=== PATIENT | female | born 1960 | race Caucasian/White ===

== ENCOUNTER 2023-08-24 18:48 | Emergency (ER) | payer MEDICARE, OTHER, SELFPAY ==
[2023-08-24 18:51] VITALS: BP 139/89; PULSE 74; RESP 18; TEMP 36.2; O2SAT 99
[2023-08-24 23:23] LABS: Basophils Percent Auto 0.5 % (0.2-1.2); Eosinophils Absolute Auto 0.1 K/mm3 (0-0.3); Eosinophils Percent Auto 1.8 % (0-4.4); Hematocrit 34.2 % (37.0-47.0); Hemoglobin 11.3 g/dL (12.0-15.0); Immature Granulocyte Absolute 0.01 K/mm3 (0.00-0.031); Immature Granulocyte Percent A 0.3 % (0-0.5); Lymphocytes Percent Auto 15.2 % (18.3-44.2); Mean Corpuscular Hemoglobin 31.1 pg (26-34); Mean Corpuscular Volume 94.2 fl (80-100); Mean Platelet Volume 10.6 fl (7.4-10.4); Monocytes Absolute Auto 0.3 K/mm3 (0.1-0.6); Monocytes Percent Auto 7.9 % (2.6-8.5); Neutrophils Absolute Auto 2.9 K/mm3 (1.3-6.7); Neutrophils Percent Auto 74.3 % (45.5-73.1); Platelet Count Result 186 k/mm3 (150-375); Red Blood Count 3.63 M/mm3 (4.2-5.4); Red Cell Distribution Width 12.3 % (11.5-14.5); White Blood Count 3.9 K/mm3 (4.5-10.0)
[2023-08-24 23:36] VITALS: BP 124/92; PULSE 69; RESP 15; O2SAT 100
[2023-08-24 23:37] VITALS: O2SAT 100
[2023-08-24 23:38] LABS: Alanine Aminotransferase 13 U/L (6-35); Albumin Level 4.2 g/dL (3.5-5.1); Alkaline Phosphatase 53 U/L (38-126); Anion Gap 8 mmol/L (8-16); Aspartate Amino Transferase 20 U/L (14-36); Bilirubin,Total 0.6 mg/dL (0.2-1.3); Blood Urea Nitrogen 7 mg/dL (7-17); Calcium 9.4 mg/dL (8.4-10.2); Carbon Dioxide 32 mmol/L (22-30); Chloride 90 mmol/L (98-107); Estimated CRCL calculation 83 ml/min; Estimated Glomerular Filt Rate > 60; Glucose 82 mg/dL (65-110); Lipase 37 U/L (23-300); Sodium 130 mmol/L (137-145)
[2023-08-25 00:27] VITALS: BP 124/85; PULSE 64; RESP 16; O2SAT 100
[2023-08-25 00:29] LABS: Bacteria Urine 4+ /hpf; Non Pathogenic Casts 0-2; RBC Urine 0-2 /hpf (0-2); Squamous Epithelial Cell Urine None seen /hpf (Few)
[2023-08-25 00:34] LABS: Add Urine Microscopic? YES; Appearance Urine Cloudy (Clear); Bilirubin Urine Negative (Negative); Blood Urine Trace (Negative); Color Urine Yellow (Yellow); Glucose Urine UA Negative (Negative); Ketones Urine 1+ mg/dL (Negative); Leukocyte Esterase Ur 1+ LEU/UL (Negative); Nitrate Urine Positive (Negative); Protein Urine Negative (Negative); Urobilinogen Urine 0.2 mg/dL (<2.0); pH Urine 6.5 (5.0-9.0)
--- NOTE | 2023-08-25 00:50 | ED.GENADULT ---
HPI - General Adult General Chief complaint: Abdominal Pain Stated complaint: abd pain/sob Time Seen by Provider: 08/25/23 00:07 Source: patient Mode of arrival: ambulatory Limitations: no limitations History of Present Illness HPI narrative: This is a 63-year-old female who presents to the ED with chief complaints of multiple loose stools head reports they are watery in nature or pleural denies a bladder lift his. Denies abdominal pain, nausea or vomiting. Denies any urinary complaints, fevers or chills. No recent illness. Review of Systems Review of Systems: All systems as dictated in HPI Exam Narrative: GENERAL: Well-appearing, well-nourished, and in no acute distress. HEAD: Normocephalic, atraumatic. EYES: PERRLA and EOMI. ENT: Nares clear, no rhinorrhea or epistaxis. Mucous membranes moist. Oropharynx without tonsillar hypertrophy exudate or other lesions. NECK: Supple. No adenopathy or masses. CHEST: No respiratory distress. Clear to auscultation. No wheezes rales or rhonchi. 100% on 3 L, her home baseline HEART: Regular rate and rhythm. No murmur heard. Normal peripheral pulses. ABDOMEN: Soft, nontender, nondistended, normal active bowel sounds. MSK: Normal range of motion. No edema. SKIN: Warm, dry, no rash. NEURO: Alert and oriented x3. No focal deficits. PSYCH: Normal mood and affect. Course Vital Signs Vital signs: Vital Signs Temperature 97.1 F L 08/24/23 18:51 Pulse Rate 74 08/24/23 18:51 Respiratory Rate 18 08/24/23 18:51 Blood Pressure 139/89 08/24/23 18:51 Pulse Oximetry 99 08/24/23 18:51 Oxygen Delivery Nasal Cannula 08/24/23 18:51 Oxygen Flow Rate 2 08/24/23 18:51 Temperature 97.9 F 08/25/23 01:08 Pulse Rate 70 08/25/23 01:08 Respiratory Rate 20 08/25/23 01:08 Blood Pressure 128/65 08/25/23 01:08 Pulse Oximetry 100 08/25/23 01:08 Oxygen Delivery Nasal Cannula 08/24/23 23:37 Oxygen Flow Rate 3 08/24/23 23:37 Medical Decision Making MDM Narrative Medical decision making narrative: This is a 63-year-old female who presents to the ED with chief complaint of a months worth of diarrhea. Vitals at home. Afebrile. Exam was unremarkable. No evidence of acute abdomen. Lab work only remarkable for slight anemia with hemoglobin of 11.3. No leukocytosis. CMP shows slightly low sodium at 12:00 a.m. with urinary. Otherwise CMP is really unremarkable. Lipase normal. Urinalysis is remarkable for a nitrite positive urine with 1+ leuks 11-20 whites, 4+ bacteria. Cultures were sent of the urine. She will be given prescription for Keflex for this. This may be contributing to her systemic symptoms of diarrhea, but this may be another issue. She has no flank pain. She came in on 3 L which is her home oxygen for COPD. She is stable for discharge home. GI referral given. pt will be discharged in stable condition. Return precautions given and supportive measures discussed. Pt is understanding and agreeable with plan for discharge and follow-up with PCP. Vital Signs Vital Signs: Vital Signs Temperature 97.1 F L 08/24/23 18:51 Pulse Rate 74 08/24/23 18:51 Respiratory Rate 18 08/24/23 18:51 Blood Pressure 139/89 08/24/23 18:51 Pulse Oximetry 99 08/24/23 18:51 Oxygen Delivery Nasal Cannula 08/24/23 18:51 Oxygen Flow Rate 2 08/24/23 18:51 Temperature 97.9 F 08/25/23 01:08 Pulse Rate 70 08/25/23 01:08 Respiratory Rate 20 08/25/23 01:08 Blood Pressure 128/65 08/25/23 01:08 Pulse Oximetry 100 08/25/23 01:08 Oxygen Delivery Nasal Cannula 08/24/23 23:37 Oxygen Flow Rate 3 08/24/23 23:37 Lab Data 08/24/23 23:03 08/24/23 23:03 Labs: Lab Results 08/24/23 08/24/23 Range/Units 23:03 23:52 WBC 3.9 L (4.5-10.0) K/mm3 RBC 3.63 L (4.2-5.4) M/mm3 Hgb 11.3 L (12.0-15.0) g/dL Hct 34.2 L (37.0-47.0) % MCV 94.2 (80-100) fl MCH 31.1 (26-34) pg MC
[2023-08-25] MEDS: CEPHALEXIN 500 MG CAPSULE PO (01:03)
[2023-08-25 01:08] VITALS: BP 128/65; PULSE 70; RESP 20; TEMP 36.6; O2SAT 100
== END 2023-08-25 01:09 | disposition home or self-care (01) ==
PROVIDERS: Emergency Medicine; Emergency Provider Physician Assistant; PCP Internal Medicine
DX: N39.0 Urinary tract infection, site not specified (principal)
CPT/HCPCS: 36415; 80053; 81001; 83690; 85025; 87077; 87086; 87186; 99283; A9270

== ENCOUNTER 2023-09-11 13:32 | Outpatient (CLI) | payer MEDICARE, OTHER, SELFPAY ==
[2023-09-11 16:03] LABS: CRP < 0.5 mg/dL (<1.0)
[2023-09-11 16:06] LABS: Erythrocyte Sedimentation Rate 23 mm/hr (0-20)
[2023-09-17 00:58] LABS: Tissue Transglutaminase IgG Ab <1.0 U/mL (<15.0)
[2023-09-17 11:49] LABS: Tissue Transglutaminase IgA Ab <1.0 U/mL (<15.0)
== END 2023-09-11 13:33 | disposition home or self-care (01) ==
PROVIDERS: PCP Internal Medicine; Visit Provider Internal Medicine Gastroenterology
DX: R19.7 Diarrhea, unspecified (principal)
CPT/HCPCS: 36415; 85652; 86140; 86364; 87177; 87209

== ENCOUNTER 2023-10-08 00:33 | Day surgery (SDC) | payer MEDICARE, OTHER, SELFPAY ==
[2023-09-12 13:48] VITALS: BMI 17.5
--- NOTE | 2023-10-06 09:51 | SUR.PREOP ---
Patient called regarding upcoming procedure. Reviewed preop instructions, appointment times, and procedure prep. Pt stated she could not find Magnesium Citrate and had been to several different store. Instructed pt to omit it for the prep. Stressed the importance of taking all of the Mirlax solution. Patient voiced understanding.
[2023-10-08 11:52] VITALS: BP 106/79; PULSE 92; RESP 18; TEMP 36.2; O2SAT 95
[2023-10-08] MEDS: LACTATED RINGERS 1,000 ML 150 ML IV CONT (11:59)
--- NOTE | 2023-10-08 12:01 | P.PNAN_ITS ---
Anes - Initial Pre Proc Eval Procedure: Operation Date: 10/08/23 12:30 Proposed Procedures p Colonoscopy - Jack Boswell MD Date/Time: 10/08/23 12:01 Surgeon: Jack Boswell MD Pre Op Diagnosis: diarrhea Patient Data Age: 63 Gender: F Height: 1.6 m Weight: 43.8 kg Last Vital Signs Temp 97.2 F L 10/08/23 11:52 Pulse 92 10/08/23 11:52 Resp 18 10/08/23 11:52 BP 106/79 10/08/23 11:52 Pulse Ox 95 10/08/23 11:52 O2 Del Method Nasal Cannula 10/08/23 11:52 O2 Flow Rate 3 10/08/23 11:52 Allergies Allergy/AdvReac Type Severity Reaction Status Date / Time No Known Allergies Allergy Verified 10/08/23 11:51 Home Medications Medication Instructions Recorded Confirmed Type albuterol sulfate 90 mcg/actuation 1 inh inhalation Q4H 09/11/23 10/08/23 History aerosol inhaler budesonide-formoterol HFA 160 2 puff inhalation Q12H 09/11/23 10/08/23 History mcg-4.5 mcg/actuation aerosol inhaler (Symbicort) sertraline 50 mg tablet 50 mg PO DAILY 09/11/23 10/08/23 History tiotropium bromide 18 mcg capsule 1 cap inhalation DAILY 09/11/23 10/08/23 History with inhalation device (Spiriva with HandiHaler) Patient hx anesthesia problems: none Family hx anesthesia problems: none Results Review: All pre-operative results and documents have been reviewed as part of the pre- operative evaluation. [facility] Past Medical History Medical History (Updated 09/11/23 @ 13:29 by Jack Boswell MD) Allergies Anxiety COPD (chronic obstructive pulmonary disease) Diarrhea Lower abdominal pain Mucus in stool Family History Family History Father Diabetes mellitus Esophageal cancer Heart disease Hypertension Mother COPD (chronic obstructive pulmonary disease) Social History Social History Smoking packs per day: 1 Smoking cigarettes per day: 20.0 Years smoked: 25 Smoking pack-years: 25.00 Smoking status: Former smoker Tobacco type: cigarettes Alcohol intake: never Substance use: never Substance use type: does not use Living arrangements: with family Spiritual care concerns: No Anes - Eval Final PreProcedure Day of Procedure 10/08/23 12:01 Patient weight: normal Heart: regular rate and rhythm Lungs: clear to auscultation Neurological: alert and oriented Last oral intake: >/= 8 hours Emergent: no Anesthetic plan: proceed Results Review: All pre-operative results and documents have been reviewed as part of the pre- operative evaluation. Informed Consent: The patient's anesthetic plan and its attendant risks and benefits were discussed with the patient/family/POA. Questions were solicited and answers provided to the satisfaction of the patient/family/POA.
--- NOTE | 2023-10-08 12:07 | WPDHPUPDATE1 ---
History and Physical Update Update Date/Time: 10/08/23 12:07 History and Physical has been reviewed, including an updated exam of the patient. There are NO changes in the patient's condition. Risks, benefits, and alternatives have been discussed and questions answered. Patient agrees to proceed with procedure.
[2023-10-08 12:44] VITALS: BP 109/78; PULSE 86; RESP 16; O2SAT 96
[2023-10-08 12:54] VITALS: BP 115/80; PULSE 83; RESP 20; O2SAT 97
[2023-10-08 13:04] VITALS: BP 123/82; PULSE 76; RESP 19; O2SAT 100
--- NOTE | 2023-10-08 14:24 | SUR.PHASEII ---
1305 Removed EKG electrode from left arm causing a skin tear. Skin tear dressed in Mepilex.
== END 2023-10-08 13:16 | disposition home or self-care (01) ==
PROVIDERS: PCP Internal Medicine; Visit Provider Internal Medicine Gastroenterology
PROC: 0DJD8ZZ Inspection of Lower Intestinal Tract, Via Natural or Artificial Opening Endoscopic (ICD-10-PCS; CPT 45378; principal; 2023-10-08 12:30)
DX: C19 Malignant neoplasm of rectosigmoid junction (principal); J44.9 Chronic obstructive pulmonary disease, unspecified; F41.9 Anxiety disorder, unspecified; Z87.891 Personal history of nicotine dependence; Z99.81 Dependence on supplemental oxygen
CPT/HCPCS: 45380; 45381; 88305; 88342; J2704; J7120

== ENCOUNTER 2023-10-15 11:30 | Outpatient (CLI) | payer MEDICARE, OTHER, SELFPAY ==
[2023-10-15 11:54] LABS: Hematocrit 35.4 % (37.0-47.0); Hemoglobin 11.2 g/dL (12.0-15.0); Mean Corpuscular HGB Conc 31.6 g/dl (32-36); Mean Corpuscular Volume 94.9 fl (80-100); Mean Platelet Volume 9.7 fl (7.4-10.4); Platelet Count Result 214 k/mm3 (150-375); Red Blood Count 3.73 M/mm3 (4.2-5.4); Red Cell Distribution Width 12.4 % (11.5-14.5); White Blood Count 4.5 K/mm3 (4.5-10.0)
[2023-10-15 12:08] LABS: Alanine Aminotransferase 12 U/L (6-35); Albumin Level 4.1 g/dL (3.5-5.1); Alkaline Phosphatase 53 U/L (38-126); Anion Gap 5 mmol/L (8-16); Aspartate Amino Transferase 20 U/L (14-36); Bilirubin,Total 0.5 mg/dL (0.2-1.3); Blood Urea Nitrogen 9 mg/dL (7-17); Carbon Dioxide 36 mmol/L (22-30); Chloride 89 mmol/L (98-107); Estimated Glomerular Filt Rate > 60; Glucose 89 mg/dL (65-110); Potassium 4.1 mmol/L (3.4-5.0); Sodium 130 mmol/L (137-145)
[2023-10-15 12:40] LABS: Carcinoembryonic Antigen 4.1 ng/mL (0.0-3.0)
== END 2023-10-15 11:31 | disposition home or self-care (01) ==
LOC: ANHLAB 11:35
PROVIDERS: PCP Internal Medicine; Visit Provider Internal Medicine Gastroenterology
DX: C18.9 Malignant neoplasm of colon, unspecified (principal); R10.30 Lower abdominal pain, unspecified; C19 Malignant neoplasm of rectosigmoid junction
CPT/HCPCS: 36415; 80053; 82378; 85027

== ENCOUNTER 2023-10-22 09:27 | Outpatient (CLI) | payer MEDICARE, OTHER, SELFPAY ==
--- NOTE | ~2023-10-22 | CT_ITS ---
CT of the Abdomen and Pelvis: Indication: Colon cancer Technique: 2.5 mm axial scans were obtained through the abdomen and pelvis following intravenous adm inistration of 100 cc of Omnipaque 350. Dose reduction technique was used on this scan by utilizing a utomated exposure control and iterative reconstruction technique. The dose-length product (DLP) was 1 63.01 mGy-cm. Findings: Scans through the lung bases are unremarkable. The liver, spleen, pancreas, gallbladder, adrenals and kidneys are within normal limits. There are a therosclerotic calcifications of the aorta. No lymphadenopathy. There is masslike wall thickening of the distal rectum, consistent with colonic neoplasm, with mass m easuring approximately 5.8 cm in maximum diameter (coronal image 80, axial images 108-131). Prominent stool narrowing of the large bowel could reflect constipation. Images through the pelvis were performed. Urinary bladder unremarkable. No pelvic mass seen. No ascit es. Impression: Findings compatible with distal rectal adenocarcinoma, measuring approximately 5. Centimeters in maxi mum diameter, as detailed above. No evidence for distant metastatic disease identified. Reviewed, dictated and finalized at location M. ERCIAL COLLECTIONS SPECIALIST Impression: Findings compatible with distal rectal adenocarcinoma, measuring approximately 5. Centimeters in maximum diameter, as detailed above. No evidence for distant metastatic disease identified.
== END 2023-10-22 09:28 | disposition home or self-care (01) ==
LOC: ANHIMG 09:28
PROVIDERS: PCP Internal Medicine; Visit Provider Internal Medicine Gastroenterology
DX: C19 Malignant neoplasm of rectosigmoid junction (principal)
CPT/HCPCS: 74177; Q9967

== ENCOUNTER 2023-10-23 14:32 | Outpatient (CLI) | payer MEDICARE, OTHER, SELFPAY ==
[2023-10-26 06:00] LABS: CA 15-3 26 U/mL (<32)
== END 2023-10-23 14:33 | disposition home or self-care (01) ==
LOC: ANHLAB 14:34
PROVIDERS: PCP Internal Medicine; Visit Provider Internal Medicine Hematology & Oncology
DX: C20 Malignant neoplasm of rectum (principal); C50.919 Malignant neoplasm of unspecified site of unspecified female breast; C79.9 Secondary malignant neoplasm of unspecified site
CPT/HCPCS: 36415; 86300

== ENCOUNTER 2023-10-30 07:24 | Outpatient (CLI) | payer MEDICARE, OTHER, SELFPAY ==
--- NOTE | ~2023-10-30 | PE_ITS ---
EXAMINATION: PET skull to mid thigh DATE: 10/30/2023 09:46 INDICATION: Metastasis from breast cancer. TECHNIQUE: Blood glucose level was 68 mg/dL. 10.708 mCi of 18-fluorodeoxyglucose (18-FDG) was adminis tered i.v. Low dose computed tomography (CT) images were acquired from the base of the brain to the p roximal thighs for attenuation correction and anatomic localization. Automated exposure control was e mployed. Dose-length product (DLP) was 485 mGy-cm. Positron emission tomography (PET) images were acq uired in the same distribution. COMPARISON: CT abdomen and pelvis 10/22/2023 FINDINGS: Head/neck: There are no pathologically enlarged lymph nodes. Chest: There is severe emphysema. Calcified right lung nodules and calcified right hilar lymph nodes are consistent with old granulomatous disease. There are a few nodules in left lower lobe without inc reased activity measuring up to 5 mm, likely benign. No pleural effusion. Abdomen/pelvis/proximal thighs: There is a 10 mm mass in left hepatic lobe with maximum SUV of 4.1. T he gallbladder, pancreas, and adrenal glands are normal. Calcifications in the spleen are consistent with old granulomatous disease. The kidneys are normal. There is a 6.7 cm mass in the rectum with max imum SUV of 22.1. There is diverticulosis of the colon without evidence of diverticulitis. There are no dilated loops of bowel. There are no pathologically enlarged lymph nodes. There is no ascites. The re is no osseous malignancy. IMPRESSION: 1. Rectal mass and liver mass with increased activity, consistent with metastatic disease. Reviewed, dictated and finalized at location E. MACHINE OPERATOR IMPRESSION: 1. Rectal mass and liver mass with increased activity, consistent with metastat ic disease.
[2023-10-30 08:04] LABS: Glucose Point of Care 68 mg/dl (65-105)
== END 2023-10-30 07:25 | disposition home or self-care (01) ==
PROVIDERS: PCP Internal Medicine; Visit Provider Internal Medicine Hematology & Oncology
DX: C20 Malignant neoplasm of rectum (principal)
CPT/HCPCS: 78815; A9552

== ENCOUNTER 2023-11-07 11:57 | Outpatient (CLI) | payer MEDICARE, OTHER, SELFPAY ==
--- NOTE | ~2023-11-07 | MMUS_ITS ---
EXAMINATION: MM diagnostic janet BI w abida, US breast LT limited HISTORY: Sigmoid colon malignancy and liver mass of possible breast origin TECHNIQUE: Craniocaudal, mediolateral, and mediolateral oblique 3-D tomosynthesis images of the breas ts were performed and synthetic 2-D images were generated. CAD analysis was submitted and interpreted . High resolution limited left breast ultrasound was performed. COMPARISON: No prior mammogram is currently available for comparison at this institution. BREAST PARENCHYMAL COMPOSITION: The breasts are extremely dense, which lowers the sensitivity of mamm ography. FINDINGS: MAMMOGRAPHIC FINDINGS: No suspicious mass, calcification, or architectural distortion are identified in either breast to sug gest malignancy. Asymmetry is present in the upper outer quadrant of the left breast without other as sociated suspicious features ULTRASOUND: There is no evidence of focal abnormal solid or cystic mass in the vicinity of the left breast asymme try IMPRESSION: 1. No mammographic or sonographic evidence of malignancy. 2. Recommend routine screening mammography in one year. BI-RADS Category 2: Benign finding(s). Reviewed, dictated and finalized at location A. BING MACHINE OPERATOR IMPRESSION: 1. No mammographic or sonographic evidence of malignancy. 2. Recommend routine screening mammography in one year. BI-RADS Category 2: Benign finding(s).
== END 2023-11-07 11:58 | disposition home or self-care (01) ==
PROVIDERS: PCP Internal Medicine; Visit Provider Internal Medicine Hematology & Oncology
DX: N63.21 Unspecified lump in the left breast, upper outer quadrant (principal); C50.919 Malignant neoplasm of unspecified site of unspecified female breast; C79.9 Secondary malignant neoplasm of unspecified site
CPT/HCPCS: 76642; 77062; 77066; G0279

== ENCOUNTER 2023-11-21 08:30 | Outpatient (CLI) | payer MEDICARE, OTHER, SELFPAY ==
[2023-11-14 14:14] VITALS: BMI 17.7
--- NOTE | 2023-11-14 14:15 | PC.NURSE ---
Pre Radiology instructions Report to the outpatient [facility] on date 11/21/23 at time 0830 for procedure Time: 1030. YOU MAY BE MONITORED AT HOSPITAL FOR UP TO 4 HOURS AFTER YOUR PROCEDURE. A visitor will be allowed to accompany the patient into the hospital. You and your visitor will be asked to self-screen and do not enter if you have any COVID symptoms. A mask is OPTIONAL within the hospital. Patients are to have no food or drink 6 hours prior to procedure time Driving will be restricted after the procedure, you must have a person to drive you home. Labs will be drawn in preop area and once reviewed, you will be taken to radiology area for procedure. When the procedure is completed, you will be taken to outpatient where you will be monitored for several hours. You may have one visitor in this area. Other than holding anti-coagulants, patient may take other medication(s) as scheduled. Prior to your appointment date patients are instructed to hold anti-coagulants after discussing with ordering provider to stop. If unable to discontinue anti-coagulants please notify radiologist. ? No aspirin or warfarin (Coumadin) for 7 days prior to the procedure. ? No clopidogrel (Plavix), ticagrelor (Brilinta), prasugrel (Effient) or dabigatran (Pradaxa) for 5 days prior to the procedure. ? No rivaroxaban (Xarelto), apixaban (Eliquis), dipyridamole (Aggrenox or Persantine) or cilostazol (Pletal) for 2 days prior to the procedure. Medications to discontinue per physician: N/A Date to take last dose: N/A Please leave all valuables, including medications, at home the day of procedure. The hospital will not accept responsibility for valuables. Wear comfortable, loose fitting clothing.? Follow any additional instructions given to you from ordering provider. Telephone instructions given to BEVERLY GARCIA and asked if any additional questions and then verbalized understanding. Patient advised to call scheduling provider office or registration scheduling [phone] if any additional questions.
[2023-11-21] VITALS (12 sets, daily range): BP systolic 108–121; BP diastolic 68–78; PULSE 63–86; RESP 16–20; TEMP 36.5; O2SAT 93–100; BMI 17.4
--- NOTE | ~2023-11-21 | US_ITS ---
EXAMINATION: US biopsy liver DATE: 11/21/2023 11:27 INDICATION: Liver mass. Rectal cancer. TECHNIQUE: The procedure including the risks, benefits, and alternatives was discussed with the patie nt. Risks discussed included bleeding and infection. The patient understood the risks and agreed to p roceed. The skin overlying the left hepatic lobe was prepped and draped in usual sterile fashion. An esthetic was administered with 1% lidocaine subcutaneously. An 18 gauge core biopsy needle was then used to obtain 3 core biopsy specimens under continuous sonographic guidance. The entry site was traci kelley and dressed. There were no immediate complications. FINDINGS: Ultrasound images demonstrate the needle in a 1.6 cm mass in left hepatic lobe. IMPRESSION: 1. Ultrasound-guided core needle biopsy of a liver mass. Reviewed, dictated and finalized at location A. RTED BLOCK OPERATOR
[2023-11-21 09:17] LABS: Platelet Count Result 184 k/mm3 (150-375)
[2023-11-21 09:47] LABS: INR 0.9; Prothrombin Time 12.2 Seconds (11.1-14.7)
[2023-11-21] MEDS: SODIUM CHLORIDE 0.9% IV 1,000 ML 30 ML IV CONT (11:13)
== END 2023-11-21 15:25 | disposition home or self-care (01) ==
PROVIDERS: PCP Internal Medicine; Referring Provider Internal Medicine Hematology & Oncology; Visit Provider Radiology Diagnostic Radiology
PROC: BF45ZZZ Ultrasonography of Liver (ICD-10-PCS; CPT 47000; principal; 2023-11-21 10:30)
DX: C20 Malignant neoplasm of rectum (principal); C78.7 Secondary malignant neoplasm of liver and intrahepatic bile duct
CPT/HCPCS: 36415; 47000; 76942; 85049; 85610; 88307; 88342; J7030

== ENCOUNTER 2023-12-05 11:13 | Outpatient (CLI) | payer MEDICARE, OTHER, SELFPAY ==
[2023-12-05 11:33] LABS: Basophils Percent Auto 0.7 % (0.2-1.2); Eosinophils Absolute Auto 0.1 K/mm3 (0-0.3); Eosinophils Percent Auto 1.6 % (0-4.4); Hematocrit 36.9 % (37.0-47.0); Hemoglobin 11.6 g/dL (12.0-15.0); Immature Granulocyte Absolute 0.01 K/mm3 (0.00-0.031); Immature Granulocyte Percent A 0.2 % (0-0.5); Lymphocytes Absolute Auto 0.56 K/mm3 (0.9-3.2); Lymphocytes Percent Auto 12.5 % (18.3-44.2); Mean Corpuscular HGB Conc 31.4 g/dl (32-36); Mean Corpuscular Hemoglobin 30.1 pg (26-34); Mean Corpuscular Volume 95.8 fl (80-100); Monocytes Absolute Auto 0.4 K/mm3 (0.1-0.6); Monocytes Percent Auto 7.8 % (2.6-8.5); Neutrophils Absolute Auto 3.5 K/mm3 (1.3-6.7); Neutrophils Percent Auto 77.2 % (45.5-73.1); Platelet Count Result 184 k/mm3 (150-375); Red Blood Count 3.85 M/mm3 (4.2-5.4); Red Cell Distribution Width 12.9 % (11.5-14.5); White Blood Count 4.5 K/mm3 (4.5-10.0)
[2023-12-05 13:40] LABS: Iron 54 ug/dL (37-170)
[2023-12-05 13:48] LABS: Alanine Aminotransferase 15 U/L (6-35); Albumin Level 4.4 g/dL (3.5-5.1); Alkaline Phosphatase 52 U/L (38-126); Anion Gap 5 mmol/L (8-16); Aspartate Amino Transferase 24 U/L (14-36); Bilirubin,Total 0.4 mg/dL (0.2-1.3); Blood Urea Nitrogen 8 mg/dL (7-17); Calcium 9.8 mg/dL (8.4-10.2); Carbon Dioxide 37 mmol/L (22-30); Chloride 94 mmol/L (98-107); Estimated Glomerular Filt Rate > 60; Glucose 86 mg/dL (65-110); Potassium 4.2 mmol/L (3.4-5.0); Sodium 136 mmol/L (137-145)
[2023-12-05 14:15] LABS: Carcinoembryonic Antigen 4.3 ng/mL (0.0-3.0)
[2023-12-05 14:30] LABS: Percent Iron Saturation 19 % (20-50)
== END 2023-12-05 11:14 | disposition home or self-care (01) ==
LOC: ANHLAB 11:15
PROVIDERS: PCP Internal Medicine; Visit Provider Internal Medicine Hematology & Oncology
DX: C20 Malignant neoplasm of rectum (principal); D64.9 Anemia, unspecified
CPT/HCPCS: 36415; 80053; 82378; 82728; 83540; 83550; 85025

== ENCOUNTER 2024-10-21 10:59 | Outpatient (CLI) | payer MEDICARE, SELFPAY ==
[2024-10-21 11:24] LABS: Basophils Absolute Auto 0.1 K/mm3 (0.0-0.1); Basophils Percent Auto 0.8 % (0.2-1.2); Eosinophils Absolute Auto 0.1 K/mm3 (0-0.3); Eosinophils Percent Auto 0.8 % (0-4.4); Hematocrit 38.2 % (37.0-47.0); Hemoglobin 11.3 g/dL (12.0-15.0); Immature Granulocyte Absolute 0.02 K/mm3 (0.00-0.031); Immature Granulocyte Percent A 0.3 % (0-0.5); Lymphocytes Absolute Auto 0.65 K/mm3 (0.9-3.2); Lymphocytes Percent Auto 10.9 % (18.3-44.2); Mean Corpuscular HGB Conc 29.6 g/dl (32-36); Mean Corpuscular Hemoglobin 29.2 pg (26-34); Mean Corpuscular Volume 98.7 fl (80-100); Mean Platelet Volume 9.9 fl (7.4-10.4); Monocytes Absolute Auto 0.7 K/mm3 (0.1-0.6); Monocytes Percent Auto 11.1 % (2.6-8.5); Neutrophils Absolute Auto 4.5 K/mm3 (1.3-6.7); Neutrophils Percent Auto 76.1 % (45.5-73.1); Platelet Count Result 285 k/mm3 (150-375); Red Blood Count 3.87 M/mm3 (4.2-5.4); Red Cell Distribution Width 13.5 % (11.5-14.5)
[2024-10-21 11:45] LABS: Alanine Aminotransferase 32 U/L (6-35); Albumin Level 3.5 g/dL (3.5-5.1); Alkaline Phosphatase 88 U/L (38-126); Aspartate Amino Transferase 44 U/L (14-36); Bilirubin,Total 0.4 mg/dL (0.2-1.3); Blood Urea Nitrogen 16 mg/dL (7-17); Carbon Dioxide > 40 mmol/L (22-30); Chloride 93 mmol/L (98-107); Estimated Glomerular Filt Rate > 60; Glucose 77 mg/dL (65-110); Potassium 4.5 mmol/L (3.4-5.0); Sodium 138 mmol/L (137-145)
[2024-10-21 11:54] LABS: Ovalocytes 2+; Platelet Estimate Adequate (Adequate); Schistocytes None Seen
--- OUTSIDE RECORDS SUMMARY | 2024-10-21 12:05 | XMS_ITS | Clinical Summary ---
Author Organization [facility] [address] [place] [address] Care Team Providers Care Medical Detail Representative Name Role Phone Bryant Balderas MD Primary Care Provider [phone] Allergies No known active allergies Medications albuterol sulfate HFA 90 mcg/actuation aerosol inhaler Take 2 Puffs by inhalation every 6 hours as needed for Shortness of Breath. Active tiotropium (SPIRIVA) 18 mcg capsule Take 18 mcg by inhalation daily. Active budesonide-form oteroL (SYMBICORT) 80-4.5 mcg/actuation HFA Aerosol Inhaler Take 2 Puffs by inhalation 2 times daily. Active sertraline (ZOLOFT) 50 mg tablet Take 50 mg by mouth daily. Active Active Problems No known active problems Encounters Date Type Department Care Team Description 10/13/2024 External Device Data [facility] ABSTRACTION Provider, Abstract 10/13/2024 External Device Data [facility] ABSTRACTION Provider, Abstract 10/05/2024 External Device Data [facility] ABSTRACTION Provider, Abstract 07/21/2024 External Device Data [facility] ABSTRACTION Provider, Abstract from Last 3 Months Family History Medical History Relation Name Comments Diabetes Father Esophageal Cancer Father Heart Disease Father Relation Name Status Comments Brother Alive Daughter 1 Alive Daughter 2 Alive Father Mother Alive Sister Alive Social History Tobacco Use Types Packs/Day Years Used Date Smoking Tobacco: Former Cigarettes Smokeless Tobacco: Never Tobacco Cessation:Counseling Given: Not Answered Alcohol Use Standard Drinks/Week Comments Yes 0 (1 standard drink = 0.6 oz pur e alcohol) Comments Unknown Sex and Gender Information Value Date Recorded Sex Assigned at Not on file Legal Sex Female 3:04 PM FOUNDATION RELATIONS MANAGER Gender Identity Not on file Sexual Orientation Not on file Last Filed Vital Signs Vital Sign Reading Time Taken Comments Blood Pressure 126/81 12/05/2023 10:44 AM CDT Pulse 69 12/05/2023 10:44 AM CDT Temperature 36.2 ??C (97.1 ??F) 12/05/2023 10:44 AM C DT Respiratory Rate 12 12/05/2023 10:44 AM CDT Oxygen Saturation 90% 12/05/2023 10:44 AM CDT Inhaled Oxygen Concentration - - Weight 44 kg (97 lb) 10/23/2023 1:36 PM FOUNDATION RELATIONS MANAGER Height - - Body Mass Index - - Plan of Treatment Health Maintenance Due Date Last Done Comments RSV VACCINE (60+ or ) (1 - Risk 60-74 years 1-dose series) 2019 COVID-19 Vaccine (4 - 2023-2 5 season) 2024 08/31/2021, 12/16/2020, 11/18/2020 OSTEOPOROSIS SCREENING 2024 DTAP/TDAP/TD VACCINES (2 - T d or Tdap) 10/12/2024 10/12/2014 BREAST CANCER SCREENING 11/07/2024 11/07/2023 PNEUMOCOCCAL VACCINE 65+ YEA RS (3 of 3 - PCV20 or PCV21) 02/01/2027 02/01/2022, 05/18/2015, 09/22/2010 ZOSTER VACCINE Completed 09/09/2019, 07/10/2019 COLORECTAL SCREENING Discontinued 10/08/2023, 10/08/19 24 Colorectal Cancer Screening Discontinued INFLUENZA VACCINE Completed 06/08/2024, , 07/19/2022, Additional history exists FIT-DNA Q 3 years Discontinued FIT/FOBT Q 1 year Discontinued Flex Sig/CT Colonography Q 5 years Discontinued Procedures Procedure Name Priority Date/Time Associated Diagnosis Comments MAMMO BILAT DIAGNOSTIC Routine 11/07/2023 12:36 PM FOUNDATION RELATIONS MANAGER from Last 3 Months or Most Recently Relevant to Health Maintenance Results * MAMMO BILAT DIAGNOSTIC (11/07/2023 12:36 PM FOUNDATION RELATIONS MANAGER) Anatomical Region Laterality Modality Breast Bilateral Other Atif Brown MD MAMMO ORDERABLES Final Result from Last 3 Months or Most Recently Relevant to Health Maintenance Insurance MEDICARE PART A AND B [facility] Care Teams Medical Detail Representative Relationship Specialty Start Date End Date Bryant Balderas MD [address] [place] [address] PCP - General Internal Medicine 10/23/23
--- OUTSIDE RECORDS SUMMARY | 2024-10-21 12:05 | XMS_ITS | Data Portability ---
Author Organization JIGNESH PACODolores Aburto Address [address] [facility] / [place] [address] Care Team Providers Care Coke Inspector Name Role Phone RUSLAN OBRIEN Medical Oncologist KENNETH BARRY Pain Management ASHLEY BALDERAS Primary Care Provider Assessment Encounter Date Assessment Date Assessment LastModified by Organization Details LastModified Time 03/15/2024 03/15/2024 we will continue current therapy she has chosen not to see oncologist breast tree has been prescribed I will see her back in about 3 months COPD oxygen metastatic colon cancer discussed at length as well as her anxiety Not available 03/20/2024 14:01:53 06/08/2024 06/08/2024 CBC CMP LIPID PREALBUMIN level ensure or boost daily flu shot. Recommend she get COVID vaccine and RSV as well I would like to see her back in a couple of months she is still contemplating what she is going to do if anything for treatment . Not available 06/08/2024 21:34:37 09/01/2024 09/01/2024 stage IV adenocarcinoma of the colon blood work has been ordered I have told her to get with Oncology to see if there is anything they can do to help with her weight I have told her to drink some boost. We will try to keep her up-to-date on all respiratory immunizations that she will let me give her. Her chronic hypoxic respiratory failure is limiting her daily activity see me in 3 months [email or web address] Not available 09/04/2024 20:17:20 Plan of Treatment Reminders Order Date Submit Date Provider Last Modified By Organization Details Last Modified Time Details Appointments ANY 15 2024 09:30A Tamia Balderas MD Not available Not available Not available ANY 15 2024 10:15A Tamia Balderas MD Not available Not available Not available Lab lipid panel, serum 2015 016 [facility], [address], [address], [place], [address], 07/23/2016 07:14:20 urinalysi s, complete 2015 016 [facility], [address], [address], [place], [address], 07/23/2016 07:14:21 CBC 2015 016 [facility], [address], [address], [place], [address], 07/23/2016 07:14:20 CMP, serum or plasma 2015 016 [facility], [address], [address], [place], [address], 07/23/2016 07:14:21 lipid panel, serum 2023 024 [facility], [address], [place], [address], 06/09/2024 15:12:06 CBC 2023 024 [facility], [address], [place], [address], 06/09/2024 15:12:08 CMP, serum or plasma 2023 024 [facility], [address], [place], [address], 06/09/2024 15:12:06 prealbumi n, serum 2023 024 [facility], [facility], [facility] [address], [place], [address], 06/09/2024 15:12:07 vitamin D, 25-hydrox y, total, serum 2023 024 [facility], [facility], [facility] [address], [place], [address], 09/02/2024 08:29:00 lipid panel, serum 2023 024 [facility], [facility], [facility] [address], [place], [address], 09/02/2024 08:28:51 T3, free, serum or plasma 2023 024 [facility], [facility], [facility] [address], [place], [address], 09/02/2024 08:28:57 T4, free, serum 2023 024 [facility], [address] [place] [address], [facility] [address], [place], [address], 09/02/2024 08:28:59 CBC w/ auto diff 2023 024 [facility], [address] [place] [address], [facility] [address], [place], [address], 09/02/2024 08:28:56 CMP, serum or plasma 2023 024 [facility], [address] [place] [address], [facility] [address], [place], [address], 09/02/2024 08:28:52 TSH, ultra-sen sitive, serum 2023 024 [facility], [facility], [facility] [address], [place], [address], 09/02/2024 08:28:55 cobalamin and folate panel, serum 2023 024 [facility], [facility] [address], [address], 09/02/2024 08:28:53 Referral pulmonary disease specialis t referral - COPD on oxygen/ Please call patient to schedule 2015 016 [email or web address] 8 Elda Barcenas MD, [address] [place], [address], 09/04/2016 10:21:20 Procedures None recorded. Surgeries None recorded. Imaging XR, chest, 2 view 2015 016 [facility] ([facility]), [address] [place], [address], 05/22/2016 02:26:02 Medication Orders pravastat in [address] [facility], [address] [place] [address], [address], 01/19/2024 10:55:38 Zithromax Z-Marco A 250 [address] [facility], [address] [place] [address], [address], 01/19/2024 10:52:31 Breztri Aerospher e 160 mcg-9mcg- 4.8mcg/ac tuation HFA aerosol inhaler 2023 024 [email or web address], [address] [place] [address], [address], 03/15/2024 13:56:37 Patient TargetsNo targets recorded. Patient Instructions Encounter Date Encounter Id Patient Instructions Last Modified By Organization Details Last Modified Time 05/21/2016 [id number] Flu vaccine when available, no appointment necessary [email or web address] Not available 05/21/2016 12:39:03 03/15/2024 [id number] eating healthy foods: care instructions [email or web address] Not available 03/15/2024 13:56:37 06/08/2024 [id number] eating healthy foods: care instructions [email or web address] Not available 06/08/2024 15:22:54 09/01/2024 [id number] eating healthy foods: care instructions [email or web address] Not available 09/01/2024 12:44:39 Reason for Referral Presser Automatic Referral for Chronic obstructive pulmonary disease COPD on oxygen/ Please call patient to schedule Referring Physician: Soham Daly, Internal Medicine, Encounter Date: 05/21/2016 Results Created Date Observation Date Name Description Value Unit Range Abnormal Flag Note LastModifiedBy Organization Detail LastModifiedTime 07/22/20 16 07/23/2016 lipid panel , serum cholesterol, total 158 mg/dL 100-19 9 Not Available [facility] ([facility]) [address] [place], [address], 07/23/2016 07:14:20 07/22/20 16 07/23/2016 lipid panel , serum triglyceride s 55 mg/dL 0-149 Not Available [facility] ([facility]) [address] [place], [address], 07/23/2016 07:14:20 07/22/20 16 07/23/2016 lipid panel , serum HDL cholesterol 84 mg/dL >39 ACCOR DING TO ATP-I II GUIDE LINES , HDL-C >59 MG/DL IS CONSI DERED A NEGAT MARGIE RISK FACTO R FOR CHD. Not Available [facility] ([facility]) [address] [place], [address], 07/23/2016 07:14:20 07/22/20 16 07/23/2016 lipid panel , serum VLDL cholesterol amilcar 11 mg/dL 5-40 Not Available [facility] ([facility]) [address] [place], [address], 07/23/2016 07:14:20 07/22/20 16 07/23/2016 lipid panel , serum LDL cholesterol calc 63 mg/dL 0-99 Not Available [facility] ([facility]) [address] [place], [address], 07/23/2016 07:14:20 07/22/20 16 07/23/2016 lipid panel , serum comment: PHYSICIAN ANESTHESIOLOGIST Not Available [facility] ([facility]) [address] [place], [address], 07/23/2016 07:14:20 07/22/20 16 07/23/2016 lipid panel , serum LDL/HDL ratio 0.8 ratio _unit s 0.0-3. 2 LDL/H DL RATIO MEN WOMEN 1/2 AVG.R ISK 1.0 1.5 AVG.R ISK 3.6 3.2 2X AVG.R ISK 6.2 5.0 3X AVG.R ISK 8.0 6.1 Not Available [facility] ([facility]) [address] [facility], [place], [address], 07/23/2016 07:14:20 07/22/20 16 07/23/2016 CBC WBC 6.5 x10e3 /uL 3.4-10 .8 Not Available [facility] ([facility]) [address] [facility] [place], [address], 07/23/2016 07:14:20 07/22/20 16 07/23/2016 CBC RBC 3.88 x10e6 /uL 3.77-5 .28 Not Available [facility] ([facility]) [address] [facility] [place], [address], 07/23/2016 07:14:20 07/22/20 16 07/23/2016 CBC hemoglobin 12.0 g/dL 11.1-1 5.9 Not Available [facility] ([facility]) [address] [facility] [place], [address], 07/23/2016 07:14:20 07/22/20 16 07/23/2016 CBC hematocrit 36.7 % 34.0-4 6.6 Not Available [facility] ([facility]) [address] [facility] [place], [address], 07/23/2016 07:14:20 07/22/20 16 07/23/2016 CBC MCV 95 fL 79-97 Not Available [facility] ([facility]) [address] [facility], [place], [address], 07/23/2016 07:14:20 07/22/20 16 07/23/2016 CBC MCH 30.9 pg 26.6-3 3.0 Not Available [facility] ([facility]) [address] [facility], [place], [address], 07/23/2016 07:14:20 07/22/20 16 07/23/2016 CBC MCHC 32.7 g/dL 31.5-3 5.7 Not Available [facility] ([facility]) [address] [facility], [place], [address], 07/23/2016 07:14:20 07/22/20 16 07/23/2016 CBC RDW 13.6 % 12.3-1 5.4 Not Available [facility] ([facility]) [address] [facility], [place], [address], 07/23/2016 07:14:20 07/22/20 16 07/23/2016 CBC platelets 225 x10e3 /uL 150-37 9 Not Available [facility] ([facility]) [address] [facility], [place], [address], 07/23/2016 07:14:20 07/22/20 16 07/23/2016 CBC neutrophils 76 % Not Avai lable [facility] ([facility]) [address] [facility], [place], [address], 07/23/2016 07:14:20 07/22/20 16 07/23/2016 CBC lymphs 14 % Not Available [facility] ([facility]) [address] [facility], [place], [address], 07/23/2016 07:14:20 07/22/20 16 07/23/2016 CBC monocytes 7 % Not Availa ble [facility] ([facility]) [address] [facility], [place], [address], 07/23/2016 07:14:20 07/22/20 16 07/23/2016 CBC eos 2 % Not Available [facility] ([facility]) [address] [facility] [place], [address], 07/23/2016 07:14:20 07/22/20 16 07/23/2016 CBC basos 1 % Not Available [facility] ([facility]) [address] [place], [address], 07/23/2016 07:14:20 07/22/20 16 07/23/2016 CBC immature cells PHYSICIAN ANESTHESIOLOGIST Not Available [facility] ([facility]) [address] [place], [address], 07/23/2016 07:14:20 07/22/20 16 07/23/2016 CBC neutrophils (absolute) 5.0 x10e3 /uL 1.4-7. 0 Not Available [facility] ([facility]) [address] [place], [address], 07/23/2016 07:14:20 07/22/20 16 07/23/2016 CBC lymphs (absolute) 0.9 x10e3 /uL 0.7-3. 1 Not Available [facility] ([facility]) [address] [place], [address], 07/23/2016 07:14:20 07/22/20 16 07/23/2016 CBC monocytes(ab solute) 0.4 x10e3 /uL 0.1-0. 9 Not Available [facility] ([facility]) [address] [place], [address], 07/23/2016 07:14:20 07/22/20 16 07/23/2016 CBC eos (absolute) 0.1 x10e3 /uL 0.0-0. 4 Not Available [facility] ([facility]) [address] [facility], [address], 07/23/2016 07:14:20 07/22/20 16 07/23/2016 CBC baso (absolute) 0.1 x10e3 /uL 0.0-0. 2 Not Available [facility] ([facility]) [address], [place], [address], 07/23/2016 07:14:20 07/22/20 16 07/23/2016 CBC immature granulocytes 0 % Not Available [facility] ([facility]) [address] [place], [address], 07/23/2016 07:14:20 07/22/20 16 07/23/2016 CBC immature grans (abs) 0.0 x10e3 /uL 0.0-0. 1 Not Available [facility] ([facility]) [address] [facility], [place], [address], 07/23/2016 07:14:20 07/22/20 16 07/23/2016 CBC NRBC PHYSICIAN ANESTHESIOLOGIST Not Available [facility] ([facility]) [address] [facility] [place], [address], 07/23/2016 07:14:20 07/22/20 16 07/23/2016 CBC hematology comments: PHYSICIAN ANESTHESIOLOGIST Not Available [facility] ([facility]) [address] [facility], [place], [address], 07/23/2016 07:14:20 07/22/20 16 07/23/2016 CMP, serum or plasm a glucose, serum 75 mg/dL 65-99 Not Available [facility] ([facility]) [address] [facility] [place], [address], 07/23/2016 07:14:21 07/22/20 16 07/23/2016 CMP, serum or plasm a BUN 7 mg/dL 6-24 Not Available [facility] ([facility]) [address] [facility] [place], [address], 07/23/2016 07:14:21 07/22/20 16 07/23/2016 CMP, serum or plasm a creatinine, serum 0.58 mg/dL 0.57-1 .00 Not Available [facility] ([facility]) [address] [place], [address], 07/23/2016 07:14:21 07/22/20 16 07/23/2016 CMP, serum or plasm a eGFR if nonafricn AM 103 mL/mi n/1.7 3 >59 Not Available [facility] ([facility]) [address] [place], [address], 07/23/2016 07:14:21 07/22/20 16 07/23/2016 CMP, serum or plasm a eGFR if africn AM 118 mL/mi n/1.7 3 >59 Not Available [facility] ([facility]) [address] [place], [address], 07/23/2016 07:14:21 07/22/20 16 07/23/2016 CMP, serum or plasm a BUN/creatini ne ratio 12 9-23 Not Available [facility] ([facility]) [address] [place], [address], 07/23/2016 07:14:21 07/22/20 16 07/23/2016 CMP, serum or plasm a sodium, serum 140 mmol/ L 136-14 4 Not Available [facility] ([facility]) [address] [place], [address], 07/23/2016 07:14:21 07/22/20 16 07/23/2016 CMP, serum or plasm a potassium, serum 4.5 mmol/ L 3.5-5. 2 Not Available [facility] ([facility]) [address] [place], [address], 07/23/2016 07:14:21 07/22/20 16 07/23/2016 CMP, serum or plasm a chloride, serum 94 mmol/ L 97-106 below low normal Not Available [facility] ([facility]) [address] [facility] [place], [address], 07/23/2016 07:14:21 07/22/20 16 07/23/2016 CMP, serum or plasm a carbon dioxide, total 30 mmol/ L 18-29 above high normal Not Available [facility] ([facility]) [address] [facility] [place], [address], 07/23/2016 07:14:21 07/22/20 16 07/23/2016 CMP, serum or plasm a calcium, serum 9.5 mg/dL 8.7-10 .2 Not Available [facility] ([facility]) [address] [facility] [place], [address], 07/23/2016 07:14:21 07/22/20 16 07/23/2016 CMP, serum or plasm a protein, total, serum 6.8 g/dL 6.0-8. 5 Not Available [facility] ([facility]) [address] [facility] [place], [address], 07/23/2016 07:14:21 07/22/20 16 07/23/2016 CMP, serum or plasm a albumin, serum 4.5 g/dL 3.5-5. 5 Not Available [facility] ([facility]) [address] [facility] [place], [address], 07/23/2016 07:14:21 07/22/20 16 07/23/2016 CMP, serum or plasm a globulin, total 2.3 g/dL 1.5-4. 5 Not Available [facility] ([facility]) [address] [facility] [place], [address], 07/23/2016 07:14:21 07/22/20 16 07/23/2016 CMP, serum or plasm a A/G ratio 2.0 1.1-2. 5 Not Available [facility] ([place] [facility]) [address] [facility] [place], [address], 07/23/2016 07:14:21 07/22/20 16 07/23/2016 CMP, serum or plasm a bilirubin, total 0.3 mg/dL 0.0-1. 2 Not Available [facility] ([facility]) [address] [facility] [place], [address], 07/23/2016 07:14:21 07/22/20 16 07/23/2016 CMP, serum or plasm a alkaline phosphatase, S 35 IU/L 39-117 below low normal Not Available [facility] ([facility]) [address] [place], [address], 07/23/2016 07:14:21 07/22/20 16 07/23/2016 CMP, serum or plasm a AST (SGOT) 17 IU/L 0-40 Not Available [facility] ([facility]) [address] [facility] [place], [address], 07/23/2016 07:14:21 07/22/20 16 07/23/2016 CMP, serum or plasm a ALT (SGPT) 14 IU/L 0-32 Not Available [facility] ([facility]) [address] [facility] [place], [address], 07/23/2016 07:14:21 07/22/20 16 07/23/2016 urina lysis , compl ete specific gravity 1.007 1.005- 1.030 Not Available [facility] ([facility]) [address] [facility] [place], [address], 07/23/2016 07:14:21 07/22/20 16 07/23/2016 urina lysis , compl ete pH 7.5 5.0-7. 5 Not Available [facility] ([facility]) [address] [facility] [place], [address], 07/23/2016 07:14:21 07/22/20 16 07/23/2016 urina lysis , compl ete urine-color YELLOW yellow Not Available [facility] ([facility]) [address] [facility], [place], [address], 07/23/2016 07:14:21 07/22/20 16 07/23/2016 urina lysis , compl ete appearance CLEAR clear Not Available [facility] ([facility]) [address] [facility], [place], [address], 07/23/2016 07:14:21 07/22/20 16 07/23/2016 urina lysis , compl ete WBC esterase NEGATI VE negati ve Not Available [facility] ([facility]) [address] [facility], [place], [address], 07/23/2016 07:14:21 07/22/20 16 07/23/2016 urina lysis , compl ete protein NEGATI VE negati ve/tra ce Not Available [facility] ([facility]) [address] [facility], [place], [address], 07/23/2016 07:14:21 07/22/20 16 07/23/2016 urina lysis , compl ete glucose NEGATI VE negati ve Not Available [facility] ([facility]) [address] [facility], [place], [address], 07/23/2016 07:14:21 07/22/20 16 07/23/2016 urina lysis , compl ete ketones NEGATI VE negati ve Not Available [facility] ([facility]) [address] [facility], [place], [address], 07/23/2016 07:14:21 07/22/20 16 07/23/2016 urina lysis , compl ete occult blood NEGATI VE negati ve Not Available [facility] ([facility]) [address] [facility], [place], [address], 07/23/2016 07:14:21 07/22/20 16 07/23/2016 urina lysis , compl ete bilirubin NEGATI VE negati ve Not Available [facility] ([facility]) [address] [place], [address], 07/23/2016 07:14:21 07/22/20 16 07/23/2016 urina lysis , compl ete urobilinogen ,semi-qn 0.2 mg/dL 0.2-1. 0 Not Available [facility] ([facility]) [address] [place], [address], 07/23/2016 07:14:21 07/22/20 16 07/23/2016 urina lysis , compl ete nitrite, urine NEGATI VE negati ve Not Available [facility] ([facility]) [address] [place], [address], 07/23/2016 07:14:21 07/22/20 16 07/23/2016 urina lysis , compl ete microscopic examination COMMEN T MICRO SCOPI C NOT INDIC ATED AND NOT PERFO RMED. Not Available [facility] ([facility]) [address] [place], [address], 07/23/2016 07:14:21 07/14/20 20 07/15/2020 HbA1c (hemo globi n A1c), blood hemoglobin A1C 6.9 % 4.8-5. 6 above high normal Predi abete s: 5.7 - 6.4 Diabe betito: >6.4 Glyce dhiraj contr ol for adult s with diabe betito: <7.0 Not Available [facility] ([facility]) [address] [place], [address], 07/15/2020 07:37:11 06/08/20 24 06/09/2024 LIPID PANEL cholesterol, total 217 mg/dL 100-19 9 above high normal Not Available [facility] ([facility]) [address] [place], [address], 06/09/2024 15:12:06 06/08/20 24 06/09/2024 LIPID PANEL triglyceride s 65 mg/dL 0-149 Not Available [facility] ([facility]) [address] [place], [address], 06/09/2024 15:12:06 06/08/20 24 06/09/2024 LIPID PANEL HDL cholesterol 71 mg/dL >39 Not Available [facility]) [address] [facility], [place], [address], 06/09/2024 15:12:06 06/08/20 24 06/09/2024 LIPID PANEL VLDL cholesterol amilcar 11 mg/dL 5-40 Not Available [facility] ([facility]) [address] [facility], [place], [address], 06/09/2024 15:12:06 06/08/20 24 06/09/2024 LIPID PANEL LDL chol calc ([facility]) 135 mg/dL 0-99 above high normal Not Available [facility] ([facility]) [address] [facility], [place], [address], 06/09/2024 15:12:06 06/08/20 24 06/09/2024 COMP. METAB OLIC PANEL (14) glucose - mg/dL Test not perfo rmed. Serum was in conta ct with cells when recei desean which will make the resul t inacc urate . Not Available [facility] ([facility]) [address] [facility], [place], [address], 06/09/2024 15:12:06 06/08/20 24 06/09/2024 COMP. METAB OLIC PANEL (14) BUN 13 mg/dL 8-27 Not Available [facility] ([facility]) [address] [facility] [place], [address], 06/09/2024 15:12:06 06/08/20 24 06/09/2024 COMP. METAB OLIC PANEL (14) creatinine 0.57 mg/dL 0.57-1 .00 Not Available [facility] ([facility]) [address] [place], [address], 06/09/2024 15:12:06 06/08/20 24 06/09/2024 COMP. METAB OLIC PANEL (14) eGFR 101 mL/mi n/1.7 3 >59 Not Available [facility] ([facility]) [address] [facility], [place], [address], 06/09/2024 15:12:06 06/08/20 24 06/09/2024 COMP. METAB OLIC PANEL (14) BUN/creatini ne ratio 23 12-28 Not Available [facility] ([facility]) [address] [facility], [place], [address], 06/09/2024 15:12:06 06/08/20 24 06/09/2024 COMP. METAB OLIC PANEL (14) sodium 137 mmol/ L 134-14 4 Not Available [facility] ([facility]) [address] [facility], [place], [address], 06/09/2024 15:12:06 06/08/20 24 06/09/2024 COMP. METAB OLIC PANEL (14) potassium - mmol/ L Test not perfo rmed. Serum was in conta ct with cells when recei desean which will make the resul t inacc urate . Not Available [facility] ([facility]) [address] [facility], [place], [address], 06/09/2024 15:12:06 06/08/20 24 06/09/2024 COMP. METAB OLIC PANEL (14) chloride 92 mmol/ L 96-106 below low normal Not Available [facility] ([facility]) [address] [facility] [place], [address], 06/09/2024 15:12:06 06/08/20 24 06/09/2024 COMP. METAB OLIC PANEL (14) carbon dioxide, total 26 mmol/ L 20-29 Not Available [facility] ([facility]) [address] [place], [address], 06/09/2024 15:12:06 06/08/20 24 06/09/2024 COMP. METAB OLIC PANEL (14) calcium 9.4 mg/dL 8.7-10 .3 Not Available [facility] ([facility]) [address] [facility] [place], [address], 06/09/2024 15:12:06 06/08/20 24 06/09/2024 COMP. METAB OLIC PANEL (14) protein, total 7.0 g/dL 6.0-8. 5 Not Available [facility] ([facility]) [address] [facility], [place], [address], 06/09/2024 15:12:06 06/08/20 24 06/09/2024 COMP. METAB OLIC PANEL (14) albumin 4.3 g/dL 3.9-4. 9 Not Available [facility] ([facility]) [address] [facility] [place], [address], 06/09/2024 15:12:06 06/08/20 24 06/09/2024 COMP. METAB OLIC PANEL (14) globulin, total 2.7 g/dL 1.5-4. 5 Not Available [facility] ([facility]) [address] [facility] [place], [address], 06/09/2024 15:12:06 06/08/20 24 06/09/2024 COMP. METAB OLIC PANEL (14) bilirubin, total 0.2 mg/dL 0.0-1. 2 Not Available [facility] ([facility]) [address] [facility], [place], [address], 06/09/2024 15:12:06 06/08/20 24 06/09/2024 COMP. METAB OLIC PANEL (14) alkaline phosphatase 61 IU/L 44-121 Not Available [facility] ([facility]) [address] [facility], [place], [address], 06/09/2024 15:12:06 06/08/20 24 06/09/2024 COMP. METAB OLIC PANEL (14) AST (SGOT) 24 IU/L 0-40 Not Available [facility] ([facility]) [address] [facility], [place], [address], 06/09/2024 15:12:06 06/08/20 24 06/09/2024 COMP. METAB OLIC PANEL (14) ALT (SGPT) 14 IU/L 0-32 Not Available [facility] ([facility]) [address] [facility], [place], [address], 06/09/2024 15:12:06 06/08/20 24 06/09/2024 PREAL BUMIN prealbumin 11 mg/dL 10-36 Not Available [facility] ([facility]) [address] [facility], [place], [address], 06/09/2024 15:12:07 06/08/20 24 06/09/2024 CBC, PLATE LET, NO DIFFE RENTI AL WBC 4.9 x10e3 /uL 3.4-10 .8 Not Available [facility] ([facility]) [address] [facility], [place], [address], 06/09/2024 15:12:08 06/08/20 24 06/09/2024 CBC, PLATE LET, NO DIFFE RENTI AL RBC 4.20 x10e6 /uL 3.77-5 .28 Not Available [facility] ([facility]) [address] [facility], [place], [address], 06/09/2024 15:12:08 06/08/20 24 06/09/2024 CBC, PLATE LET, NO DIFFE RENTI AL hemoglobin 12.3 g/dL 11.1-1 5.9 Not Available [facility] ([facility]) [address] [facility], [place], [address], 06/09/2024 15:12:08 06/08/20 24 06/09/2024 CBC, PLATE LET, NO DIFFE RENTI AL hematocrit 39.9 % 34.0-4 6.6 Not Available [facility] ([facility]) [address] [facility], [place], [address], 06/09/2024 15:12:08 06/08/20 24 06/09/2024 CBC, PLATE LET, NO DIFFE RENTI AL MCV 95 fL 79-97 Not Available [facility] ([facility]) [address] [facility], [place], [address], 06/09/2024 15:12:08 06/08/20 24 06/09/2024 CBC, PLATE LET, NO DIFFE RENTI AL MCH 29.3 pg 26.6-3 3.0 Not Available [facility] ([facility]) [address] [facility], [place], [address], 06/09/2024 15:12:08 06/08/20 24 06/09/2024 CBC, PLATE LET, NO DIFFE RENTI AL MCHC 30.8 g/dL 31.5-3 5.7 below low normal Not Available [facility] ([facility]) [address] [facility], [place], [address], 06/09/2024 15:12:08 06/08/20 24 06/09/2024 CBC, PLATE LET, NO DIFFE RENTI AL RDW 12.4 % 11.7-1 5.4 Not Available [facility] ([facility]) [address] [facility], [place], [address], 06/09/2024 15:12:08 06/08/20 24 06/09/2024 CBC, PLATE LET, NO DIFFE RENTI AL platelets 230 x10e3 /uL 150-45 0 Not Available [facility] ([facility]) [address] [facility], [place], [address], 06/09/2024 15:12:08 08/15/20 24 08/15/2024 COLOG UARD cologuard result reportable POSITI VE negati ve abnormal POSIT MARGIE TEST RESUL T. A posit margie Colog uard resul t shoul d be follo wed with a colon oscop y or visua l exami natio n of the colon . The chema l value (refe rence range ) for this assay is negat margie. TEST DESCR IPTIO N: [place] site algor ithmi c joseph sis of stool DNA-b iodarshan crocker with hemog lobin immun oassa y. Quant itati ve value s of indiv idual bioma rkers are not repor table and are not assoc iated with indiv idual bioma rker resul t refer ence range s. Colog uard is inten ded for color ectal cance r scree khoi of adult s of eithe r sex, 45 years or older , who are at [facility] for color ectal cance r (CRC) . Colog uard has been appro desean for use by the [place]. FDA. The perfo rmanc e of Colog uard was estab lishe d in a cross secti onal study of [facility] adult s aged 50-84 . Colog uard perfo rmanc e in patie nts ages 45 to 49 years was estim ated by sub-g roup joseph sis of near- age group s. Colon oscop ies perfo rmed for a posit margie resul t may find as the most clini ashlyn signi fican t lesio n: color ectal cance r [4.0% ], advan rut adeno ma (incl uding sessi le mary lina polyp s great er than or equal to 1cm diame ter) [20%] or non- advan rut adeno ma [31%] ; or no color ectal neopl tyrell [45%] . These estim ates are deriv ed from a prosp ectiv e cross -sect ional scree khoi study of 10,00 0 indiv idual s at [facility] risk for color ectal cance r who were scree kelley with both Colog uard and colon oscop y. (Arnie Arce al, N Engl J Med 2014; 370(1 4):12 86-12 97.) Colog uard may produ ce a false negat margie or false posit margie resul t (no color ectal cance r or preca ncero us polyp prese nt at colon oscop y follo w up). A negat margie Colog uard test resul t does not guara ntee the absen ce of CRC or advan rut adeno ma (pre- cance r). The curre nt Colog uard scree khoi inter juan [place] is every 3 years . (Amer ican Cance r Socie ty and U.S. Multi -Soci ety Task Force ). Colog uard perfo rmanc e data in a 10,00 0 patie nt pivot al study using colon oscop y as the refer ence metho d can be acces sed at the follo wing locat ion: www.e xactl abs.c om/re see . Addit ional descr iptio n of the Colog uard test proce ss, warni ngs and preca ution s can be found at www.c ologu elisa.c om. Not Available [facility] (Cologuard Orders Only) [address], [place], [address], 08/22/2024 17:30:49 09/01/20 24 09/02/2024 LIPID PANEL cholesterol, total 189 mg/dL 100-19 9 Not Available [facility] ([facility]) [address] [place], [address], 09/02/2024 08:28:50 09/01/20 24 09/02/2024 LIPID PANEL triglyceride s 71 mg/dL 0-149 Not Available [facility] ([facility]) [address] [facility], [place], [address], 09/02/2024 08:28:50 09/01/20 24 09/02/2024 LIPID PANEL HDL cholesterol 71 mg/dL >39 Not Available [facility] ([facility]) [address] [facility], [place], [address], 09/02/2024 08:28:50 09/01/20 24 09/02/2024 LIPID PANEL VLDL cholesterol amilcar 13 mg/dL 5-40 Not Available [facility] ([facility]) [address] [facility], [place], [address], 09/02/2024 08:28:50 09/01/20 24 09/02/2024 LIPID PANEL LDL chol calc ([facility]) 105 mg/dL 0-99 above high normal Not Available [facility] ([facility]) [address] [facility] [place], [address], 09/02/2024 08:28:50 09/01/20 24 09/02/2024 COMP. METAB OLIC PANEL (14) glucose 73 mg/dL 70-99 Not Available [facility] ([facility]) [address] [facility] [place], [address], 09/02/2024 08:28:52 09/01/20 24 09/02/2024 COMP. METAB OLIC PANEL (14) BUN 14 mg/dL 8-27 Not Available [facility] ([facility]) [address] [facility] [place], [address], 09/02/2024 08:28:52 09/01/20 24 09/02/2024 COMP. METAB OLIC PANEL (14) creatinine 0.46 mg/dL 0.57-1 .00 below low normal Not Available [facility] ([facility]) [address] [facility] [place], [address], 09/02/2024 08:28:52 09/01/20 24 09/02/2024 COMP. METAB OLIC PANEL (14) eGFR 106 mL/mi n/1.7 3 >59 Not Available [facility] ([facility]) [address] [facility] [place], [address], 09/02/2024 08:28:52 09/01/20 24 09/02/2024 COMP. METAB OLIC PANEL (14) BUN/creatini ne ratio 30 12-28 above high normal Not Available [facility] ([facility]) [address] [facility] [place], [address], 09/02/2024 08:28:52 09/01/20 24 09/02/2024 COMP. METAB OLIC PANEL (14) sodium 138 mmol/ L 134-14 4 Not Available [facility] ([facility]) [address] [facility] [place], [address], 09/02/2024 08:28:52 09/01/20 24 09/02/2024 COMP. METAB OLIC PANEL (14) potassium 4.0 mmol/ L 3.5-5. 2 Not Available [facility] ([facility]) [address] [facility], [place], [address], 09/02/2024 08:28:52 09/01/20 24 09/02/2024 COMP. METAB OLIC PANEL (14) chloride 94 mmol/ L 96-106 below low normal Not Available [facility] ([facility]) [address] [facility], [place], [address], 09/02/2024 08:28:52 09/01/20 24 09/02/2024 COMP. METAB OLIC PANEL (14) carbon dioxide, total 28 mmol/ L 20-29 Not Available [facility] ([facility]) [address] [facility] [place], [address], 09/02/2024 08:28:52 09/01/20 24 09/02/2024 COMP. METAB OLIC PANEL (14) calcium 9.2 mg/dL 8.7-10 .3 Not Available [facility] ([facility]) [address] [facility] [place], [address], 09/02/2024 08:28:52 09/01/20 24 09/02/2024 COMP. METAB OLIC PANEL (14) protein, total 6.3 g/dL 6.0-8. 5 Not Available [facility] ([facility]) [address] [facility] [place], [address], 09/02/2024 08:28:52 09/01/20 24 09/02/2024 COMP. METAB OLIC PANEL (14) albumin 3.8 g/dL 3.9-4. 9 below low normal Not Available [facility] ([facility]) [address] [facility] [place], [address], 09/02/2024 08:28:52 09/01/20 24 09/02/2024 COMP. METAB OLIC PANEL (14) globulin, total 2.5 g/dL 1.5-4. 5 Not Available [facility] ([facility]) [address] [facility] [place], [address], 09/02/2024 08:28:52 09/01/20 24 09/02/2024 COMP. METAB OLIC PANEL (14) bilirubin, total 0.2 mg/dL 0.0-1. 2 Not Available [facility] ([facility]) [address] [facility] [place], [address], 09/02/2024 08:28:52 09/01/20 24 09/02/2024 COMP. METAB OLIC PANEL (14) alkaline phosphatase 72 IU/L 44-121 Not Available [facility] ([facility]) [address] [facility] [place], [address], 09/02/2024 08:28:52 09/01/20 24 09/02/2024 COMP. METAB OLIC PANEL (14) AST (SGOT) 25 IU/L 0-40 Not Available [facility] ([facility]) [address] [facility] [place], [address], 09/02/2024 08:28:52 09/01/20 24 09/02/2024 COMP. METAB OLIC PANEL (14) ALT (SGPT) 16 IU/L 0-32 Not Available [facility] ([facility]) [address] [facility] [place], [address], 09/02/2024 08:28:52 09/01/20 24 09/02/2024 VITAM IN B12 AND FOLAT E vitamin B12 335 pg/mL 232-12 45 Not Available [facility] ([facility]) [address] [facility] [place], [address], 09/02/2024 08:28:53 09/01/20 24 09/02/2024 VITAM IN B12 AND FOLAT E folate (folic acid), serum 12.1 NG/mL >3.0 A serum folat e krystian ntrat ion of less than 3.1 ng/mL is consi dered to repre sent clini amilcar defic iency . Not Available [facility] ([facility]) [address] [facility] [place], [address], 09/02/2024 08:28:53 09/01/20 24 09/02/2024 TSH TSH 4.810 uIU/m L 0.450- 4.500 above high normal Not Available [facility] ([facility]) [address] [place], [address], 09/02/2024 08:28:55 09/01/20 24 09/01/2024 CBC WITH DIFFE RENTI AL/PL ATELE T WBC 5.9 x10e3 /uL 3.4-10 .8 Not Available [facility] ([facility]) [address] [place], [address], 09/02/2024 08:28:56 09/01/20 24 09/01/2024 CBC WITH DIFFE RENTI AL/PL ATELE T RBC 3.70 x10e6 /uL 3.77-5 .28 below low normal Not Available [facility] ([facility]) [address] [place], [address], 09/02/2024 08:28:56 09/01/20 24 09/01/2024 CBC WITH DIFFE RENTI AL/PL ATELE T hemoglobin 10.7 g/dL 11.1-1 5.9 below low normal Not Available [facility] ([facility]) [address] [place], [address], 09/02/2024 08:28:56 09/01/20 24 09/01/2024 CBC WITH DIFFE RENTI AL/PL ATELE T hematocrit 34.9 % 34.0-4 6.6 Not Available [facility] ([facility]) [address] [facility], [place], [address], 09/02/2024 08:28:56 09/01/20 24 09/01/2024 CBC WITH DIFFE RENTI AL/PL ATELE T MCV 94 fL 79-97 Not Available [facility] ([facility]) [address] [facility], [place], [address], 09/02/2024 08:28:56 09/01/20 24 09/01/2024 CBC WITH DIFFE RENTI AL/PL ATELE T MCH 28.9 pg 26.6-3 3.0 Not Available [facility] ([facility]) [address] [facility], [place], [address], 09/02/2024 08:28:56 09/01/20 24 09/01/2024 CBC WITH DIFFE RENTI AL/PL ATELE T MCHC 30.7 g/dL 31.5-3 5.7 below low normal Not Available [facility] ([facility]) [address] [facility], [place], [address], 09/02/2024 08:28:56 09/01/20 24 09/01/2024 CBC WITH DIFFE RENTI AL/PL ATELE T RDW 12.0 % 11.7-1 5.4 Not Available [facility] ([facility]) [address] [place], [address], 09/02/2024 08:28:56 09/01/20 24 09/01/2024 CBC WITH DIFFE RENTI AL/PL ATELE T platelets 214 x10e3 /uL 150-45 0 Not Available [facility] ([facility]) [address] [place], [address], 09/02/2024 08:28:56 09/01/20 24 09/01/2024 CBC WITH DIFFE RENTI AL/PL ATELE T neutrophils 82 % notest ab. Not Available [facility] ([facility]) [address] [facility], [place], [address], 09/02/2024 08:28:56 09/01/20 24 09/01/2024 CBC WITH DIFFE RENTI AL/PL ATELE T lymphs 8 % notest ab. Not Available [facility] ([facility]) [address] [facility], [place], [address], 09/02/2024 08:28:56 09/01/20 24 09/01/2024 CBC WITH DIFFE RENTI AL/PL ATELE T monocytes 8 % notest ab. Not Available [facility] ([facility]) [address] [facility], [place], [address], 09/02/2024 08:28:56 09/01/20 24 09/01/2024 CBC WITH DIFFE RENTI AL/PL ATELE T eos 1 % notest ab. Not Available [facility] ([facility]) [address] [facility], [place], [address], 09/02/2024 08:28:56 09/01/20 24 09/01/2024 CBC WITH DIFFE RENTI AL/PL ATELE T basos 1 % notest ab. Not Available [facility] ([facility]) [address] [facility], [place], [address], 09/02/2024 08:28:56 09/01/20 24 09/01/2024 CBC WITH DIFFE RENTI AL/PL ATELE T neutrophils (absolute) 4.9 x10e3 /uL 1.4-7. 0 Not Available [facility] ([facility]) [address] [facility], [place], [address], 09/02/2024 08:28:56 09/01/20 24 09/01/2024 CBC WITH DIFFE RENTI AL/PL ATELE T lymphs (absolute) 0.5 x10e3 /uL 0.7-3. 1 below low normal Not Available [facility] ([facility]) [address] [facility], [place], [address], 09/02/2024 08:28:56 09/01/20 24 09/01/2024 CBC WITH DIFFE RENTI AL/PL ATELE T monocytes(ab solute) 0.5 x10e3 /uL 0.1-0. 9 Not Available [facility] ([facility]) [address] [facility], [place], [address], 09/02/2024 08:28:56 09/01/20 24 09/01/2024 CBC WITH DIFFE RENTI AL/PL ATELE T eos (absolute) 0.1 x10e3 /uL 0.0-0. 4 Not Available [facility] ([facility]) [address] [place], [address], 09/02/2024 08:28:56 09/01/20 24 09/01/2024 CBC WITH DIFFE RENTI AL/PL ATELE T baso (absolute) 0.1 x10e3 /uL 0.0-0. 2 Not Available [facility] ([facility]) [address] [place], [address], 09/02/2024 08:28:56 09/01/20 24 09/01/2024 CBC WITH DIFFE RENTI AL/PL ATELE T immature granulocytes 0 % notest ab. Not Available [facility] ([facility]) [address] [place], [address], 09/02/2024 08:28:56 09/01/20 24 09/01/2024 CBC WITH DIFFE RENTI AL/PL ATELE T immature grans (abs) 0.0 x10e3 /uL 0.0-0. 1 Not Available [facility] ([facility]) [address] [place], [address], 09/02/2024 08:28:56 09/01/20 24 09/02/2024 TRIIO DOTHY MONO E (T3), FREE triiodothyro nine (T3), free 2.0 pg/mL 2.0-4. 4 Not Available [facility] ([facility]) [address] [place], [address], 09/02/2024 08:28:57 09/01/20 24 09/02/2024 T4,FR EE(DI RECT) T4,free(dire ct) 1.07 NG/dL 0.82-1 .77 Not Available [facility] ([facility]) [address] [facility], [place], [address], 09/02/2024 08:28:59 09/01/20 24 09/02/2024 VITAM IN D, 25-HY DROXY vitamin D, 25-hydroxy 33.9 NG/mL 30.0-1 00.0 Vitam in D defic iency has been defin ed by the Insti tute of Medic ine and an Endoc rine Socie ty pract ice guide line as a level of serum 25-OH vitam in D less than 20 ng/mL (1,2) . The Endoc rine Socie ty went on to furth er defin e vitam in D insuf ficie ncy as a level betwe en 21 and 29 ng/mL (2). 1. IOM (Inst itute of Medic ine). 2010. Dieta ry refer ence intradhames es for calci um and D. Alex cabrera [place]: The Natio nal [employer] de[employer] . 2. Maikol schmitz MF, [place], Dilma off-F errar i GILLETTE, et al. Evalu ation , treat ment, and preve ntion of vitam in D defic iency : an Endoc rine Socie ty clini amilcar pract ice guide line. JCEM. 2010; 96(7) :1911 -30. Not Available [facility] ([facility]) [address] [place], [address], 09/02/2024 08:29:00 05/21/20 16 05/21/2016 XR, chest , 2 view No observ ation record ed. mringor [facility] (Imaging) [address] [place], [address], 05/22/2016 11:15:48 09/03/20 16 pulmo nary disea se speci alist refer ral No observ ation record ed. [email or web address] [facility] Add On Lab Orders [address] [place], [address], 09/04/2016 10:21:09 Result Notes None recorded. 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 Soham Daly MD Attn: Esvin varghese,[address] [facility], [place], [address], [place] - [facility] 6 14:21:43 Trying to give up smoking 763640919 Active Soham Daly MD Attn: Esvin varghese,[address] [facility], [place], [address], [place] [facility] 6 13:28:00 Acute bronchitis 48423380 Active Soham Daly MD Attn: Esvin varghese,[address] [facility], [place], [address], [place] - [facility] 6 14:21:43 Chronic obstructive pulmonary disease 23955973 Active Soham Daly MD Attn: Esvin varghese,[address], [place], [address], [place] - [facility] 6 14:21:43 Problem Notes None recorded. 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 Medical Equipment None Reported. Allergies No known drug allergies Medications Name Sig Start Date Stop Date Status Note LastModified by Organization Details LastModified Time Prescript ion - New 01/18 completed Not Available Not Available Not Available amoxicill in 500 mg capsule 01/18 completed Not Available Not Available Not Available Qvar 80 mcg/actua tion Metered Aerosol oral inhaler 01/18 completed Not Available Not Available Not Available prednison e 10 mg tablet Take 1 tablet every day by oral route for 30 days. active Not Available Not Available No t Available atorvasta tin 10 mg tablet Take 1 tablet every day by oral route. 06/08 completed Pt states she is NOT taking this Not Available Not Available Not Available azithromy amna 250 mg tablet TAKE 2 TABLETS (500 MG) BY ORAL ROUTE ONCE DAILY FOR 1 DAY THEN 1 TABLET (250 MG) BY ORAL ROUTE ONCE DAILY FOR 4 DAYS 01/18 completed Not Available Not Available Not Available pravastat in 40 mg tablet Take 1 tablet every day by oral route for 90 days. 01/18 completed pt is on Atorvast atin now Not Available Not Available Not Available cephalexi n 500 mg capsule TAKE 1 CAPSULE BY MOUTH EVERY 8 HOURS FOR 7 DAYS 03/15 completed not taking per pt report Not Available Not Available Not Available monteluka st 10 mg tablet TAKE 1 TABLET BY MOUTH ONCE DAILY 01/18 completed Not Available Not Available Not Available Vitamin D2 1,250 mcg (50,000 unit) capsule Take by oral route. active pt states she is NOT taking this. Not Available Not Available Not Available sertralin e 50 mg tablet TAKE 1 TABLET BY MOUTH ONCE DAILY 10/21 completed Not Available Not Available Not Available Ventolin HFA 90 mcg/actua tion aerosol inhaler INHALE 2 PUFFS BY MOUTH EVERY 4 TO 6 HOURS NEEDED FOR 30 DAYS 01/18 completed Not Available Not Available Not Available Spiriva with HandiHale r 18 mcg and inhalatio n capsules Inhale 1 capsule every day by inhalati on route for 30 days. 10/21 completed Not Available Not Available Not Available Atrovent HFA 17 mcg/actua tion aerosol inhaler 01/18 completed Not Available Not Available Not Available Spiriva with HandiHale r 01/18 completed Not Available Not Available Not Available Symbicort 160 mcg-4.5 mcg/actua tion HFA aerosol inhaler INHALE 2 PUFFS BY MOUTH TWICE DAILY 10/21 completed Not Available Not Available Not Available Prevnar 13 (PF) 0.5 mL intramusc ular syringe 01/18 completed Not Available Not Available Not Available Shingrix (PF) 50 mcg/0.5 mL intramusc ular suspensio n, kit PHARMACI ST ADMINIST ERED IMMUNIZA TION ADMINIST ERED AT TIME OF DISPENSI NG 01/18 completed Not Available Not Available Not Available Flublok Quad (PF) 180 mcg (45 mcg x 4)/0.5 mL IM syringe PHARMACI ST ADMINIST ERED IMMUNIZA TION ADMINIST ERED AT TIME OF DISPENSI NG 01/18 completed Not Available Not Available Not Available Breztri Aerospher e 160 mcg-9mcg- 4.8mcg/ac tuation HFA aerosol inhaler Inhale 2 puffs twice a day by inhalati on route. 2023 active Not Available Not Available Not Avai lable albuterol 90 mcg-budes onide 80 mcg/actua tion HFA aerosol inhaler Inhale by inhalati on route. active Not Available Not Available No t Available Vitals Date Recorded Body height Provider Name an d Address Organization Details Last Updated DateTime 03/15/2024 157.48 cm Maddison Narayanan on, [facility] 03/15/2024 11:22:04 Date Recorded Body mass index (BMI) Body weight Provider Name and Address Organization Details Last Updated DateTime 03/15/2024 17.4 kg/m2 41493.42 g Maddison Payton [facility] 03/15/2024 11:22:12 Date Recorded Heart rate Provider Name an d Address Organization Details Last Updated DateTime 03/15/2024 70 /min Maddison Narayanan on, [facility] 03/15/2024 11:29:50 Date Recorded Oxygen saturation Oxygen saturation in Arterial blood by Pulse oximetry Inhaled oxygen flow rate Provider Name and Address Organization Details Last Updated DateTime 03/15/2024 95 % 95 % 2 L/min Maddisonchaya Payton [facility] 03/15/2024 11:29:55 Date Recorded Pain severity - 0-10 verbal numeric rating [Score] - Reported Provider Name and Address Organization Details Last Updated DateTime 03/15/2024 0 Maddison Payton [facility] 03/15/2024 11:30:01 Date Recorded Body height Provider Name an d Address Organization Details Last Updated DateTime 06/08/2024 157.48 cm Selam Perez MA [facility] 06/08/2024 11:07:58 Date Recorded Body mass index (BMI) Body weight Provider Name and Address Organization Details Last Updated DateTime 06/08/2024 16.1 kg/m2 71546.85 g Selam Perez [facility] 11:08:07 Date Recorded Heart rate Provider Name an d Address Organization Details Last Updated DateTime 06/08/2024 87 /min Selam Perez [facility] 06/08/2024 11:10:20 Date Recorded Oxygen saturation Oxygen saturation in Arterial blood by Pulse oximetry Inhaled oxygen flow rate Provider Name and Address Organization Details Last Updated DateTime 06/08/2024 98 % 98 % 3 L/min Selam Peerz [facility] 06/08/2024 11:10:38 Date Recorded Body height Provider Name an d Address Organization Details Last Updated DateTime 09/01/2024 157.48 cm Selam Perez [facility] 09/01/2024 10:05:25 Date Recorded Body mass index (BMI) Provider Name and Address Organization Details Last Updated DateTime 09/01/2024 15.9 kg/m2 Selam Perez [facility] 09/01/2024 10:05:39 Date Recorded Body weight Provider Name an d Address Organization Details Last Updated DateTime 09/01/2024 73501.9 g Selam Perez [facility] 09/01/2024 10:05:40 Date Recorded Oxygen saturation Oxygen saturation in Arterial blood by Pulse oximetry Inhaled oxygen flow rate Provider Name and Address Organization Details Last Updated DateTime 09/01/2024 90 % 90 % 3 L/min Selam Perez [facility] 09/01/2024 10:09:10 Date Recorded Heart rate Provider Name an d Address Organization Details Last Updated DateTime 09/01/2024 92 /min Selam Perez [facility] 09/01/2024 10:09:19 Date Recorded Body height Provider Name an d Address Organization Details Last Updated DateTime 10/21/2024 157.48 cm Selam Perez [facility] 10/21/2024 10:33:24 Date Recorded Body mass index (BMI) Body weight Provider Name and Address Organization Details Last Updated DateTime 10/21/2024 15.8 kg/m2 50505.66 g Selam Perez [facility] 10:35:19 Date Recorded Heart rate Provider Name an d Address Organization Details Last Updated DateTime 10/21/2024 76 /min Selam Perez [facility] 10/21/2024 10:37:16 Date Recorded Oxygen saturation Oxygen saturation in Arterial blood by Pulse oximetry Inhaled oxygen flow rate Provider Name and Address Organization Details Last Updated DateTime 10/21/2024 93 % 93 % 3 L/min Selam Perez [facility] 10/21/2024 10:37:29 Date Recorded Body temperature Body mass index (BMI) Body height Oxygen saturation Oxygen saturation in Arterial blood by Pulse oximetry Body weight Heart rate Systolic blood pressure Diastolic blood pressure Provider Name and Address Organization Details Last Updated DateTime 6 97.2 [degF] 16.8 kg/m2 162.56 cm 95 % 95 % 20590.0 5226 g 62 /min 98 mm[Hg] 60 mm[Hg] Priscilla Olson [facility] 6 12:11:19 Date Recorded Systolic blood pressure Diastolic blood pressure Provider Name and Address Organization Details Last Updated DateTime 03/15/2024 104 mm[Hg] 68 mm[Hg] Maddison Payton Storm [facility] 03/15/2024 11:29:48 Date Recorded Systolic blood pressure Diastolic blood pressure Provider Name and Address Organization Details Last Updated DateTime 06/08/2024 100 mm[Hg] 72 mm[Hg] Selam Perez [facility] 05/23 11:10:13 Date Recorded Systolic blood pressure Diastolic blood pressure Provider Name and Address Organization Details Last Updated DateTime 09/01/2024 110 mm[Hg] 82 mm[Hg] Selam Perez [facility] 08/22 10:07:44 Date Recorded Systolic blood pressure Diastolic blood pressure Provider Name and Address Organization Details Last Updated DateTime 10/21/2024 98 mm[Hg] 64 mm[Hg] Selam Perez [facility] 10/21 10:37:12 Social History Question Answer Notes LastModified by Organizat ion Details LastModified Time Tobacco Smoking Status [facility] 11:26:12 Do You Have An Advance Directive? Yes Information not available 10/12/2014 What Is Your Level Of Alcohol Consumption? Occasional Information not available 10/12/2014 Are You Blind Or Do You Have Difficulty Seeing? No Information not available 06/08/2024 What Is Your Level Of Caffeine Consumption? Heavy Information not available 10/12/2014 How Much Tobacco Do You Chew? None Information not available 10/12/2014 In The 14 Days Before Symptom Onset, Have You Had Close Contact With A Laboratory-confir med COVID-19 While That Case Was Ill? No Information not available 06/08/2024 In The 14 Days Before Symptom Onset, Have You Had Close Contact With A Person Who Is Under Investigation For COVID-19 While That Person Was Ill? No Information not available 06/08/2024 Have You Been To An Area Known To Be High Risk For COVID-19? No Information not available 06/08/2024 Are You Currently Employed? No Information not available 10/12/2014 Are You Deaf Or Do You Have Serious Difficulty Hearing? No Information not available 06/08/2024 What Type Of Diet Are You Following? REGULAR Information not available 06/08/2024 Which Illicit Or Recreational Drugs Have You Used? None Information not available 10/12/2014 Education 12 Information no t available 10/12/2014 Are There Any Guns Present In Your Home? No Information not available 10/12/2014 Hard Of Hearing Or Deaf In One Or Both Ears? No Information not available 10/12/2014 Legally Blind In One Or Both Eyes? No Information no t available 10/12/2014 Live Alone Or With Others? With Others Information not available 10/12/2014 What Was The Date Of Your Most Recent Tobacco Screening? 10/21/2024 Information not available 10/21/2024 How Many Children Do You Have? 2 Information not available 10/12/2014 Performs Monthly Self-breast Exam? No Information no t available 10/12/2014 Do You Use Your Seat Belt Or Car Seat Routinely? Yes Information not available 06/08/2024 Seat Belts Used Routinely Yes Information not available 10/12/2014 Are You Sexually Active? No Information not available 10/12/2014 Smoke Alarm In Home Yes Information not available 10/12/2014 Do You Have Smoke And Carbon Monoxide Detectors In Your Home? Yes Information not available 06/08/2024 Are You Passively Exposed To Smoke? Yes Information no t available 10/12/2014 How Much Tobacco Do You Smoke? 1 PPD Information not available 10/12/2014 General Stress Level Medium Information not available 10/12/2014 Do You Use Any Illicit Or Recreational Drugs? No Information not available 06/08/2024 Do You Use Sunscreen Routinely? No Information not available 10/12/2014 Has Tobacco Cessation Counseling Been Provided? Yes Information not available 06/08/2024 On What Date Was Tobacco Cessation Counseling Provided? 10/21/2024 Information not available 10/21/2024 How Many Years Have You Smoked Tobacco? 25 Information not available 10/12/2014 Sex: Female Functional Status Question Answer Note LastModified by Organization D etails LastModified Time Are you able to care for yourself? Yes Information n ot available 10/12/2014 What is your exercise level? None Information not available 10/12/2014 Mental Status None recorded. Family History Relationship Description Onset Age of this Age Resolved Age Notes LastModified by Organization Details LastModified Time Father Chronic obstructive pulmonary disease [email or web address] Not available 02/21 11:35:55 Father Alcohol abuse oajao Not available 2014 11:38:31 Father Heart disease oajao Not available 2014 11:38:31 Father Myocardial infarction [email or web address] Not available 11:35:29 Father Diabetes mellitus [email or web address] Not available 02/21 11:35:41 Mother Malignant neoplasm of urinary bladder [email or web address] Not available 02/21 11:36:11 Medical History Condition Response COPD Y Cancer Y Asthma Y High Cholesterol Y Gynecological HistoryNo gynecological history recorded. Obstetrics History GPAL:G 0 P 0 0 0 0 Immunizations Vaccine Type Date Status Note Provider Nam e and Address Organization Details Recorded Time Tdap 5 completed Not Available [facility] 10/09/2019 02:40:25 Influenza, split virus, quadrivalent, preservative 7 completed CORY Garcia null, [place] - [facility] 03/15/2024 11:24:06 Influenza, recombinant, quadrivalent, PF 0 completed Maddison Payton, R[place] [facility] 03/15/2024 11:24:07 Influenza, recombinant, quadrivalent, PF 9 completed Maddison Payton, [place] [facility] 03/15/2024 11:24:07 zoster recombinant 9 completed Maddison Payton [place] [facility] 03/15/2024 11:24:07 zoster recombinant 9 completed Maddison Payton, [place] [facility] 03/15/2024 11:24:07 COVID-19, mRNA, LNP-S, PF, 100 mcg/0.5mL dose or 50 mcg/0.25mL dose 1 completed Maddison Payton [place] [facility] 03/15/2024 11:24:07 COVID-19, mRNA, LNP-S, PF, 100 mcg/0.5mL dose or 50 mcg/0.25mL dose 1 completed Maddison Payton R[place] [facility] 03/15/2024 11:24:07 COVID-19, mRNA, LNP-S, PF, 100 mcg/0.5mL dose or 50 mcg/0.25mL dose 1 completed Maddison Payton [place] [facility] 03/15/2024 11:24:07 pneumococcal polysaccharide PPV23 2 completed Maddison Payton [place] [facility] 03/15/2024 11:24:07 Influenza, split virus, quadrivalent, PF 3 completed Maddison Payton [place] [facility] 03/15/2024 11:24:07 Influenza, split virus, quadrivalent, PF 1 completed Maddison Payton [place] [facility] 03/15/2024 11:24:07 Influenza, split virus, quadrivalent, PF 2 completed Maddison Payton [place] [facility] 03/15/2024 11:24:07 Influenza, split virus, quadrivalent, PF 8 completed CORY Garcia null, [place] - [facility] 03/15/2024 11:24:07 pneumococcal polysaccharide PPV23 1 completed Soham Daly MD Attn: [address] [place], [address], [facility] 04/19/2015 11:56:55 Influenza, high-dose, trivalent, PF 4 completed Soham Daly MD Attn: Account[address] [place], [address], [facility] 04/19/2015 11:57:26 Pneumococcal conjugate PCV 13 5 completed Soham Daly MD Attn: Accounting[address] [place], [place], [address] [place] [address], [facility] 11/20/2015 12:51:26 Influenza, split virus, quadrivalent, preservative 5 completed Not Available [facility] 10/09/2019 02:49:11 Influenza, split virus, trivalent, preservative 4 completed Ashley Balderas MD Attn: Accounting[address] [place], [address], [facility] 06/08/2024 21:31:31 Past Encounters Encounter ID Performer Location Encounter Start Date Encounter Closed Date Diagnosis/Indication Diagnosis SNOMED-CT Code Diagnosis ICD10 Code Diagnosis Note [id number] December [facility] Rojas (Adult Med) [address] [place] [address] 10/12/2014 10:55:06 10/12/2014 12:10:05 Chronic obstructive pulmonary disease 59866078 Follows up with Dr. Cannon she is not sure if she needs a referral. Flu vaccine is current and Pneumovax was administer ed in ? She will need Prevnar 13 from her local pharmacist and a handwritte n script was given to the patient. General ex amination of patient [id number] Colonoscop y and WASTE SPECIALIST exam needed. Labs have been ordered and she would benefit from Prevnar 13. Last CXR was ?, she stopped in 2012. Her records from Dr. Balderas will also be useful. [id number] David (Adult Med) [address] [place] [phone] 01/18/2015 12:05:05 01/18/2015 13:36:40 Chronic obstructive pulmonary disease [id number] Pneumovax was administer ed in ? She really needs Prevnar 13 from her local pharmacist and a handwritte n script was again given to the patient. CXR findings were discussed, there are issues with her new insurance and her out of pocket expenses, I have reassured her that we will see her regardless of her insurance status. Disorder o f lipid metabolism 905856981 Low CHO, low fat diet and then repeat labs in 6 weeks. Screening for cancer 89656521 MMG as scheduled, she will reconsider the colonoscop y as previously ordered. [id number] OPAL Torres (Adult Med) [address] [place] [phone] 04/19/2015 11:37:03 04/19/2015 12:12:47 Chronic obstructive pulmonary disease 80204138 Prevnar 13 from her local pharmacist . Labs as previously ordered Tobacco use was discontinu ed in 2012, she however still smokes e-cigarett es, I have discourage d this as well [id number] OPAL Torres (Adult Med) [address] [place] [phone] 06/28/2015 10:57:15 06/28/2015 13:56:31 Influenza vaccine needed 9018485947 106 Z28.3 Disorder o f lipid metabolism 091957902 E78.9 Continue low CHO, low fat diet and start Pravastati n 40mg po daily. Side effects were discussed Repeat labs in 6 weeks Chronic ob structive pulmonary disease 98823693 J44.9 Tobacco use was discontinu ed in 2012, she however still smokes e-cigarett es, I have discourage d this as well [id number] MD David Richard (Adult Med) [address] [place] [id number] 11/20/2015 11:52:48 11/20/2015 13:25:09 Screening for cancer 69326755 Z12.9 MMG to be scheduled, she will reconsider the colonoscop y, Telephone Interviewer for Pap. Screening for malignant neoplasm of colon 050606282 Z12.11 Screening for malignant neoplasm of breast 681717257 Z12.39 Trying to give up smoking 828427549 Z72.0 She was advised to discontinu e the e-cigarett e Disorder o f lipid metabolism 404601251 E78.9 Ms. Wilson returns, she is not really sure why she is here today, the plan was start Pravastati n, obtain labs in 6 weeks and then follow up. She shoud restart her Pravastati n 40mg po daily. Labs in 6 weeks Chronic ob structive pulmonary disease 04470450 J44.9 Tobacco use was discontinu ed in 2012, she however still smokes e-cigarett es, I have discourage d this as well [id number] Soham Daly MD [facility] (Adult Med) [address] [place] [phone] 05/21/2016 11:50:22 05/21/2016 12:51:36 Disorder of lipid metabolism 724157432 E78.9 She shoud remain on the Pravastati n 40mg po daily, I have once again explained this to her as the issue appears to have been her detuctible and the cost of the medication . Chronic ob structive pulmonary disease 42811402 J44.9 Tobacco use was discontinu ed in 2012, she however still smokes e-cigarett es, I have discourage d this once again. Her pulmonolog ist, Dr. Cannon is moving to [place]. Adult [facility] th examination 236378990 Z00.00 Acute bronchitis 5527784 2 J20.9 She reports an illness 3 weeks ago, she is better somewhat. Screening for malignant neoplasm of colon 299619377 Z12.11 Refused You can't talk me into it yet [id number] Ashley Balderas MD [facility] [address] [place] [address] 03/15/2024 11:00:42 03/15/2024 12:15:12 Underweight 754694423 R63.6 Chronic ob structive pulmonary disease 42458137 J44.9 Chronic hy poxemic respiratory failure 260308510 J96.11 Anxiety 80027822 F41.9 Metastatic malignant neoplasm to colorectum 6956546233 C80.1 [id number] [facility] [address] [place] [phone] 06/08/2024 10:55:42 06/08/2024 11:57:08 Underweight 487601322 R63.6 Administra tion of influenza vaccine 71411048 Z23 Screening for cardiovascular system disease 353785357 Z13.6 Hyperlipidemia 41031989 E78.5 Chronic hy poxemic respiratory failure 736968212 J96.11 Chronic ob structive pulmonary disease 40291992 J44.9 Moderate protein-calorie malnutrition (weight for age 60-74 percent of standard) 014113185 E44.0 [id number] MD [facility] [address] [place] [phone] 09/01/2024 09:47:46 09/01/2024 10:32:43 Underweight 729603499 R63.6 Malignant tumor of colon 509355794 C18.9 Fatigue 43745975 R53.83 Chronic ob structive pulmonary disease 94128736 J44.9 Screening for cardiovascular system disease 255705860 Z13.6 Vitamin D deficiency 347 88230 E55.9 Carcinoma of colon, stage IV 423599527 C18.9 [id number] Nathan Ruffin MA [facility] [address] [place] [address] 10/21/2024 10:23:42 10/21/2024 11:29:41 Underweight 005436154 R63.6 Abdominal pain 88690083 R10.9 Health Concerns Section Related Observation LastModified by Organization Detai ls LastModified Time None Recorded Concern Status LastModified by Organization Details LastModified Time None Recorded Advance Directives Directive Y: Payers Encounter Date Sequence Insurance Name Policy Number Policy San Covered Member ID San Member ID Guarantor Name 05/21/2016 1 [place] Manfred Wilson [id number] Manfred Wilson 05/21/2016 2 [employer] Manfred Wilson [id number] Manfred Wilson 03/15/2024 2 [employer] Manfred Wilson [id number] Manfred Wilson 03/15/2024 1 [place] Manfred R Wilson [id number] Manfred Wilson 06/08/2024 2 [employer] Rothmann Wilson [id number] Manfred Wilson 06/08/2024 [place] - FQHC Manfred Wilson [id number] Manfred Wilson 09/01/2024 1 [place] Manfred R Wilson [id number] Manfred Wilson 09/01/2024 2 [employer] (MEDICARE SUPPLEMENT) Manfred R Wilson [id number] Manfred Wilson Notes Date Note Type Note Provider Name and Address Organization Details Recorded Time 03/15/2024 text/html 63-year-old metastatic colon cancer chronic hypoxic respiratory failure on 2 L oxygen anxiety dyslipidemia but she is not taking her statin overall seems to be doing fine she has been seeing a pain management doctor and getting some medical marijuana Ashley Balderas MD Attn: [address] [place], [address] 03/20/2024 14:02:34 06/08/2024 text/html 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 Breathing okay. Does have some fatigue Ashley Balderas MD Attn: Accounting, [address] [facility], [place], [address], [facility] 09/04/2024 20:18:48 OBGyn Episode No OBEpisode recorded.
--- OUTSIDE RECORDS SUMMARY | 2024-10-21 12:05 | XMS_ITS | Clinical Summary ---
Author Organization [facility] Address [facility] [place] [address] Care Team Providers Care Block Breaker Operator Name Role Phone Jack Arechiga MD Unavailable + Bryant Balderas DO Primary Care Provider [phone] Mahesh Frances MD Unavailable [phone] Gerda Correa MD Unavailable [phone] Allergies No known active allergies Medications albuterol HFA (PROVENTIL HFA,VENTOLIN HFA,PROAIR HFA) 90 mcg/actuation inhaler Inhale 2 puffs every 6 (six) hours as needed Active budesonide-form oteroL (SYMBICORT) 80-4.5 mcg/actuation inhaler Inhale 2 puffs 2 (two) times a day Active sertraline (ZOLOFT) 50 mg tablet Take 1 tablet (50 mg total) by mouth daily Active tiotropium (SPIRIVA) 18 mcg per inhalation capsule Place 1 puff (18 mcg total) into inhaler and inhale daily Active Active Problems No known active problems Social History Tobacco Use Types Packs/Day Years Used Date Smoking Tobacco: Former Cigarettes Q uit: 2013 AUDIT-C Answer Date Recorded Q1: How often do you have a drink containing alc ohol? Monthly or less 10/29/2023 Q2: How many drinks containi ng alcohol do you have on a typical day when you are drinking? 1 or 2 10/29/2023 Q3: How often do you have si x or more drinks on one occasion? Never 10/29/2023 Personal Safety Answer Date Recorded Getting School Help Needed Not on file 10/22 Comments Unknown Sex and Gender Information Value Date Recorded Sex Assigned at Not on file Legal Sex Female 4:04 PM TRAM OPERATOR Gender Identity Not on file Sexual Orientation Not on file Obstetrics History Last Filed Vital Signs Vital Sign Reading Time Taken Comments Blood Pressure 125/82 10/29/2023 9:14 AM TRAM OPERATOR Pulse 65 10/29/2023 9:14 AM TRAM OPERATOR Temperature 36.4 ??C (97.6 ??F) 10/29/2023 9:14 AM CS T Respiratory Rate - - Oxygen Saturation 91% 10/29/2023 9:14 AM TRAM OPERATOR Inhaled Oxygen Concentration - - Weight 44 kg (97 lb) 10/29/2023 9:14 AM TRAM OPERATOR Height 160 cm (5' 3 ) 10/29/2023 9:14 AM TRAM OPERATOR Body Mass Index 17.18 10/29/2023 9:14 AM TRAM OPERATOR Plan of Treatment Health Maintenance Due Date Last Done Comments Breast Cancer Screening-Mammogram 1959 Cervical Cancer Screening 1959 Colon Cancer Screening-Colonoscopy 1959 Depression Screening 1959 Fall Risk Assessment 1959 Hepatitis C Screening 1959 Osteoporosis Screening-Bone Density Scan 1959 Hepatitis B Screening 1977 Covid-19 Vaccine (4 - 2023-2 5 season) 2024 08/31/2021, 12/16/2020, 11/18/2020 Influenza Vaccine (#1) 2024 , 07/19/2022, 07/09/2021, Additional history exists Well Visit 65+ 2024 DTaP/Tdap/Td Vaccine (2 - Td or Tdap) 10/12/2024 10/12/2014 Pneumococcal vaccine 65+ (4 of 4 - PPSV23 or PCV20) 02/01/2027 02/01/2022, 05/18/2015, 09/22/2010 Zoster Vaccine Completed 09/09/2019, 07/10/2019 Insurance MEDICARE [facility] Care Teams Block Breaker Operator Relationship Specialty Start Date End Date Bryant Balderas DO [address] [place] [address] PCP - General Family Medicine 10/29/23 Jack Arechiga MD [address] [place] [address] Referring Physician Gastroenterology 10/22/23 Mahesh Frances MD [phone] [place] [address] Surgeon Colon and Rectal Surgery 10/29/23 Gerda Correa MD [address] [place] [address] Consulting Physician Surgery 02/10/24
--- OUTSIDE RECORDS SUMMARY | 2024-10-21 12:06 | XMS_ITS | Referral Summary ---
Author Organization [facility] Address [facility] [place] [address] Care Team Providers Care Polymerization Oven Operator Name Role Phone Jack Arechiga MD Unavailable + Bryant Balderas DO Primary Care Provider [phone] Mahesh Frances MD Unavailable [phone] Gerda Correa MD Unavailable [phone] Allergies No known active allergies Medications [...] on file Legal Sex Female 4:04 PM COLD ROLLING SUPERVISOR Gender Identity Not on file Sexual Orientation Not on file Last Filed Vital Signs Vital Sign Reading Time Taken Comments Blood Pressure 125/82 10/29/2023 9:14 AM COLD ROLLING SUPERVISOR Pulse 65 10/29/2023 9:14 AM COLD ROLLING SUPERVISOR Temperature 36.4 ??C (97.6 ??F) 10/29/2023 9:14 AM CS T Respiratory Rate - - Oxygen Saturation 91% 10/29/2023 9:14 AM COLD ROLLING SUPERVISOR Inhaled Oxygen Concentration - - Weight 44 kg (97 lb) 10/29/2023 9:14 AM COLD ROLLING SUPERVISOR Height 160 cm (5' 3 ) 10/29/2023 9:14 AM COLD ROLLING SUPERVISOR Body Mass Index 17.18 10/29/2023 9:14 AM COLD ROLLING SUPERVISOR Plan of Treatment Not on file Insurance * Guarantor: Manfred Wilson Account Type Relation to Patient Date of Phone Billing Address Personal/Family Self [address] [place] [phone] MEDICARE [facility] Care Teams Polymerization Oven Operator Relationship Specialty Start Date End Date Bryant Balderas DO [address] [place] [address] PCP - General Family Medicine 10/29/23 Jack Arechiga MD [address] [place] [address] Referring Physician Gastroenterology 10/22/23 Mahesh Frances MD [phone] [place] [address] Surgeon Colon and Rectal Surgery 10/29/23 Gerda Correa MD [address] [place] [address] Consulting Physician Surgery 02/10/24
--- OUTSIDE RECORDS SUMMARY | 2024-10-21 12:06 | XMS_ITS | CONTINUITY OF CARE DOCUMENT ---
Author Name [email or web address] Address Unknown Organization [facility] Address [address] [place] [address] [address] [place] [address] Phone [phone] Care Team Providers Care Digital Campaign Specialist Name Role Phone Venu Dallas MD Unavailable JOANIE MCGARRY, JUANA Hull Unavailable LANE RODRIGUEZ MD Unavailable INSURANCE PROVIDERS Payer name Policy type / Coverage type [place] red libertarian ID [employer] [id number] [place] Medicare [id number]
== END 2024-10-21 11:00 | disposition home or self-care (01) ==
PROVIDERS: PCP Nurse Practitioner Family; Visit Provider Internal Medicine
DX: R10.9 Unspecified abdominal pain (principal)
CPT/HCPCS: 36415; 80053; 85025

== ENCOUNTER 2024-10-29 10:01 | Outpatient (CLI) | payer MEDICARE, SELFPAY ==
--- NOTE | ~2024-10-29 | CT_ITS ---
EXAMINATION: CT chest abdomen pelvis w con DATE: 10/29/2024 10:24 INDICATION: Abdominal pain. TECHNIQUE: Computed tomography (CT) of the chest, abdomen, and pelvis was performed with 100 mL Omnip aque 350 intravenous contrast. Automated exposure control and iterative reconstruction technique were employed. The dose-length product was 224.20 mGy-cm. COMPARISON: CT abdomen and pelvis 10/22/2023, PET/CT 10/30/23 FINDINGS: CHEST CT: There is severe emphysema. Calcified right lung nodules and calcified right hilar lymph nodes are con sistent with old granulomatous disease. There is mild atelectasis bilaterally. There are few chronic lung nodules measuring up to 5 mm. There is a 9 mm left lower lobe nodule, new from 10/30/2023. No pleu ral effusion. The heart size is normal. There is a trace pericardial effusion. There is mild chronic anterior wedging of multiple thoracic vertebral bodies. There is mild thoracic spondylosis. ABDOMEN/PELVIS CT: There are at least 8 masses in the liver measuring up to 8.0 cm. The gallbladder is normal. Calcifica tions in the spleen are consistent with old granulomatous disease. The pancreas, adrenal glands, and right kidney are normal. There are cysts in left kidney measuring up to 4 mm. There is a 9.0 x 7.5 cm mass of the rectum. There is bilateral common iliac, external iliac, and internal iliac lymphadenopa thy. There is no free intraperitoneal fluid. There is mild lumbar spondylosis. IMPRESSION: 1. Worsened rectal mass, consistent with primary malignancy. 2. Worsened pelvic lymphadenopathy and liver masses, consistent with metastatic disease. 3. New lung nodule suspicious for metastatic disease. 4. Severe emphysema. Reviewed, dictated and finalized at location A. 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
--- OUTSIDE RECORDS SUMMARY | 2024-10-29 10:49 | XMS_ITS | Clinical Summary ---
Author Organization [facility] Address [address] [place] [address] Care Team Providers Care Streetcar Motorman Name Role Phone Bryant Balderas MD Primary Care Provider [phone] Allergies No known active allergies Medications albuterol [...] on file Legal Sex Female 3:04 PM ARTIFICIAL LIMB FITTER Gender Identity Not on file Sexual Orientation Not on file Last Filed Vital Signs Vital Sign Reading Time Taken Comments Blood Pressure 126/81 12/05/2023 10:44 AM CDT Pulse 69 12/05/2023 10:44 AM CDT Temperature 36.2 C (97.1 F) 12/05/2023 10:44 AM CDT Respiratory Rate 12 12/05/2023 10:44 AM CDT Oxygen Saturation 90% 12/05/2023 10:44 AM CDT Inhaled Oxygen Concentration - - Weight 44 kg (97 lb) 10/23/2023 1:36 PM ARTIFICIAL LIMB FITTER Height - - Body Mass Index - - Plan of Treatment Health Maintenance Due Date Last Done Comments RSV VACCINE (60+ or ) (1 - Risk 60-74 years 1-dose series) 2019 COVID-19 Vaccine ( - 2023-2 5 season) 2024 08/31/2021, 12/16/2020, [...] MAMMO BILAT DIAGNOSTIC Routine 11/07/2023 12:36 PM ARTIFICIAL LIMB FITTER from Last 3 Months or Most Recently Relevant to Health Maintenance Results * MAMMO BILAT DIAGNOSTIC (11/07/2023 12:36 PM ARTIFICIAL LIMB FITTER) Anatomical Region Laterality Modality Breast Bilateral Other Atif Brown MD MAMMO ORDERABLES Final Result from Last 3 Months or Most Recently Relevant to Health Maintenance Insurance MEDICARE PART A AND B [facility] Care Teams Streetcar Motorman Relationship Specialty Start Date End Date Bryant Baldears MD [address] [place] [address] PCP - General Internal Medicine 10/23/23
--- OUTSIDE RECORDS SUMMARY | 2024-10-29 10:49 | XMS_ITS | Clinical Summary ---
Author Organization [facility] Address [facility] [place] [address] Care Team Providers Care Photographic Intelligence Officer Name Role Phone Jack Arechiga MD Unavailable + Bryant Balderas DO Primary Care Provider [phone] Mahesh Frances MD Unavailable [phone] Gerda Correa MD Unavailable [phone] Allergies No known active allergies Medications [...] on file Legal Sex Female 4:04 PM REEXAMINER Gender Identity Not on file Sexual Orientation Not on file Obstetrics History Last Filed Vital Signs Vital Sign Reading Time Taken Comments Blood Pressure 125/82 10/29/2023 9:14 AM REEXAMINER Pulse 65 10/29/2023 9:14 AM REEXAMINER Temperature 36.4 C (97.6 F) 10/29/2023 9:14 AM REEXAMINER Respiratory Rate - - Oxygen Saturation 91% 10/29/2023 9:14 AM REEXAMINER Inhaled Oxygen Concentration - - Weight 44 kg (97 lb) 10/29/2023 9:14 AM REEXAMINER Height 160 cm (5' 3 ) 10/29/2023 9:14 AM REEXAMINER Body Mass Index 17.18 10/29/2023 9:14 AM REEXAMINER Plan of Treatment Health Maintenance Due Date [...] Zoster Vaccine Completed 09/09/2019, 07/10/2019 [place] [address] [facility] Care Teams Photographic Intelligence Officer Relationship Specialty Start Date End Date Bryant Balderas DO [address] [place] [address] PCP - General Family Medicine 10/29/23 Jack Arechiga MD [address] [place] [address] Referring Physician Gastroenterology 10/22/23 Mahesh Frances MD [id number] [place] [address] Surgeon Colon and Rectal Surgery 10/29/23 Gerda Correa MD [address] [place] [address] Consulting Physician Surgery 02/10/24
--- OUTSIDE RECORDS SUMMARY | 2024-10-29 10:50 | XMS_ITS | CONTINUITY OF CARE DOCUMENT ---
Author Name [email or web address] Address Unknown Organization [facility] Address [address] [place] [address] [address] [place] [address] Phone [phone] Care Team Providers Care Armature Winder Name Role Phone Venu Dallas MD Unavailable JOANIE MCGARRY, JUANA Hull Unavailable [phone] RODRIGUEZ MD Unavailable INSURANCE PROVIDERS Payer name Policy type / Coverage type [place] [id number] [place] [employer] Medicare [id number]
--- OUTSIDE RECORDS SUMMARY | 2024-10-29 10:50 | XMS_ITS | Referral Summary ---
Author Organization [facility] Address [facility] [place] [address] Care Team Providers Care Owner Name Role Phone Jack Arechiga MD Unavailable + Bryant Balderas DO Primary Care Provider [phone] Mahesh Frances MD Unavailable [phone] Gerda Correa MD Unavailable [phone] Allergies No known active allergies Medications [...] on file Legal Sex Female 4:04 PM NEONATAL PEDIATRIC NURSE Gender Identity Not on file Sexual Orientation Not on file Last Filed Vital Signs Vital Sign Reading Time Taken Comments Blood Pressure 125/82 10/29/2023 9:14 AM NEONATAL PEDIATRIC NURSE Pulse 65 10/29/2023 9:14 AM NEONATAL PEDIATRIC NURSE Temperature 36.4 C (97.6 F) 10/29/2023 9:14 AM NEONATAL PEDIATRIC NURSE Respiratory Rate - - Oxygen Saturation 91% 10/29/2023 9:14 AM NEONATAL PEDIATRIC NURSE Inhaled Oxygen Concentration - - Weight 44 kg (97 lb) 10/29/2023 9:14 AM NEONATAL PEDIATRIC NURSE Height 160 cm (5' 3 ) 10/29/2023 9:14 AM NEONATAL PEDIATRIC NURSE Body Mass Index 17.18 10/29/2023 9:14 AM NEONATAL PEDIATRIC NURSE Plan of Treatment Not on file Insurance MEDICARE [facility] Care Teams Owner Relationship Specialty Start Date End Date Bryant Balderas DO [facility] [place] [address] PCP - General Family Medicine 10/29/23 Jack Arechiga MD [address] [place] [address] Referring Physician Gastroenterology 10/22/23 Mahesh Farnces MD [phone] [place] [address] Surgeon Colon and Rectal Surgery 10/29/23 Gerda Correa MD [address] [place] [address] Consulting Physician Surgery 02/10/24
--- OUTSIDE RECORDS SUMMARY | 2024-10-29 10:50 | XMS_ITS | Data Portability ---
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 Name Role Phone RUSLAN OBRIEN Medical Oncologist [phone] KENNETH BARRY Pain Management BRYANT BALDERAS Primary Care Provider Assessment Encounter Date Assessment Date Assessment LastModified by Organization Details LastModified Time 03/15/2024 03/15/2024 we will continue current therapy she has chosen not to see oncologist breast tree has been prescribed I will see her back in about 3 months COPD oxygen metastatic colon cancer discussed at length as well as her anxiety [email or web address] Not available 03/20/2024 14:01:53 06/08/2024 06/08/2024 CBC CMP LIPID PREALBUMIN level ensure or boost daily flu shot. Recommend she get COVID vaccine and RSV as well I would like to see her back in a couple of months she is still contemplating what she is going to do if anything for treatment . [email or web address] Not available 06/08/2024 21:34:37 09/01/2024 09/01/2024 stage [...] daily activity see me in 3 months Not available 09/04/2024 20:17:20 10/21/2024 10/21/2024 abdominal pain I am concerned as she just has progression of her cancer we will obtain CT chest abdomen and pelvis blood work further recommendations accordingly COPD with chronic hypoxic respiratory failure continue current therapy follow up will be scheduled depending upon results of testing but she does have a regular appointment in a couple of months. She may need to go back and see the oncologist she has not seen him for almost a year. Not available 10/23/2024 20:07:11 Plan of Treatment Reminders Order Date Submit Date Provider Last Modified By Organization Details Last Modified Time Details Appointments ANY 15 2024 10:15A Tamia Balderas MD Not available Not available Not available Lab lipid panel, serum 2015 016 [facility], [address] [place] [address], [address], [place], [address], 07/23/2016 07:14:20 urinalysi s, complete 2015 016 [facility], [address] [place] [address], [facility] [address], [place], [address], 07/23/2016 07:14:21 CBC 2015 016 [facility], [address] [place] [address], [facility] [address], [place], [address], 07/23/2016 07:14:20 CMP, serum or plasma 2015 016 [facility], [address] [place] [address], [facility] [address], [place], [address], 07/23/2016 07:14:21 lipid panel, serum 2023 024 [facility], [address], [place], [address], 06/09/2024 15:12:06 CBC 2023 024 [facility], [address], [place], [address], 06/09/2024 15:12:08 CMP, serum or plasma 2023 024 [facility], [address], [address], [place], [address], 06/09/2024 15:12:06 prealbumi n, serum 2023 024 [facility], [facility], [facility] [address], [place], [address], 06/09/2024 15:12:07 vitamin D, 25-hydrox y, total, serum 2023 024 [facility], [address], [address], [place], [address], 09/02/2024 08:29:00 lipid panel, serum 2023 024 [facility], [facility], [facility] [address], [place], [address], 09/02/2024 08:28:51 T3, free, serum or plasma 2023 024 [facility], [address] [facility], [facility] [address], [place], [address], 09/02/2024 08:28:57 T4, free, serum 2023 024 [facility], [facility], [facility] [address], [place], [address], 09/02/2024 08:28:59 CBC w/ auto diff 2023 024 [facility], [address], [address], [place], [address], 09/02/2024 08:28:56 CMP, serum or plasma 2023 024 [facility], [address], [address], [place], [address], 09/02/2024 08:28:52 TSH, ultra-sen sitive, serum 2023 024 [facility], [address] [facility], [facility] [address], [place], [address], 09/02/2024 08:28:55 cobalamin and folate panel, serum 2023 024 [facility], [address] [facility], [facility] [address], [place], [address], 09/02/2024 08:28:53 CMP, serum or plasma 2024 025 [facility], [address] [facility], [facility] [address], [place], [address], 10/22/2024 14:05:23 CBC w/ auto diff 2024 025 [facility], [address] [facility], [facility] [address], [place], [address], 10/22/2024 14:05:23 Referral pulmonary disease specialis t referral - COPD on oxygen/ Please call patient to schedule 2015 016 leslee 8 Elda Barcenas MD, [address] [place], [address], 09/04/2016 10:21:20 Procedures None recorded. Surgeries None recorded. Imaging XR, chest, 2 view 2015 016 [facility] ([facility]), [address] [place], [address], 05/22/2016 02:26:02 CT, chest + abdomen + pelvis, w/ contrast [address] (Imaging), [address] [place] [address], [address], 10/21/2024 13:03:11 Medication Orders pravastat in 40 mg tablet 2015 016 [facility], [address] [place], [address], 01/19/2024 10:55:38 Zithromax Z-Marco A 250 mg tablet 2015 016 maida [facility], [address] [place], [address], 01/19/2024 10:52:31 Breztri Aerospher e 160 mcg-9mcg- 4.8mcg/ac tuation HFA aerosol inhaler 2023 024 [email or web address] [facility], [address] [place] [address], [address], 03/15/2024 13:56:37 Patient TargetsNo targets recorded. Patient Instructions Encounter Date Encounter Id Patient Instructions Last Modified By Organization Details Last Modified Time 05/21/2016 [id number] Flu vaccine when available, no appointment necessary shanti Not available 05/21/2016 12:39:03 03/15/2024 [id number] eating healthy foods: care instructions Not available 03/15/2024 13:56:37 06/08/2024 [id number] eating healthy foods: care instructions [email or web address] Not available 06/08/2024 15:22:54 09/01/2024 [id number] eating healthy foods: care instructions [email or web address] Not available 09/01/2024 12:44:39 10/21/2024 [id number] eating healthy foods: care instructions Not available 10/21/2024 13:03:11 Reason for Referral [facility] Referral for Chronic obstructive pulmonary disease COPD on oxygen/ Please call patient to schedule Referring Physician: Soham Daly, Internal Medicine, Encounter Date: 05/21/2016 Results Created Date Observation Date Name Description Value Unit Range Abnormal Flag Note LastModifiedBy Organization Detail LastModifiedTime 07/22/20 16 07/23/2016 lipid panel , serum cholesterol, total 158 mg/dL 100-19 9 Not Available [facility] ([facility]) [address] [facility], [place], [address], 07/23/2016 07:14:20 07/22/20 16 07/23/2016 lipid panel , serum triglyceride s 55 mg/dL 0-149 Not Available [facility] ([facility]) [address] [facility], [place], [address], 07/23/2016 07:14:20 07/22/20 16 07/23/2016 lipid panel , serum HDL cholesterol 84 mg/dL >39 ACCOR DING TO ATP-I II GUIDE LINES , HDL-C >59 MG/DL IS CONSI DERED A NEGAT MARGIE RISK FACTO R FOR CHD. Not Available [facility] ([facility]) [address] [facility], [place], [address], 07/23/2016 07:14:20 07/22/20 16 07/23/2016 lipid panel , serum VLDL cholesterol amilcar 11 mg/dL 5-40 Not Available [facility] ([facility]) [address] [facility], [place], [address], 07/23/2016 07:14:20 07/22/20 16 07/23/2016 lipid panel , serum LDL cholesterol calc 63 mg/dL 0-99 Not Available [facility] ([facility]) [address] [facility], [place], [address], 07/23/2016 07:14:20 07/22/20 16 07/23/2016 lipid panel , serum comment: [employer] Not Available [facility] ([facility]) [address] [facility], [place], [address], 07/23/2016 07:14:20 07/22/20 16 07/23/2016 lipid panel , serum LDL/HDL ratio 0.8 ratio _unit s 0.0-3. 2 LDL/H DL RATIO MEN WOMEN 1/2 AVG.R ISK 1.0 1.5 AVG.R ISK 3.6 3.2 2X AVG.R ISK 6.2 5.0 3X AVG.R ISK 8.0 6.1 Not Available [facility] ([facility]) [address] [place], [address], 07/23/2016 07:14:20 07/22/20 16 07/23/2016 CBC WBC 6.5 x10e3 /uL 3.4-10 .8 Not Available [facility] ([place] [facility]) [address], [place], [address], 07/23/2016 07:14:20 07/22/20 16 07/23/2016 CBC RBC 3.88 x10e6 /uL 3.77-5 .28 Not Available [facility] ([place] [facility]) [address] [facility] [place], [address], 07/23/2016 07:14:20 07/22/20 16 07/23/2016 CBC hemoglobin 12.0 g/dL 11.1-1 5.9 Not Available [facility] ([facility]) [address] [facility] [place], [address], 07/23/2016 07:14:20 07/22/20 16 07/23/2016 CBC hematocrit 36.7 % 34.0-4 6.6 Not Available [facility] ([facility]) [address] [facility] [place], [address], 07/23/2016 07:14:20 07/22/20 16 07/23/2016 CBC MCV 95 fL 79-97 Not Available [facility] ([facility]) [address] [facility] [place], [address], 07/23/2016 07:14:20 07/22/20 16 07/23/2016 CBC MCH 30.9 pg 26.6-3 3.0 Not Available [facility] ([place] [facility]) [address] [facility] [place], [address], 07/23/2016 07:14:20 07/22/20 16 07/23/2016 CBC MCHC 32.7 g/dL 31.5-3 5.7 Not Available [facility] ([facility]) [address] [facility], [place], [address], 07/23/2016 07:14:20 07/22/20 16 07/23/2016 CBC RDW 13.6 % 12.3-1 5.4 Not Available [facility] ([facility]) [address] [facility], [place], [address], 07/23/2016 07:14:20 07/22/20 16 07/23/2016 CBC platelets 225 x10e3 /uL 150-37 9 Not Available [facility] ([facility]) [address] [facility], [place], [address], 07/23/2016 07:14:20 07/22/20 16 07/23/2016 CBC neutrophils 76 % Not Avai lable [facility] ([facility]) [address] [place], [address], 07/23/2016 07:14:20 07/22/20 16 07/23/2016 CBC lymphs 14 % Not Available [facility] ([facility]) [address] [facility], [place], [address], 07/23/2016 07:14:20 07/22/20 16 07/23/2016 CBC monocytes 7 % Not Availa ble [facility] ([facility]) [address] [facility], [place], [address], 07/23/2016 07:14:20 07/22/20 16 07/23/2016 CBC eos 2 % Not Available [facility] ([facility]) [address] [facility], [place], [address], 07/23/2016 07:14:20 07/22/20 16 07/23/2016 CBC basos 1 % Not Available [facility] ([facility]) [address] [place], [address], 07/23/2016 07:14:20 07/22/20 16 07/23/2016 CBC immature cells [employer] Not Available [facility] ([facility]) [address] [facility], [place], [address], 07/23/2016 07:14:20 07/22/20 16 07/23/2016 CBC neutrophils (absolute) 5.0 x10e3 /uL 1.4-7. 0 Not Available [facility] ([facility]) [address] [facility], [place], [address], 07/23/2016 07:14:20 07/22/20 16 07/23/2016 CBC lymphs (absolute) 0.9 x10e3 /uL 0.7-3. 1 Not Available [facility] ([facility]) [address] [facility], [place], [address], 07/23/2016 07:14:20 07/22/20 16 07/23/2016 CBC monocytes(ab solute) 0.4 x10e3 /uL 0.1-0. 9 Not Available [facility] ([facility]) [address] [facility], [place], [address], 07/23/2016 07:14:20 07/22/20 16 07/23/2016 CBC eos (absolute) 0.1 x10e3 /uL 0.0-0. 4 Not Available [facility] ([facility]) [address] [facility], [place], [address], 07/23/2016 07:14:20 07/22/20 16 07/23/2016 CBC baso (absolute) 0.1 x10e3 /uL 0.0-0. 2 Not Available [facility] ([facility]) [address] [facility], [place], [address], 07/23/2016 07:14:20 07/22/20 16 07/23/2016 CBC immature granulocytes 0 % Not Available [facility]) [address] [facility], [place], [address], 07/23/2016 07:14:20 07/22/20 16 07/23/2016 CBC immature grans (abs) 0.0 x10e3 /uL 0.0-0. 1 Not Available [facility] ([facility]) [address] [place], [address], 07/23/2016 07:14:20 07/22/20 16 07/23/2016 CBC NRBC [employer] Not Available [facility] ([facility]) [address] [place], [address], 07/23/2016 07:14:20 07/22/20 16 07/23/2016 CBC hematology comments: [employer] Not Available [facility] ([facility]) [address] [place], [address], 07/23/2016 07:14:20 07/22/20 16 07/23/2016 CMP, serum or plasm a glucose, serum 75 mg/dL 65-99 Not Available [facility] ([facility]) [address] [place], [address], 07/23/2016 07:14:21 07/22/20 16 07/23/2016 CMP, serum or plasm a BUN 7 mg/dL 6-24 Not Available [facility] ([facility]) [address] [place], [address], 07/23/2016 07:14:21 07/22/20 16 07/23/2016 CMP, serum or plasm a creatinine, serum 0.58 mg/dL 0.57-1 .00 Not Available [facility] ([facility]) [address] [place], [address], 07/23/2016 07:14:21 07/22/20 16 07/23/2016 CMP, serum or plasm a eGFR if nonafricn AM 103 mL/mi n/1.7 3 >59 Not Available [facility] ([facility]) [address] [place], [address], 07/23/2016 07:14:21 07/22/20 16 07/23/2016 CMP, serum or plasm a eGFR if africn AM 118 mL/mi n/1.7 3 >59 Not Available [facility] ([facility]) [address] [facility] [place], [address], 07/23/2016 07:14:21 07/22/20 16 07/23/2016 CMP, serum or plasm a BUN/creatini ne ratio 12 9-23 Not Available [facility] ([facility]) [address] [facility] [place], [address], 07/23/2016 07:14:21 07/22/20 16 07/23/2016 CMP, serum or plasm a sodium, serum 140 mmol/ L 136-14 4 Not Available [facility] ([facility]) [address] [facility] [place], [address], 07/23/2016 07:14:21 07/22/20 16 07/23/2016 CMP, serum or plasm a potassium, serum 4.5 mmol/ L 3.5-5. 2 Not Available [facility] ([place] [facility]) [address] [facility] [place], [address], 07/23/2016 07:14:21 07/22/20 16 07/23/2016 CMP, serum or plasm a chloride, serum 94 mmol/ L 97-106 below low normal Not Available [facility] ([place] [facility]) [address] [facility] [place], [address], 07/23/2016 07:14:21 07/22/20 16 07/23/2016 CMP, serum or plasm a carbon dioxide, total 30 mmol/ L 18-29 above high normal Not Available [facility] ([place] [facility]) [address] [facility] [place], [address], 07/23/2016 07:14:21 07/22/20 16 07/23/2016 CMP, serum or plasm a calcium, serum 9.5 mg/dL 8.7-10 .2 Not Available [facility] ([facility] [facility]) [address] [facility] [place], [address], 07/23/2016 07:14:21 07/22/20 16 07/23/2016 CMP, serum or plasm a protein, total, serum 6.8 g/dL 6.0-8. 5 Not Available [facility] ([facility]) [address] [facility] [place], [address], 07/23/2016 07:14:21 07/22/20 16 07/23/2016 CMP, serum or plasm a albumin, serum 4.5 g/dL 3.5-5. 5 Not Available [facility] ([facility]) [address] [facility] [place], [address], 07/23/2016 07:14:21 07/22/20 16 07/23/2016 CMP, serum or plasm a globulin, total 2.3 g/dL 1.5-4. 5 Not Available [facility] ([facility]) [address] [facility] [place], [address], 07/23/2016 07:14:21 07/22/20 16 07/23/2016 CMP, serum or plasm a A/G ratio 2.0 1.1-2. 5 Not Available [facility] ([facility]) [address] [facility] [place], [address], 07/23/2016 07:14:21 07/22/20 16 07/23/2016 CMP, serum or plasm a bilirubin, total 0.3 mg/dL 0.0-1. 2 Not Available [facility] ([facility]) [address] [facility] [place], [address], 07/23/2016 07:14:21 07/22/20 16 07/23/2016 CMP, serum or plasm a alkaline phosphatase, S 35 IU/L 39-117 below low normal Not Available [facility] ([facility]) [address] [facility] [place], [address], 07/23/2016 07:14:21 07/22/20 16 07/23/2016 CMP, serum or plasm a AST (SGOT) 17 IU/L 0-40 Not Available [facility] ([facility]) [address] [facility], [place], [address], 07/23/2016 07:14:21 07/22/20 16 07/23/2016 CMP, serum or plasm a ALT (SGPT) 14 IU/L 0-32 Not Available [facility] ([facility]) [address] [facility], [place], [address], 07/23/2016 07:14:21 07/22/20 16 07/23/2016 urina lysis , compl ete specific gravity 1.007 1.005- 1.030 Not Available [facility] ([facility]) [address] [facility], [place], [address], 07/23/2016 07:14:21 07/22/20 16 07/23/2016 urina lysis , compl ete pH 7.5 5.0-7. 5 Not Available [facility] ([facility]) [address] [facility], [place], [address], 07/23/2016 07:14:21 07/22/20 16 07/23/2016 urina lysis , compl ete urine-color YELLOW yellow Not Available [facility] ([facility]) [address] [facility], [place], [address], 07/23/2016 07:14:21 07/22/20 16 07/23/2016 urina lysis , compl ete appearance CLEAR clear Not Available [facility] ([facility]) [address] [facility], [place], [address], 07/23/2016 07:14:21 07/22/20 16 07/23/2016 urina lysis , compl ete WBC esterase NEGATI VE negati ve Not Available [facility] ([facility]) [address] [facility], [place], [address], 07/23/2016 07:14:21 07/22/20 16 07/23/2016 urina lysis , compl ete protein NEGATI VE negati ve/tra ce Not Available [facility] ([facility]) [address] [facility], [place], [address], 07/23/2016 07:14:21 07/22/20 16 07/23/2016 urina lysis , compl ete glucose NEGATI VE negati ve Not Available [facility] ([facility]) [address] [place], [address], 07/23/2016 07:14:21 07/22/20 16 07/23/2016 urina lysis , compl ete ketones NEGATI VE negati ve Not Available [facility] ([facility]) [address] [place], [address], 07/23/2016 07:14:21 07/22/20 16 07/23/2016 urina lysis , compl ete occult blood NEGATI VE negati ve Not Available [facility] ([facility]) [address] [place], [address], 07/23/2016 07:14:21 07/22/20 16 07/23/2016 urina lysis , compl ete bilirubin NEGATI VE negati ve Not Available [facility] ([facility]) [address] [place], [address], 07/23/2016 07:14:21 07/22/20 16 07/23/2016 urina lysis , compl ete urobilinogen ,semi-qn 0.2 mg/dL 0.2-1. 0 Not Available [facility] ([facility]) [address] [place], [address], 07/23/2016 07:14:21 07/22/20 16 07/23/2016 urina lysis , compl ete nitrite, urine NEGATI VE negati ve Not Available [facility] ([facility]) [address] [place], [address], 07/23/2016 07:14:21 07/22/20 16 07/23/2016 urina lysis , compl ete microscopic examination COMMEN T MICRO SCOPI C NOT INDIC ATED AND NOT PERFO RMED. Not Available [facility] ([facility]) [address] [place], [address], 07/23/2016 07:14:21 07/14/20 20 07/15/2020 HbA1c (hemo globi n A1c), blood hemoglobin A1C 6.9 % 4.8-5. 6 above high normal Predi abete s: 5.7 - 6.4 Diabe betito: >6.4 Glyce dhiraj contr ol for adult s with diabe betito: <7.0 Not Available [facility] ([facility]) [address] [place], [address], 07/15/2020 07:37:11 06/08/20 24 06/09/2024 LIPID PANEL cholesterol, total 217 mg/dL 100-19 9 above high normal Not Available [facility] ([facility]) [address] [place], [address], 06/09/2024 15:12:06 06/08/20 24 06/09/2024 LIPID PANEL triglyceride s 65 mg/dL 0-149 Not Available [facility] ([facility]) [address] [place], [address], 06/09/2024 15:12:06 06/08/20 24 06/09/2024 LIPID PANEL HDL cholesterol 71 mg/dL >39 Not Available [facility]) [address] [place], [address], 06/09/2024 15:12:06 06/08/20 24 06/09/2024 LIPID PANEL VLDL cholesterol amilcar 11 mg/dL 5-40 Not Available [facility] ([facility]) [address] [place], [address], 06/09/2024 15:12:06 06/08/20 24 06/09/2024 LIPID PANEL LDL chol calc (nih) 135 mg/dL 0-99 above high normal Not Available [facility] ([facility]) [address] [place], [address], 06/09/2024 15:12:06 06/08/20 24 06/09/2024 COMP. METAB OLIC PANEL (14) glucose - mg/dL Test not perfo rmed. Serum was in conta ct with cells when recei desean which will make the resul t inacc urate . Not Available [facility] ([facility]) [address] [facility], [place], [address], 06/09/2024 15:12:06 06/08/20 24 06/09/2024 COMP. METAB OLIC PANEL (14) BUN 13 mg/dL 8-27 Not Available [facility] ([facility]) [address] [place], [address], 06/09/2024 15:12:06 06/08/20 24 06/09/2024 COMP. METAB OLIC PANEL (14) creatinine 0.57 mg/dL 0.57-1 .00 Not Available [facility] ([facility]) [address] [place], [address], 06/09/2024 15:12:06 06/08/20 24 06/09/2024 COMP. METAB OLIC PANEL (14) eGFR 101 mL/mi n/1.7 3 >59 Not Available [facility] ([facility]) [address] [place], [address], 06/09/2024 15:12:06 06/08/20 24 06/09/2024 COMP. METAB OLIC PANEL (14) BUN/creatini ne ratio 23 12-28 Not Available [facility] ([facility]) [address] [place], [address], 06/09/2024 15:12:06 06/08/20 24 06/09/2024 COMP. METAB OLIC PANEL (14) sodium 137 mmol/ L 134-14 4 Not Available [facility] ([facility]) [address] [facility] [place], [address], 06/09/2024 15:12:06 06/08/20 24 06/09/2024 COMP. METAB OLIC PANEL (14) potassium - mmol/ L Test not perfo rmed. Serum was in conta ct with cells when recei desean which will make the resul t inacc urate . Not Available [facility] ([facility]) [address] [facility] [place], [address], 06/09/2024 15:12:06 06/08/20 24 06/09/2024 COMP. METAB OLIC PANEL (14) chloride 92 mmol/ L 96-106 below low normal Not Available [facility] ([facility]) [address] [facility] [place], [address], 06/09/2024 15:12:06 06/08/20 24 06/09/2024 COMP. METAB OLIC PANEL (14) carbon dioxide, total 26 mmol/ L 20-29 Not Available [facility] ([facility]) [address] [facility] [place], [address], 06/09/2024 15:12:06 06/08/20 24 06/09/2024 COMP. METAB OLIC PANEL (14) calcium 9.4 mg/dL 8.7-10 .3 Not Available [facility] ([facility]) [address] [facility] [place], [address], 06/09/2024 15:12:06 06/08/20 24 06/09/2024 COMP. METAB OLIC PANEL (14) protein, total 7.0 g/dL 6.0-8. 5 Not Available [facility] ([facility]) [address] [facility] [place], [address], 06/09/2024 15:12:06 06/08/20 24 06/09/2024 COMP. METAB OLIC PANEL (14) albumin 4.3 g/dL 3.9-4. 9 Not Available [facility] ([facility] [address] [facility] [place], [address], 06/09/2024 15:12:06 06/08/20 24 06/09/2024 COMP. METAB OLIC PANEL (14) globulin, total 2.7 g/dL 1.5-4. 5 Not Available [facility] ([facility] [address] [facility] [place], [address], 06/09/2024 15:12:06 06/08/20 24 06/09/2024 COMP. METAB OLIC PANEL (14) bilirubin, total 0.2 mg/dL 0.0-1. 2 Not Available [facility] ([facility] [address] [facility] [place], [address], 06/09/2024 15:12:06 06/08/20 24 06/09/2024 COMP. METAB OLIC PANEL (14) alkaline phosphatase 61 IU/L 44-121 Not Available [facility] [address] [facility] [place], [address], 06/09/2024 15:12:06 06/08/20 24 06/09/2024 COMP. METAB OLIC PANEL (14) AST (SGOT) 24 IU/L 0-40 Not Available [facility] ([facility]) [address] [facility] [place], [address], 06/09/2024 15:12:06 06/08/20 24 06/09/2024 COMP. METAB OLIC PANEL (14) ALT (SGPT) 14 IU/L 0-32 Not Available [facility] ([facility]) [address] [facility] [place], [address], 06/09/2024 15:12:06 06/08/20 24 06/09/2024 PREAL BUMIN prealbumin 11 mg/dL 10-36 Not Available [facility] ([facility]) [address] [facility] [place], [address], 06/09/2024 15:12:07 06/08/20 24 06/09/2024 CBC, PLATE LET, NO DIFFE RENTI AL WBC 4.9 x10e3 /uL 3.4-10 .8 Not Available [facility] ([facility]) [address] [facility], [place], [address], 06/09/2024 15:12:08 06/08/20 24 06/09/2024 CBC, PLATE LET, NO DIFFE RENTI AL RBC 4.20 x10e6 /uL 3.77-5 .28 Not Available [facility] ([facility]) [address] [place], [address], 06/09/2024 15:12:08 06/08/20 24 06/09/2024 CBC, PLATE LET, NO DIFFE RENTI AL hemoglobin 12.3 g/dL 11.1-1 5.9 Not Available [facility] ([facility]) [address] [facility], [place], [address], 06/09/2024 15:12:08 06/08/2006/09/2024 CBC, PLATE LET, NO DIFFE RENTI AL hematocrit 39.9 % 34.0-4 6.6 Not Available [facility] ([facility]) [address] [place], [address], 06/09/2024 15:12:08 06/08/2006/09/2024 CBC, PLATE LET, NO DIFFE RENTI AL MCV 95 fL 79-97 Not Available [facility] ([facility]) [address] [place], [address], 06/09/2024 15:12:08 06/08/2006/09/2024 CBC, PLATE LET, NO DIFFE RENTI AL MCH 29.3 pg 26.6-3 3.0 Not Available [facility] ([facility]) [address] [place], [address], 06/09/2024 15:12:08 06/08/20 24 06/09/2024 CBC, PLATE LET, NO DIFFE RENTI AL MCHC 30.8 g/dL 31.5-3 5.7 below low normal Not Available [facility] ([facility]) [address] [facility], [place], [address], 06/09/2024 15:12:08 06/08/20 24 06/09/2024 CBC, PLATE LET, NO DIFFE RENTI AL RDW 12.4 % 11.7-1 5.4 Not Available [facility] ([facility]) [address] [facility], [place], [address], 06/09/2024 15:12:08 06/08/20 24 06/09/2024 CBC, PLATE LET, NO DIFFE RENTI AL platelets 230 x10e3 /uL 150-45 0 Not Available [facility] ([facility]) [address] [facility], [place], [address], 06/09/2024 15:12:08 08/15/20 24 08/15/2024 COLOG UARD [...] is negat margie. TEST DESCR IPTIO N: [place] site algor ithmi c joseph sis of stool DNA-b sosa crocker with hemog lobin immun oassa y. [...] years or older , who are at [facility] for color ectal cance r (CRC) . Colog uard has been appro desean for use by the U.[place]. FDA. The perfo rmanc e of Colog uard was estab lishe d in a cross secti onal study of [facility] adult s aged 50-84 . Colog uard perfo rmanc e in patie nts ages 45 to 49 years was estim ated by sub-g michelle joseph sis of near- age group s. Colon oscop ies perfo rmed for a posit margie resul t may find as the most clini ashlyn signi fican t lesio n: color ectal cance r [4.0% ], advan rut adeno ma (incl uding sessi le amry lina polyp s great er than or equal to 1cm diame ter) [20%] or non- advan rut adeno ma [31%] ; or no color ectal neopl tyrell [45%] . These estim ates are deriv ed from a prosp ectiv e cross -sect ional scree khoi study of 0 indiv idual s at [facility] risk for color ectal cance r who were scree kelley with both Colog uard and colon oscop y. (Arnie Jimenez et al, N Engl J Med 2014; 370(1 [...] uard perfo rmanc e data in a 0 patie nt pivot al study using colon oscop y as the refer ence metho d can be acces sed at the follo wing locat ion: www.e xactl abs.c om/re sults . Addit ional descr iptio n of the Colog uard test proce ss, warni ngs and preca ution s can be found at www.riki pérez.riki om. Not Available [facility] (Cologuard Orders Only) [address], [place], [address], 08/22/2024 17:30:49 09/01/20 24 09/02/2024 LIPID PANEL cholesterol, total 189 mg/dL 100-19 9 Not Available [facility] ([facility]) [address] [place], [address], 09/02/2024 08:28:50 09/01/20 24 09/02/2024 LIPID PANEL triglyceride s 71 mg/dL 0-149 Not Available [facility] ([facility]) [address] [place], [address], 09/02/2024 08:28:50 09/01/20 24 09/02/2024 LIPID PANEL HDL cholesterol 71 mg/dL >39 Not Available [facility] ([facility]) [address] [place], [address], 09/02/2024 08:28:50 09/01/20 24 09/02/2024 LIPID PANEL VLDL cholesterol amilcar 13 mg/dL 5-40 Not Available [facility] ([facility]) [address] [place], [address], 09/02/2024 08:28:50 09/01/20 24 09/02/2024 LIPID PANEL LDL chol calc ([facility]) 105 mg/dL 0-99 above high normal Not Available [facility] ([facility]) [address] [place], [address], 09/02/2024 08:28:50 09/01/20 24 09/02/2024 COMP. METAB OLIC PANEL (14) glucose 73 mg/dL 70-99 Not Available [facility] ([facility]) [address] [place], [address], 09/02/2024 08:28:52 09/01/20 24 09/02/2024 COMP. METAB OLIC PANEL (14) BUN 14 mg/dL 8-27 Not Available [facility] ([facility]) [address] [facility] [place], [address], 09/02/2024 08:28:52 09/01/20 24 09/02/2024 COMP. METAB OLIC PANEL (14) creatinine 0.46 mg/dL 0.57-1 .00 below low normal Not Available [facility] ([facility]) [address] [facility] [place], [address], 09/02/2024 08:28:52 09/01/20 24 09/02/2024 COMP. METAB OLIC PANEL (14) eGFR 106 mL/mi n/1.7 3 >59 Not Available [facility] ([facility]) [address] [facility] [place], [address], 09/02/2024 08:28:52 09/01/20 24 09/02/2024 COMP. METAB OLIC PANEL (14) BUN/creatini ne ratio 30 12-28 above high normal Not Available [facility] ([facility]) [address] [facility] [place], [address], 09/02/2024 08:28:52 09/01/20 24 09/02/2024 COMP. METAB OLIC PANEL (14) sodium 138 mmol/ L 134-14 4 Not Available [facility] ([facility]) [address] [facility] [place], [address], 09/02/2024 08:28:52 09/01/20 24 09/02/2024 COMP. METAB OLIC PANEL (14) potassium 4.0 mmol/ L 3.5-5. 2 Not Available [facility] ([facility]) [address] [facility] [place], [address], 09/02/2024 08:28:52 09/01/20 24 09/02/2024 COMP. METAB OLIC PANEL (14) chloride 94 mmol/ L 96-106 below low normal Not Available [facility] ([facility]) [address] [place], [address], 09/02/2024 08:28:52 09/01/20 24 09/02/2024 COMP. METAB OLIC PANEL (14) carbon dioxide, total 28 mmol/ L 20-29 Not Available [facility] ([facility]) [address] [place], [address], 09/02/2024 08:28:52 09/01/20 24 09/02/2024 COMP. METAB OLIC PANEL (14) calcium 9.2 mg/dL 8.7-10 .3 Not Available [facility] ([facility]) [address] [place], [address], 09/02/2024 08:28:52 09/01/20 24 09/02/2024 COMP. METAB OLIC PANEL (14) protein, total 6.3 g/dL 6.0-8. 5 Not Available [facility] ([facility]) [address] [place], [address], 09/02/2024 08:28:52 09/01/20 24 09/02/2024 COMP. METAB OLIC PANEL (14) albumin 3.8 g/dL 3.9-4. 9 below low normal Not Available [facility] ([facility]) [address] [place], [address], 09/02/2024 08:28:52 09/01/20 24 09/02/2024 COMP. METAB OLIC PANEL (14) globulin, total 2.5 g/dL 1.5-4. 5 Not Available [facility] ([facility]) [address] [place], [address], 09/02/2024 08:28:52 09/01/20 24 09/02/2024 COMP. METAB OLIC PANEL (14) bilirubin, total 0.2 mg/dL 0.0-1. 2 Not Available [facility] ([facility]) [address] [place], [address], 09/02/2024 08:28:52 09/01/20 24 09/02/2024 COMP. METAB OLIC PANEL (14) alkaline phosphatase 72 IU/L 44-121 Not Available [facility]) [address] [place], [address], 09/02/2024 08:28:52 09/01/20 24 09/02/2024 COMP. METAB OLIC PANEL (14) AST (SGOT) 25 IU/L 0-40 Not Available [facility] ([facility]) [address] [place], [address], 09/02/2024 08:28:52 09/01/20 24 09/02/2024 COMP. METAB OLIC PANEL (14) ALT (SGPT) 16 IU/L 0-32 Not Available [facility] ([facility]) [address] [place], [address], 09/02/2024 08:28:52 09/01/20 24 09/02/2024 VITAM IN B12 AND FOLAT E vitamin B12 335 pg/mL 232-12 45 Not Available [facility] ([facility]) [address] [facility] [place], [address], 09/02/2024 08:28:53 09/01/20 24 09/02/2024 VITAM IN B12 AND FOLAT E folate (folic acid), serum 12.1 NG/mL >3.0 A serum folat e krystian ntrat ion of less than 3.1 ng/mL is consi dered to repre sent clini amilcar defic iency . Not Available [facility] ([facility]) [address] [place], [address], 09/02/2024 08:28:53 09/01/20 24 09/02/2024 TSH TSH 4.810 uIU/m L 0.450- 4.500 above high normal Not Available [facility] ([facility]) [address] [place], [address], 09/02/2024 08:28:55 09/01/20 24 09/01/2024 CBC WITH DIFFE RENTI AL/PL ATELE T WBC 5.9 x10e3 /uL 3.4-10 .8 Not Available [facility] ([facility]) [address] [place], [address], 09/02/2024 08:28:56 09/01/20 24 09/01/2024 CBC WITH DIFFE RENTI AL/PL ATELE T RBC 3.70 x10e6 /uL 3.77-5 .28 below low normal Not Available [facility] ([facility]) [address] [facility] [place], [address], 09/02/2024 08:28:56 09/01/20 24 09/01/2024 CBC WITH DIFFE RENTI AL/PL ATELE T hemoglobin 10.7 g/dL 11.1-1 5.9 below low normal Not Available [facility] ([facility]) [address] [place], [address], 09/02/2024 08:28:56 09/01/20 24 09/01/2024 CBC WITH DIFFE RENTI AL/PL ATELE T hematocrit 34.9 % 34.0-4 6.6 Not Available [facility] ([facility]) [address] [place], [address], 09/02/2024 08:28:56 09/01/20 24 09/01/2024 CBC WITH DIFFE RENTI AL/PL ATELE T MCV 94 fL 79-97 Not Available [facility] ([facility]) [address] [place], [address], 09/02/2024 08:28:56 09/01/20 24 09/01/2024 CBC WITH DIFFE RENTI AL/PL ATELE T MCH 28.9 pg 26.6-3 3.0 Not Available [facility] ([facility]) [address] [facility] [place], [address], 09/02/2024 08:28:56 09/01/20 24 09/01/2024 CBC WITH DIFFE RENTI AL/PL ATELE T MCHC 30.7 g/dL 31.5-3 5.7 below low normal Not Available [facility] ([facility]) [address] [facility], [place], [address], 09/02/2024 08:28:56 09/01/20 24 09/01/2024 CBC WITH DIFFE RENTI AL/PL ATELE T RDW 12.0 % 11.7-1 5.4 Not Available [facility] ([facility]) [address] [facility] [place], [address], 09/02/2024 08:28:56 09/01/20 24 09/01/2024 CBC WITH DIFFE RENTI AL/PL ATELE T platelets 214 x10e3 /uL 150-45 0 Not Available [facility] ([facility]) [address] [place], [address], 09/02/2024 08:28:56 09/01/20 24 09/01/2024 CBC WITH DIFFE RENTI AL/PL ATELE T neutrophils 82 % notest ab. Not Available [facility] ([facility]) [address] [place], [address], 09/02/2024 08:28:56 09/01/20 24 09/01/2024 CBC WITH DIFFE RENTI AL/PL ATELE T lymphs 8 % notest ab. Not Available [facility] ([facility]) [address] [place], [address], 09/02/2024 08:28:56 09/01/20 24 09/01/2024 CBC WITH DIFFE RENTI AL/PL ATELE T monocytes 8 % notest ab. Not Available [facility] ([facility]) [address] [facility] [place], [address], 09/02/2024 08:28:56 09/01/20 24 09/01/2024 CBC WITH DIFFE RENTI AL/PL ATELE T eos 1 % notest ab. Not Available [facility] ([facility]) [address] [facility], [place], [address], 09/02/2024 08:28:56 09/01/20 24 09/01/2024 CBC WITH DIFFE RENTI AL/PL ATELE T basos 1 % notest ab. Not Available [facility] ([facility]) [address] [facility], [place], [address], 09/02/2024 08:28:56 09/01/20 24 09/01/2024 CBC WITH DIFFE RENTI AL/PL ATELE T neutrophils (absolute) 4.9 x10e3 /uL 1.4-7. 0 Not Available [facility] ([facility]) [address] [place], [address], 09/02/2024 08:28:56 09/01/20 24 09/01/2024 CBC WITH DIFFE RENTI AL/PL ATELE T lymphs (absolute) 0.5 x10e3 /uL 0.7-3. 1 below low normal Not Available [facility] ([facility]) [address] [place], [address], 09/02/2024 08:28:56 09/01/20 24 09/01/2024 CBC WITH DIFFE RENTI AL/PL ATELE T monocytes(ab solute) 0.5 x10e3 /uL 0.1-0. 9 Not Available [facility] ([facility]) [address] [facility], [place], [address], 09/02/2024 08:28:56 09/01/20 24 09/01/2024 CBC WITH DIFFE RENTI AL/PL ATELE T eos (absolute) 0.1 x10e3 /uL 0.0-0. 4 Not Available [facility] ([facility]) [address] [place], [address], 09/02/2024 08:28:56 09/01/20 24 09/01/2024 CBC WITH DIFFE RENTI AL/PL ATELE T baso (absolute) 0.1 x10e3 /uL 0.0-0. 2 Not Available [facility] ([facility]) [address] [place], [address], 09/02/2024 08:28:56 09/01/20 24 09/01/2024 CBC WITH DIFFE RENTI AL/PL ATELE T immature granulocytes 0 % notest ab. Not Available [facility] ([facility]) [address] [place], [address], 09/02/2024 08:28:56 09/01/20 24 09/01/2024 CBC WITH DIFFE RENTI AL/PL ATELE T immature grans (abs) 0.0 x10e3 /uL 0.0-0. 1 Not Available [facility] ([facility]) [address] [place], [address], 09/02/2024 08:28:56 09/01/20 24 09/02/2024 TRIIO DOTHY MONO E (T3), FREE triiodothyro nine (T3), free 2.0 pg/mL 2.0-4. 4 Not Available [facility] ([facility]) [address] [place], [address], 09/02/2024 08:28:57 09/01/20 24 09/02/2024 T4,FR EE(DI RECT) T4,free(dire ct) 1.07 NG/dL 0.82-1 .77 Not Available [facility] ([facility]) [address] [place], [address], 09/02/2024 08:28:59 09/01/20 24 09/02/2024 VITAM IN [...] 1. IOM (Inst itute of Medic ine). 2009. Dieta ry refer ence intak es for calci um and D. Alex cabrera [place]: [facility] . 2. Maikol schmitz MF, [place], Bisch off-F errar i GILLETTE, et al. Evalu ation , treat ment, and preve ntion of vitam in D defic iency : an Endoc rine Socie ty clini amilcar pract ice guide line. JCEM. 2010; 96(7) :1911 -30. Not Available [facility] ([facility]) [address], [place], [address], 09/02/2024 08:29:00 05/21/20 16 05/21/2016 XR, chest , 2 view No observ ation record ed. [facility] (Imaging) [address] [place], [address], 05/22/2016 11:15:48 09/03/20 16 pulmo nary disea se speci alist refer [facility] No observ ation record ed. [email or web address] [place] [address] [facility] [address] [place], [address], 09/04/2016 10:21:09 Result Notes None recorded. Problems Name Problem SNOMED Code Status Onset Date Resolution Date Notes Provider Name and Address Organization Details Recorded Time Malignant tumor of colon 268305420 Active 2023 Nathan Ruffin MA null, [place] - [facility] 4 10:30:15 Fatigue 36033816 Active 2023 Nathan Ruffin [place] [facility] 4 10:30:16 Vitamin D deficiency 63066079 Active 2023 Nathan Ruffin [place] [facility] 4 11:00:20 Screening for cardiovascular system disease Active 2023 Nathan Ruffin [place] [facility] 4 11:00:21 Abdominal pain 43139267 Active 2024 Nathan Ruffin [place] [facility] 5 11:26:52 Carcinoma of colon, stage IV 781082342 Active 2024 Bryant Balderas MD Attn: Esvin varghese,[address] [place], [address], [place] [facility] 5 20:05:46 Disorder of lipid metabolism 525550276 Active Soham Daly MD Attn: Esvin varghese,[address] [place], [address], [place] [facility] 6 14:21:43 Trying to give up smoking 631816305 Active Soham Daly MD Attn: Esvin varghese,[address] [place], [address], [place] [facility] 6 13:28:00 Acute bronchitis 04306402 Active Soham Daly MD Attn: Esvin varghese,[address] [place], [address], [place] [facility] 6 14:21:43 Chronic obstructive pulmonary disease 39812575 Active Soham Daly MD Attn: Esvin varghese,[address] [place], [address], [place] [facility] 6 14:21:43 Problem Notes None recorded. Procedures Surgical History Date Name Laterality Status Provider Name and Address Organization Details Recorded Time 4 Repair rotator cuff acute completed Soham Daly MD Attn: Accounting,[address], [place], [address], [place] [facility] 10/12/2014 11:37:15 Imaging Results Imaging Date Name Status LastModified by Organiz ation Details LastModified Time 05/21/2016 XR, chest, 2 view completed mrior [facility] (Imaging) [address] [place], [address], 05/22/2016 11:15:48 09/03/2016 care management specialist referral completed [email or web address] [facility] [address] [place], [address], 09/04/2016 10:21:09 Procedure Notes None recorded. Medical [...] t Available Vitals Date Recorded Body height Body mass index (BMI) Body weight Heart rate Oxygen saturation Oxygen saturation in Arterial blood by Pulse oximetry Inhaled oxygen flow rate Pain severity - 0-10 verbal numeric rating [Score] - Reported Systolic blood pressure Diastolic blood pressure Provider Name and Address Organization Details Last Updated DateTime 4 157.48 cm 17.4 kg/m2 70453.4 2 g 70 /min 95 % 95 % 2 L/min 0 104 mm[Hg] 68 mm[Hg] Maddison Payton CORY [place] - [facility] 4 11:29:48 Date Recorded Body height Body mass index (BMI) Body weight Heart rate Oxygen saturation Oxygen saturation in Arterial blood by Pulse oximetry Inhaled oxygen flow rate Systolic blood pressure Diastolic blood pressure Provider Name and Address Organization Details Last Updated DateTime 4 157.48 cm 16.1 kg/m2 32039.8 5 g 87 /min 98 % 98 % 3 L/min 100 mm[Hg] 72 mm[Hg] [facility] 4 11:10:13 Date Recorded Body height Body mass index (BMI) Body weight Oxygen saturation Oxygen saturation in Arterial blood by Pulse oximetry Inhaled oxygen flow rate Heart rate Systolic blood pressure Diastolic blood pressure Provider Name and Address Organization Details Last Updated DateTime 4 157.48 cm 15.9 kg/m2 40381.9 g 90 % 90 % 3 L/min 92 /min 110 mm[Hg] 82 mm[Hg] [facility] 4 10:07:44 Date Recorded Body height Body mass index (BMI) Body weight Heart rate Oxygen saturation Oxygen saturation in Arterial blood by Pulse oximetry Inhaled oxygen flow rate Systolic blood pressure Diastolic blood pressure Provider Name and Address Organization Details Last Updated DateTime 5 157.48 cm 15.8 kg/m2 92139.6 6 g 76 /min 93 % 93 % 3 L/min 98 mm[Hg] 64 mm[Hg] [facility] - [facility] 5 10:37:12 Date Recorded Body temperature Body mass index (BMI) Body height Oxygen saturation Oxygen saturation in Arterial blood by Pulse oximetry Body weight Heart rate Systolic blood pressure Diastolic blood pressure Provider Name and Address Organization Details Last Updated DateTime 6 97.2 [degF] 16.8 kg/m2 162.56 cm 95 % 95 % 46370.0 5226 g 62 /min 98 mm[Hg] 60 mm[Hg] Priscilla Olson MA [place] - [facility] 6 12:11:19 Social History Question Answer Notes LastModified by Organizat ion Details LastModified Time Tobacco Smoking Status Former Smoker December [facility] [place], [place] - [facility] 10/12/2014 11:26:12 Do You Have An Advance [...] 11:35:41 Mother Malignant neoplasm of urinary bladder katiema Not available 02/21 11:36:11 Medical History Condition Response Cancer Y COPD Y Asthma Y High Cholesterol Y Gynecological HistoryNo gynecological history recorded. Obstetrics History GPAL:G 0 P 0 0 0 0 Immunizations Vaccine Type Date Status Note Provider Nam e and Address Organization Details Recorded Time Tdap 5 completed Not Available [facility] 10/09/2019 02:40:25 Influenza, split virus, quadrivalent, preservative 7 completed Maddison Payton, RMA null, [place] [facility] 03/15/2024 11:24:06 Influenza, recombinant, quadrivalent, PF 0 completed Maddison Payton R[place] [facility] 03/15/2024 11:24:07 Influenza, recombinant, quadrivalent, PF 9 completed Maddison Payton R[place] [facility] 03/15/2024 11:24:07 zoster recombinant 9 completed Maddison Payton [place] [facility] 03/15/2024 11:24:07 zoster recombinant 9 completed Maddison Payton R[place] [facility] 03/15/2024 11:24:07 COVID-19, mRNA, LNP-S, PF, 100 mcg/0.5mL dose or 50 mcg/0.25mL dose 1 completed TRINI GarciaA null, [place] [facility] 03/15/2024 11:24:07 COVID-19, mRNA, LNP-S, PF, 100 mcg/0.5mL dose or 50 mcg/0.25mL dose 1 completed Maddison Payton R[place] [facility] 03/15/2024 11:24:07 COVID-19, mRNA, LNP-S, PF, 100 mcg/0.5mL dose or 50 mcg/0.25mL dose 1 completed Maddison Payton [place] [facility] 03/15/2024 11:24:07 pneumococcal polysaccharide PPV23 2 completed CORY [place] [facility] 03/15/2024 11:24:07 Influenza, split virus, quadrivalent, PF 3 completed Maddison Payton, R[place] [facility] 03/15/2024 11:24:07 Influenza, split virus, quadrivalent, PF 1 completed Maddison Payotn R[place] [facility] 03/15/2024 11:24:07 Influenza, split virus, quadrivalent, PF 2 completed Maddison Payton [place] [facility] 03/15/2024 11:24:07 Influenza, split virus, quadrivalent, PF 8 completed Maddison Payton, [place] [facility] 03/15/2024 11:24:07 pneumococcal polysaccharide PPV23 1 completed Soham Daly MD Attn: [employer]ing,[address] [place], [address], [place] [facility] 04/19/2015 11:56:55 Influenza, high-dose, trivalent, PF 4 completed Soham Daly MD Attn: Accounting[address] [place], [address], [place] [facility] 04/19/2015 11:57:26 Pneumococcal conjugate PCV 13 5 completed Soham Daly MD Attn: Accounting[address] [place], [address], [place] [facility] 11/20/2015 12:51:26 Influenza, split virus, quadrivalent, preservative 5 completed [facility] Available [facility] 10/09/2019 02:49:11 Influenza, split virus, trivalent, preservative 4 completed Bryant Balderas MD Attn: Accounting[address] [place], [address], [place] [facility] 06/08/2024 21:31:31 Past Encounters Encounter ID Performer Location Encounter Start Date Encounter Closed Date Diagnosis/Indication Diagnosis SNOMED-CT Code Diagnosis ICD10 Code Diagnosis Note [id number] [facility] (Adult Med) [address] [place] [address] 10/12/2014 10:55:06 10/12/2014 12:10:05 Chronic obstructive pulmonary disease [id number] Follows up with Dr. Cannon she is not sure if she needs a referral. Flu vaccine is current and Pneumovax was administer ed in ? She will need Prevnar 13 from her local pharmacist and a handwritte n script was given to the patient. 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 Labs have been ordered and she would benefit from Prevnar 13. Last CXR was ?, she stopped in 2012. Her records from Dr. Balderas will also be useful. [id number] David (Adult Med) [address] [place] [address] [phone] 01/18/2015 12:05:05 01/18/2015 13:36:40 Chronic obstructive pulmonary disease [id number] Pneumovax was administer ed in ? She really needs Prevnar 13 from her local pharmacist and a handwritte n script was again given to the patient. CXR findings were discussed, there are issues with her new insurance and her out of pocket expenses, I have reassured her that we will see her regardless of her insurance status. Disorder o f lipid metabolism [id number] Low CHO, low fat diet and then repeat labs in 6 weeks. Screening for cancer [id number] MMG as scheduled, she will reconsider the colonoscop y as previously ordered. [id number] OPAL Torres (Adult Med) [address] [place] [address] [phone] 04/19/2015 11:37:03 04/19/2015 12:12:47 Chronic obstructive pulmonary disease 14341145 Prevnar 13 from her local pharmacist . Labs as previously ordered Tobacco use was discontinu ed in 2012, she however still smokes e-cigarett es, I have discourage d this as well [id number] OPAL Torres (Adult Med) [address] [place] [address] [phone] 06/28/2015 10:57:15 06/28/2015 13:56:31 Influenza vaccine needed [id number] 106 Z28.3 Disorder o f lipid metabolism 214956210 E78.9 Continue low CHO, low fat diet and start Pravastati n 40mg po daily. 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 Screening for malignant neoplasm of colon 129383751 Z12.11 Screening for malignant neoplasm of breast 316244106 Z12.39 Trying to give up smoking 339188609 Z72.0 She was advised to discontinu e the e-cigarett e Disorder o f lipid metabolism 402648923 E78.9 Ms. Wilson returns, she is not really sure why she is here today, the plan was start Pravastati n, obtain labs in 6 weeks and then follow up. She shoud restart her Pravastati n 40mg po daily. Labs in 6 weeks Chronic ob structive pulmonary disease 31241356 J44.9 Tobacco use was discontinu ed in 2012, she however still smokes e-cigarett es, I have discourage d this as well [id number] MD David Richard (Adult Med) [address] [place] [address] [phone] 05/21/2016 11:50:22 05/21/2016 12:51:36 Disorder of lipid metabolism 561594421 E78.9 She shoud remain on the Pravastati n 40mg po daily, I have once again explained this to her as the issue appears to have been her detuctible and the cost of the medication . Chronic ob structive pulmonary disease 16187543 J44.9 Tobacco use was discontinu ed in 2012, she however still smokes e-cigarett es, I have discourage d this once again. Her pulmonolog ist, Dr. Cannon is moving to [place]. Adult heal th examination 416990458 Z00.00 Acute bronchitis 4534503 2 J20.9 She reports an illness 3 weeks ago, she is better somewhat. Screening for malignant neoplasm of colon 404918087 Z12.11 Refused You can't talk me into it yet [id number] Bryant Balderas MD [facility] [address] [place] [address] 03/15/2024 11:00:42 03/15/2024 12:15:12 Underweight 107374863 R63.6 Chronic ob structive pulmonary disease 34193354 J44.9 Chronic hy poxemic respiratory failure 029642665 J96.11 Anxiety 33693609 F41.9 Metastatic malignant neoplasm to colorectum 3052975235 C80.1 [id number] Bryant Balderas MD [facility] (Adult Med) [address] [place] [address] [phone] 0 06/08/2024 10:55:42 06/08/2024 11:57:08 Underweight 125535391 R63.6 Administra tion of influenza vaccine 15730790 Z23 Screening for cardiovascular system disease 015534799 Z13.6 Hyperlipidemia 11035002 E78.5 Chronic hy poxemic respiratory failure 474500191 J96.11 Chronic ob structive pulmonary disease 01886901 J44.9 Moderate protein-calorie malnutrition (weight for age 60-74 percent of standard) 800725821 E44.0 [id number] [facility] [address] [place] [address] [phone] 09/01/2024 09:47:46 09/01/2024 10:32:43 Underweight 914902739 R63.6 Malignant tumor of colon 513155208 C18.9 Fatigue 41801427 R53.83 Chronic ob structive pulmonary disease 57502720 J44.9 Screening for cardiovascular system disease 229580940 Z13.6 Vitamin D deficiency 347 85312 E55.9 Carcinoma of colon, stage IV 260914791 C18.9 [id number] Bryant Balderas MD [facility] [address] [place] [address] 10/21/2024 10:23:42 10/21/2024 11:29:41 Underweight 052906916 R63.6 Abdominal pain 33946239 R10.9 Chronic ob structive pulmonary disease 37217093 J44.9 Carcinoma of colon, stage IV 044066667 C18.9 Health Concerns Section Related Observation LastModified by Organization Detai ls LastModified Time None Recorded Concern Status LastModified by Organization Details LastModified Time None Recorded Advance Directives Directive Y: Payers Encounter Date Sequence Insurance Name Policy Number Policy San Covered Member ID San Member ID Guarantor Name 05/21/2016 1 [place] Manfred Wilson [id number] Manfred Wilson 05/21/2016 2 [employer] [place] Manfred Wilson [id number] Manfred Wilson 03/15/2024 2 [employer] [place] Manfred Wilson [id number] Manfred Wilson 03/15/2024 1 [place] Manfred R Wilson [id number] Manfred Wilson 06/08/2024 2 [employer] [place] Manfred Wilson [id number] Manfred Wilson 06/08/2024 MEDICARE A-[place]: [facility] Manfred Wilson [id number] Manfred Wilson 09/01/2024 1 [place] Manfred R Wilson [id number] Manfred Wilson 09/01/2024 2 [employer] (MEDICARE SUPPLEMENT) Manfred R Wilson [id number] Manfred Wilson 10/21/2024 1 [place] Manfred R Wilson [id number] Manfred Wilson 10/21/2024 2 [employer] (MEDICARE SUPPLEMENT) Manfred R Wilson [id number] Manfred Wilson Notes Date Note Type Note Provider Name and Address Organization Details Recorded Time 03/15/2024 text/html 63-year-old metastatic colon cancer chronic hypoxic respiratory failure on 2 L oxygen anxiety dyslipidemia but she is not taking her statin overall seems to be doing fine she has been seeing a pain management doctor and getting some medical marijuana Bryant Balderas MD Attn: [address] [place], [address], [facility] 03/20/2024 14:02:34 06/08/2024 text/html 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 Breathing okay. Does have some fatigue Bryant Balderas MD Attn: [address] [facility], [place], [address], [facility] 09/04/2024 20:18:48 10/21/2024 text/html she has been hav ing some left upper quadrant pain a feeling of fullness no nausea vomiting bowel movements not affect. She has lost few lb since last visit. COPD her breathing has been stable and she continues to use the oxygen Bryant Balderas MD Attn: [address]ing[address] [facility], [place], [address], [place] [facility] 10/23/2024 20:07:47 OBGyn Episode No OBEpisode recorded.
== END 2024-10-29 10:02 | disposition home or self-care (01) ==
LOC: ANHIMG 10:05
PROVIDERS: PCP Internal Medicine; Visit Provider Internal Medicine
DX: R22.2 Localized swelling, mass and lump, trunk (principal); R59.0 Localized enlarged lymph nodes; R16.0 Hepatomegaly, not elsewhere classified; R91.1 Solitary pulmonary nodule; J43.9 Emphysema, unspecified
CPT/HCPCS: 71260; 74177; Q9967

== ENCOUNTER 2024-12-28 15:49 | Outpatient (CLI) | payer MEDICARE, SELFPAY ==
--- NOTE | ~2024-12-28 | US_ITS ---
EXAMINATION: US venous doppler [facility] DATE: 12/28/2024 17:12 INDICATION: Localized swelling TECHNIQUE: Grayscale ultrasound images without and with compression and Doppler ultrasound images of the left lower extremity veins were obtained. COMPARISON: None. FINDINGS: The visualized portions of left common femoral vein, profunda (deep) femoral vein, femoral vein, popl iteal vein, peroneal veins, posterior tibial veins, and greater saphenous vein outflow are patent. IMPRESSION: 1. No deep venous thrombosis within the left lower extremity. Reviewed, dictated and finalized at location A.
--- OUTSIDE RECORDS SUMMARY | 2024-12-28 16:54 | XMS_ITS | Clinical Summary ---
Author Organization [facility] Address [address] [place] [address] Care Team Providers Care Horse Racing Manager Name Role Phone Bryant Balderas MD Primary Care Provider [phone] Allergies No known active allergies Medications albuterol [...] Encounters Date Type Department Care Team Description 12/08/2024 External Device Data ST[facility] ABSTRACTION Provider, Abstract 11/30/2024 External Device Data [facility] ABSTRACTION Provider, Abstract 11/30/2024 External Device Data [facility] ABSTRACTION Provider, Abstract 11/27/2024 External Device Data [facility] ABSTRACTION Provider, Abstract 11/26/2024 External Device Data [facility] ABSTRACTION Provider, Abstract 11/24/2024 External Device Data [facility] ABSTRACTION Provider, Abstract 11/24/2024 External Device Data [facility] ABSTRACTION Provider, Abstract 11/10/2024 External Device Data [facility] ABSTRACTION Provider, Abstract [...] on file 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 Gender Identity Not on file Sexual Orientation [...] 44 kg (97 lb) 10/23/2023 1:36 PM LABORATORY DEVELOPMENT TECHNICIAN Height - - Body Mass Index - - Plan of Treatment Health Maintenance Due Date Last Done Comments RSV VACCINE (60+ or ) (1 - Risk 60-74 years 1-dose series) 2019 COVID-19 Vaccine (4 - 2023-2 5 season) 2024 08/31/2021, 12/16/2020, 11/18/2020 OSTEOPOROSIS SCREENING 2024 DTAP/TDAP/TD VACCINES (2 - T d or Tdap) 10/12/2024 10/12/2014 BREAST CANCER SCREENING 11/07/2024 11/07/2023 PNEUMOCOCCAL VACCINE 50+ YEA RS (3 of 3 - PCV20 [...] MAMMO BILAT DIAGNOSTIC Routine 11/07/2023 12:36 PM LABORATORY DEVELOPMENT TECHNICIAN from Last 3 Months or Most Recently Relevant to Health Maintenance Results * MAMMO BILAT DIAGNOSTIC (11/07/2023 12:36 PM LABORATORY DEVELOPMENT TECHNICIAN) Anatomical Region Laterality Modality Breast Bilateral Mammography Atif Brown MD MAMMO ORDERABLES Final Result from Last 3 Months or Most Recently Relevant to Health Maintenance Insurance MEDICARE PART A AND B [facility] Care Teams Horse Racing Manager Relationship Specialty Start Date End Date Bryant Balderas MD [address] [place] [address] PCP - General Internal Medicine 10/23/23
--- OUTSIDE RECORDS SUMMARY | 2024-12-28 16:54 | XMS_ITS | CONTINUITY OF CARE DOCUMENT ---
Author Name [email or web address] Address Unknown Organization [facility] Address [address] [place] [address] [address] [place] [address] Phone [phone] Care Team Providers Care Manager Strategy & Account Name Role Phone Venu Dallas MD Unavailable JOANIE MCGARRY, JUANA uHll Unavailable LANE RODRIGUEZ MD Unavailable [phone] INSURANCE PROVIDERS Payer name Policy type / Coverage type [place] red democrat ID [id number] [place] MED[place]ARE Medicare [id number]
--- OUTSIDE RECORDS SUMMARY | 2024-12-28 16:54 | XMS_ITS | Referral Summary ---
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 Gender Identity Not on file Sexual Orientation Not on file Last Filed Vital Signs Vital Sign Reading Time Taken Comments Blood Pressure 125/82 10/29/2023 9:14 AM GENERAL DISTILLERY WORKER Pulse 65 10/29/2023 9:14 AM GENERAL DISTILLERY WORKER Temperature 36.4 C (97.6 F) 10/29/2023 9:14 AM GENERAL DISTILLERY WORKER Respiratory Rate - - Oxygen Saturation 91% 10/29/2023 9:14 AM GENERAL DISTILLERY WORKER Inhaled Oxygen Concentration - - Weight 44 kg (97 lb) 10/29/2023 9:14 AM GENERAL DISTILLERY WORKER Height 160 cm (5' 3 ) 10/29/2023 9:14 AM GENERAL DISTILLERY WORKER Body Mass Index 17.18 10/29/2023 9:14 AM GENERAL DISTILLERY WORKER Plan of Treatment Not on file Insurance MEDICARE [facility] Care Teams Supervisor Lens Generating Relationship Specialty Start Date End Date Bryant Balderas DO [facility] [place] [address] PCP - General Family Medicine 10/29/23 Jack Arechiga MD [address] [place] [address] Referring Physician Gastroenterology 10/22/23 Mahesh Frances MD [phone] [place] [address] Surgeon Colon and Rectal Surgery 10/29/23 Gerda Correa MD [address] [place] [address] Consulting Physician Surgery 02/10/24
--- OUTSIDE RECORDS SUMMARY | 2024-12-28 16:54 | XMS_ITS | Clinical Summary ---
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 Gender Identity Not on file Sexual Orientation Not on file Obstetrics History Last Filed Vital Signs Vital Sign Reading Time Taken Comments Blood Pressure 125/82 10/29/2023 9:14 AM INSULATION HELPER Pulse 65 10/29/2023 9:14 AM INSULATION HELPER Temperature 36.4 C (97.6 F) 10/29/2023 9:14 AM INSULATION HELPER Respiratory Rate - - Oxygen Saturation 91% 10/29/2023 9:14 AM INSULATION HELPER Inhaled Oxygen Concentration - - Weight 44 kg (97 lb) 10/29/2023 9:14 AM INSULATION HELPER Height 160 cm (5' 3 ) 10/29/2023 9:14 AM INSULATION HELPER Body Mass Index 17.18 10/29/2023 9:14 AM INSULATION HELPER Plan of Treatment Health Maintenance Due Date [...] or Tdap) 10/12/2024 10/12/2014 Pneumococcal vaccine 65+ (3 of 3 - PCV20 or PCV21) 02/01/2027 02/01/2022, 05/18/2015, 09/22/2010 Zoster Vaccine Completed 09/09/2019, 07/10/2019 Insurance MEDICARE [facility] Care Teams Satellite Installation Technician Relationship Specialty Start Date End Date Bryant Balderas DO [address] [place] [address] PCP - General Family Medicine 10/29/23 Jack Arechiga MD [address] [place] [address] Referring Physician Gastroenterology 10/22/23 Mahesh Frances MD [phone] [place] [address] Surgeon Colon and Rectal Surgery 10/29/23 Gerda Correa MD [address] [place] [address] Consulting Physician Surgery 02/10/24
--- OUTSIDE RECORDS SUMMARY | 2024-12-28 16:54 | XMS_ITS | Data Portability ---
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 Name Role Phone RUSLAN OBRIEN Medical Oncologist KENNETH BARRY Pain Management ASHLEY BALDERAS Primary Care Provider [phone] Assessment Encounter Date Assessment Date Assessment LastModified by Organization Details LastModified Time 03/15/2024 03/15/2024 we will continue current therapy she has chosen not to see oncologist breast tree has been prescribed I will see her back in about 3 months COPD oxygen metastatic colon cancer discussed at length as well as her anxiety [email or web address] Not available 03/20/2024 14:01:53 06/08/2024 06/08/2024 CBC CMP LIPID PREALBUMIN level ensure or boost daily flu shot. Recommend she get COVID vaccine and RSV as well I would like to see her back in a couple of months she is still contemplating what she is going to do if anything for treatment . [email or web address] Not available 06/08/2024 21:34:37 09/01/2024 09/01/2024 stage [...] daily activity see me in 3 months [email or web address] Not available 09/04/2024 20:17:20 10/21/2024 10/21/2024 abdominal [...] not seen him for almost a year. [email or web address] Not available 10/23/2024 20:07:11 Plan of Treatment Reminders Order Date Submit Date Provider Last Modified By Organization Details Last Modified Time Details Appointments ANY 15 2024 10:15A Tamia Balderas MD Not available Not available Not available ANY 15 2024 11:00A Tamia Balderas MD Not available Not available Not available Lab CMP, serum or plasma 2024 025 [facility], [address], [place], [address], 10/22/2024 14:05:23 CBC w/ auto diff 2024 025 [facility], [address] [facility] [facility], [place], [address], 10/22/2024 14:05:23 vitamin D, 25-hydrox y, total, serum 2023 024 [facility], [address], [facility], [place], [address], 09/02/2024 08:29:00 lipid panel, serum 2023 024 [facility], [address], [place], [address], 09/02/2024 08:28:51 T3, free, serum or plasma 2023 024 [facility], [address], [place], [address], 09/02/2024 08:28:57 T4, free, serum 2023 024 [facility], [address], [place], [address], 09/02/2024 08:28:59 CBC w/ auto diff 2023 024 [facility], [address], [place], [address], 09/02/2024 08:28:56 CMP, serum or plasma 2023 024 [facility], [facility], [place], [address], 09/02/2024 08:28:52 TSH, ultra-sen sitive, serum 2023 024 [facility], [facility] [address], [place], [address], 09/02/2024 08:28:55 cobalamin and folate panel, serum 2023 024 [facility], [facility] [address], [place], [address], 09/02/2024 08:28:53 lipid panel, serum 2023 024 [facility], [facility] [address], [address], [place], [address], 06/09/2024 15:12:06 CBC 2023 024 [facility], [facility], [place], [address], 06/09/2024 15:12:08 CMP, serum or plasma 2023 024 [facility], [address], [place], [address], 06/09/2024 15:12:06 prealbumi n, serum 2023 024 [facility], [address], [place], [address], 06/09/2024 15:12:07 Referral None recorded. Procedures None recorded. Surgeries None recorded. Imaging CT, chest + abdomen + pelvis, w/ contrast 2024 025 [facility] (Imaging), [address] [place] [address] [address], [place], [address], 10/29/2024 16:36:31 Medication Orders Breztri Aerospher e 160 mcg-9mcg- 4.8mcg/ac tuation HFA aerosol inhaler 2023 024 [email or web address] [facility], [address] [facility], [place], [address], 03/15/2024 13:56:37 Patient TargetsNo targets recorded. Patient Instructions Encounter Date Encounter Id Patient Instructions Last Modified By Organization Details Last Modified Time 03/15/2024 [id number] eating healthy foods: care instructions Not available 03/15/2024 13:56:37 06/08/2024 [id number] eating healthy foods: care instructions Not available 06/08/2024 15:22:54 09/01/2024 [id number] eating healthy foods: care instructions Not available 09/01/2024 12:44:39 10/21/2024 [id number] eating healthy foods: care instructions Not available 10/21/2024 13:03:11 Reason for Referral Hospice Care Facility Referr al for Carcinoma of colon, stage IV Referring Physician: Ashley Balderas, Internal Medicine, Encounter Date: 12/28/2024 Results Created Date Observation Date Name Description Value Unit Range Abnormal Flag Note LastModifiedBy Organization Detail LastModifiedTime 06/08/2006/09/2024 LIPID PANEL cholesterol, total 217 mg/dL 100-19 9 above high normal Not Available [facility] ([facility]) [address] [facility], [place], [address], 06/09/2024 15:12:06 06/08/20 24 06/09/2024 LIPID PANEL triglyceride s 65 mg/dL 0-149 Not Available [facility] ([facility]) [address] [place], [address], 06/09/2024 15:12:06 06/08/20 24 06/09/2024 LIPID PANEL HDL cholesterol 71 mg/dL >39 Not Available [facility]) [address] [place], [address], 06/09/2024 15:12:06 06/08/20 24 06/09/2024 LIPID PANEL VLDL cholesterol amilcar 11 mg/dL 5-40 Not Available [facility] ([facility]) [address] [place], [address], 06/09/2024 15:12:06 06/08/20 24 06/09/2024 LIPID PANEL LDL chol [facility]) 135 mg/dL 0-99 above high normal Not Available [facility] ([facility]) [address] [place], [address], 06/09/2024 15:12:06 06/08/20 24 06/09/2024 COMP. METAB OLIC PANEL (14) glucose - mg/dL Test not perfo rmed. Serum was in conta ct with cells when recei desean which will make the resul t inacc urate . Not Available [facility] ([facility]) [address] [place], [address], 06/09/2024 15:12:06 06/08/20 24 06/09/2024 COMP. METAB OLIC PANEL (14) BUN 13 mg/dL 8-27 Not Available [facility] ([facility]) [address] [place], [address], 06/09/2024 15:12:06 06/08/20 24 06/09/2024 COMP. METAB OLIC PANEL (14) creatinine 0.57 mg/dL 0.57-1 .00 Not Available [facility] ([facility]) [address] [place], [address], 06/09/2024 15:12:06 06/08/20 24 06/09/2024 COMP. METAB OLIC PANEL (14) eGFR 101 mL/mi n/1.7 3 >59 Not Available [facility] ([facility]) [address] [facility], [place], [address], 06/09/2024 15:12:06 06/08/20 24 06/09/2024 COMP. METAB OLIC PANEL (14) BUN/creatini ne ratio 23 12-28 Not Available [facility] ([facility]) [address] [facility], [place], [address], 06/09/2024 15:12:06 06/08/20 24 06/09/2024 COMP. METAB OLIC PANEL (14) sodium 137 mmol/ L 134-14 4 Not Available [facility] ([facility]) [address] [facility], [place], [address], 06/09/2024 15:12:06 06/08/20 24 06/09/2024 COMP. METAB OLIC PANEL (14) potassium - mmol/ L Test not perfo rmed. Serum was in conta ct with cells when recei desean which will make the resul t inacc urate . Not Available [facility] ([facility]) [address] [facility], [place], [address], 06/09/2024 15:12:06 06/08/20 24 06/09/2024 COMP. METAB OLIC PANEL (14) chloride 92 mmol/ L 96-106 below low normal Not Available [facility] ([facility]) [address] [facility], [place], [address], 06/09/2024 15:12:06 06/08/20 24 06/09/2024 COMP. METAB OLIC PANEL (14) carbon dioxide, total 26 mmol/ L 20-29 Not Available [facility] ([facility]) [address] [facility], [place], [address], 06/09/2024 15:12:06 06/08/20 24 06/09/2024 COMP. METAB OLIC PANEL (14) calcium 9.4 mg/dL 8.7-10 .3 Not Available [facility] ([facility]) [address] [facility], [place], [address], 06/09/2024 15:12:06 06/08/20 24 06/09/2024 COMP. METAB OLIC PANEL (14) protein, total 7.0 g/dL 6.0-8. 5 Not Available [facility] ([facility]) [address] [facility], [place], [address], 06/09/2024 15:12:06 06/08/20 24 06/09/2024 COMP. METAB OLIC PANEL (14) albumin 4.3 g/dL 3.9-4. 9 Not Available [facility] ([facility]) [address] [facility], [place], [address], 06/09/2024 15:12:06 06/08/20 24 06/09/2024 COMP. METAB OLIC PANEL (14) globulin, total 2.7 g/dL 1.5-4. 5 Not Available [facility] ([facility]) [address] [facility], [place], [address], 06/09/2024 15:12:06 06/08/20 24 06/09/2024 COMP. METAB OLIC PANEL (14) bilirubin, total 0.2 mg/dL 0.0-1. 2 Not Available [facility] ([facility]) [address] [facility], [place], [address], 06/09/2024 15:12:06 06/08/20 24 06/09/2024 COMP. METAB OLIC PANEL (14) alkaline phosphatase 61 IU/L 44-121 Not Available [facility] ([facility]) [address] [facility], [place], [address], 06/09/2024 15:12:06 06/08/20 24 06/09/2024 COMP. METAB OLIC PANEL (14) AST (SGOT) 24 IU/L 0-40 Not Available [facility] ([facility]) [address] [place], [address], 06/09/2024 15:12:06 06/08/20 24 06/09/2024 COMP. METAB OLIC PANEL (14) ALT (SGPT) 14 IU/L 0-32 Not Available [facility] ([facility]) [address] [facility], [place], [address], 06/09/2024 15:12:06 06/08/20 24 06/09/2024 PREAL BUMIN prealbumin 11 mg/dL 10-36 Not Available [facility] ([facility]) [address] [facility], [place], [address], 06/09/2024 15:12:07 06/08/20 24 06/09/2024 CBC, PLATE LET, NO DIFFE RENTI AL WBC 4.9 x10e3 /uL 3.4-10 .8 Not Available [facility] ([facility]) [address] [place], [address], 06/09/2024 15:12:08 06/08/20 24 06/09/2024 CBC, PLATE LET, NO DIFFE RENTI AL RBC 4.20 x10e6 /uL 3.77-5 .28 Not Available [facility] ([facility]) [address] [place], [address], 06/09/2024 15:12:08 06/08/20 24 06/09/2024 CBC, PLATE LET, NO DIFFE RENTI AL hemoglobin 12.3 g/dL 11.1-1 5.9 Not Available [facility] ([facility]) [address] [facility], [place], [address], 06/09/2024 15:12:08 06/08/20 24 06/09/2024 CBC, PLATE LET, NO DIFFE RENTI AL hematocrit 39.9 % 34.0-4 6.6 Not Available [facility] ([facility]) [address] [facility], [place], [address], 06/09/2024 15:12:08 06/08/20 24 06/09/2024 CBC, PLATE LET, NO DIFFE RENTI AL MCV 95 fL 79-97 Not Available [facility] ([facility]) [address] [facility], [place], [address], 06/09/2024 15:12:08 06/08/20 24 06/09/2024 CBC, PLATE LET, NO DIFFE RENTI AL MCH 29.3 pg 26.6-3 3.0 Not Available [facility] ([facility]) [address] [facility], [place], [address], 06/09/2024 15:12:08 06/08/20 24 06/09/2024 CBC, PLATE LET, NO DIFFE RENTI AL MCHC 30.8 g/dL 31.5-3 5.7 below low normal Not Available [facility] ([facility]) [address] [facility], [place], [address], 06/09/2024 15:12:08 06/08/20 24 06/09/2024 CBC, PLATE LET, NO DIFFE RENTI AL RDW 12.4 % 11.7-1 5.4 Not Available [facility] ([facility]) [address] [facility], [place], [address], 06/09/2024 15:12:08 06/08/20 24 06/09/2024 CBC, PLATE LET, NO DIFFE RENTI AL platelets 230 x10e3 /uL 150-45 0 Not Available [facility] ([facility]) [address] [facility], [place], [address], 06/09/2024 15:12:08 08/15/20 24 08/15/2024 COLOG UARD [...] is negat margie. TEST DESCR IPTIO N: [place] site algor ithmi c joseph sis of stool DNA-b iodarshan kers with hemog lobin immun oassa y. Quant itati ve value s of indiv idual bioma rkers are not repor table and are not assoc iated with indiv idual bioma rker resul t refer ence range s. Colog uard is inten ded for color ectal cance r scree khoi of adult s of eithe r sex, 45 years or older , who are at [facility] for color ectal cance r (CRC) . Colog uard has been appro desean for use by the [place]. FDA. The perfo rmanc e of Colog uard was estab lishe d in a cross secti onal study of [facility] adult s aged 50-84 . Colog [...] of 10,00 0 indiv idual s at [facility] risk for color ectal cance r [...] ution s can be found at www.c blaiseu elisa.c om. Not Available [facility] (Cologuard Orders Only) [address], [place], [address], 08/22/2024 17:30:49 09/01/20 24 09/02/2024 LIPID PANEL cholesterol, total 189 mg/dL 100-19 9 Not Available [facility] ([facility]) [address] [facility], [place], [address], 09/02/2024 08:28:50 09/01/20 24 09/02/2024 LIPID PANEL triglyceride s 71 mg/dL 0-149 Not Available [facility] ([facility]) [address] [facility], [place], [address], 09/02/2024 08:28:50 09/01/20 24 09/02/2024 LIPID PANEL HDL cholesterol 71 mg/dL >39 Not Available [facility] ([facility]) [address] [facility], [place], [address], 09/02/2024 08:28:50 09/01/20 24 09/02/2024 LIPID PANEL VLDL cholesterol amilcar 13 mg/dL 5-40 Not Available [facility] ([facility]) [address] [place], [address], 09/02/2024 08:28:50 09/01/20 24 09/02/2024 LIPID PANEL LDL chol calc ([facility]) 105 mg/dL 0-99 above high normal Not Available [facility] ([facility]) [address] [place], [address], 09/02/2024 08:28:50 09/01/20 24 09/02/2024 COMP. METAB OLIC PANEL (14) glucose 73 mg/dL 70-99 Not Available [facility] ([facility]) [address] [place], [address], 09/02/2024 08:28:52 09/01/20 24 09/02/2024 COMP. METAB OLIC PANEL (14) BUN 14 mg/dL 8-27 Not Available [facility] ([facility]) [address] [place], [address], 09/02/2024 08:28:52 09/01/20 24 09/02/2024 COMP. METAB OLIC PANEL (14) creatinine 0.46 mg/dL 0.57-1 .00 below low normal Not Available [facility] ([facility]) [address] [place], [address], 09/02/2024 08:28:52 09/01/20 24 09/02/2024 COMP. METAB OLIC PANEL (14) eGFR 106 mL/mi n/1.7 3 >59 Not Available [facility] ([facility]) [address] [place], [address], 09/02/2024 08:28:52 09/01/20 24 09/02/2024 COMP. METAB OLIC PANEL (14) BUN/creatini ne ratio 30 12-28 above high normal Not Available [facility] ([facility]) [address] [place], [address], 09/02/2024 08:28:52 09/01/20 24 09/02/2024 COMP. METAB OLIC PANEL (14) sodium 138 mmol/ L 134-14 4 Not Available [facility] ([facility]) [address] [place], [address], 09/02/2024 08:28:52 09/01/20 24 09/02/2024 COMP. METAB OLIC PANEL (14) potassium 4.0 mmol/ L 3.5-5. 2 Not Available [facility] ([facility]) [address] [place], [address], 09/02/2024 08:28:52 09/01/20 24 09/02/2024 COMP. METAB OLIC PANEL (14) chloride 94 mmol/ L 96-106 below low normal Not Available [facility] ([facility]) [address] [place], [address], 09/02/2024 08:28:52 09/01/20 24 09/02/2024 COMP. METAB OLIC PANEL (14) carbon dioxide, total 28 mmol/ L 20-29 Not Available [facility] ([facility]) [address] [place], [address], 09/02/2024 08:28:52 09/01/20 24 09/02/2024 COMP. METAB OLIC PANEL (14) calcium 9.2 mg/dL 8.7-10 .3 Not Available [facility] ([facility]) [address] [place], [address], 09/02/2024 08:28:52 09/01/20 24 09/02/2024 COMP. METAB OLIC PANEL (14) protein, total 6.3 g/dL 6.0-8. 5 Not Available [facility] ([facility]) [address] [place], [address], 09/02/2024 08:28:52 09/01/20 24 09/02/2024 COMP. METAB OLIC PANEL (14) albumin 3.8 g/dL 3.9-4. 9 below low normal Not Available [facility] ([facility]) [address] [facility] [place], [address], 09/02/2024 08:28:52 09/01/20 24 09/02/2024 COMP. METAB OLIC PANEL (14) globulin, total 2.5 g/dL 1.5-4. 5 Not Available [facility] ([facility]) [address] [facility] [place], [address], 09/02/2024 08:28:52 09/01/20 24 09/02/2024 COMP. METAB OLIC PANEL (14) bilirubin, total 0.2 mg/dL 0.0-1. 2 Not Available [facility] ([facility]) [address] [facility] [place], [address], 09/02/2024 08:28:52 09/01/20 24 09/02/2024 COMP. METAB OLIC PANEL (14) alkaline phosphatase 72 IU/L 44-121 Not Available [facility]) [address] [facility] [place], [address], 09/02/2024 08:28:52 09/01/20 24 09/02/2024 COMP. METAB OLIC PANEL (14) AST (SGOT) 25 IU/L 0-40 Not Available [facility] ([facility]) [address] [facility] [place], [address], 09/02/2024 08:28:52 09/01/20 24 09/02/2024 COMP. METAB OLIC PANEL (14) ALT (SGPT) 16 IU/L 0-32 Not Available [facility] ([facility]) [address] [facility] [place], [address], 09/02/2024 08:28:52 09/01/20 24 09/02/2024 VITAM IN B12 AND FOLAT E vitamin B12 335 pg/mL 232-12 45 Not Available [facility] ([facility]) [address] [place], [address], 09/02/2024 08:28:53 09/01/20 24 09/02/2024 VITAM IN B12 AND FOLAT E folate (folic acid), serum 12.1 NG/mL >3.0 A serum folat e krystian ntrat ion of less than 3.1 ng/mL is consi dered to repre sent clini amilcar defic iency . Not Available [facility] ([facility]) [address] [place], [address], 09/02/2024 08:28:53 09/01/20 24 09/02/2024 TSH TSH 4.810 uIU/m L 0.450- 4.500 above high normal Not Available [facility] ([facility]) [address] [place], [address], 09/02/2024 08:28:55 09/01/20 24 09/01/2024 CBC WITH DIFFE RENTI AL/PL ATELE T WBC 5.9 x10e3 /uL 3.4-10 .8 Not Available [facility] ([facility]) [address] [place], [address], 09/02/2024 08:28:56 09/01/20 24 09/01/2024 CBC WITH DIFFE RENTI AL/PL ATELE T RBC 3.70 x10e6 /uL 3.77-5 .28 below low normal Not Available [facility] ([facility]) [address] [place], [address], 09/02/2024 08:28:56 09/01/20 24 09/01/2024 CBC WITH DIFFE RENTI AL/PL ATELE T hemoglobin 10.7 g/dL 11.1-1 5.9 below low normal Not Available [facility] ([facility]) [address] [place], [address], 09/02/2024 08:28:56 09/01/20 24 09/01/2024 CBC WITH DIFFE RENTI AL/PL ATELE T hematocrit 34.9 % 34.0-4 6.6 Not Available [facility] ([facility]) [address] [facility], [place], [address], 09/02/2024 08:28:56 09/01/20 24 09/01/2024 CBC WITH DIFFE RENTI AL/PL ATELE T MCV 94 fL 79-97 Not Available [facility] ([facility]) [address] [place], [address], 09/02/2024 08:28:56 09/01/20 24 09/01/2024 CBC WITH DIFFE RENTI AL/PL ATELE T MCH 28.9 pg 26.6-3 3.0 Not Available [facility] ([facility]) [address] [place], [address], 09/02/2024 08:28:56 09/01/20 24 09/01/2024 CBC WITH DIFFE RENTI AL/PL ATELE T MCHC 30.7 g/dL 31.5-3 5.7 below low normal Not Available [facility] ([facility]) [address] [place], [address], 09/02/2024 08:28:56 09/01/20 24 09/01/2024 CBC WITH DIFFE RENTI AL/PL ATELE T RDW 12.0 % 11.7-1 5.4 Not Available [facility] ([facility]) [address] [place], [address], 09/02/2024 08:28:56 09/01/20 24 09/01/2024 CBC WITH DIFFE RENTI AL/PL ATELE T platelets 214 x10e3 /uL 150-45 0 Not Available [facility] ([facility]) [address] [place], [address], 09/02/2024 08:28:56 09/01/20 24 09/01/2024 CBC WITH DIFFE RENTI AL/PL ATELE T neutrophils 82 % notest ab. Not Available [facility] ([facility]) [address] [facility], [place], [address], 09/02/2024 08:28:56 09/01/20 24 09/01/2024 CBC WITH DIFFE RENTI AL/PL ATELE T lymphs 8 % notest ab. Not Available [facility] ([facility]) [address] [facility], [place], [address], 09/02/2024 08:28:56 09/01/20 24 09/01/2024 CBC WITH DIFFE RENTI AL/PL ATELE T monocytes 8 % notest ab. Not Available [facility] ([facility]) [address] [facility], [place], [address], 09/02/2024 08:28:56 09/01/20 24 09/01/2024 CBC WITH DIFFE RENTI AL/PL ATELE T eos 1 % notest ab. Not Available [facility] ([facility]) [address] [facility], [place], [address], 09/02/2024 08:28:56 09/01/20 24 09/01/2024 CBC WITH DIFFE RENTI AL/PL ATELE T basos 1 % notest ab. Not Available [facility] ([facility]) [address] [facility], [place], [address], 09/02/2024 08:28:56 09/01/20 24 09/01/2024 CBC WITH DIFFE RENTI AL/PL ATELE T neutrophils (absolute) 4.9 x10e3 /uL 1.4-7. 0 Not Available [facility] ([facility]) [address] [facility], [place], [address], 09/02/2024 08:28:56 09/01/20 24 09/01/2024 CBC WITH DIFFE RENTI AL/PL ATELE T lymphs (absolute) 0.5 x10e3 /uL 0.7-3. 1 below low normal Not Available [facility] ([facility]) [address] [facility], [place], [address], 09/02/2024 08:28:56 09/01/20 24 09/01/2024 CBC WITH DIFFE RENTI AL/PL ATELE T monocytes(ab solute) 0.5 x10e3 /uL 0.1-0. 9 Not Available [facility] ([facility]) [address] [place], [address], 09/02/2024 08:28:56 09/01/20 24 09/01/2024 CBC WITH DIFFE RENTI AL/PL ATELE T eos (absolute) 0.1 x10e3 /uL 0.0-0. 4 Not Available [facility] ([facility]) [address] [place], [address], 09/02/2024 08:28:56 09/01/20 24 09/01/2024 CBC WITH DIFFE RENTI AL/PL ATELE T baso (absolute) 0.1 x10e3 /uL 0.0-0. 2 Not Available [facility] ([facility]) [address] [place], [address], 09/02/2024 08:28:56 09/01/20 24 09/01/2024 CBC WITH DIFFE RENTI AL/PL ATELE T immature granulocytes 0 % notest ab. Not Available [facility] ([facility]) [address] [place], [address], 09/02/2024 08:28:56 09/01/20 24 09/01/2024 CBC WITH DIFFE RENTI AL/PL ATELE T immature grans (abs) 0.0 x10e3 /uL 0.0-0. 1 Not Available [facility] ([facility]) [address] [place], [address], 09/02/2024 08:28:56 09/01/20 24 09/02/2024 TRIIO DOTHY MONO E (T3), FREE triiodothyro nine (T3), free 2.0 pg/mL 2.0-4. 4 Not Available [facility] ([facility]) [address] [place], [address], 09/02/2024 08:28:57 09/01/20 24 09/02/2024 T4,FR EE(DI RECT) T4,free(dire ct) 1.07 NG/dL 0.82-1 .77 Not Available [facility] ([facility]) [address] [facility], [place], [address], 09/02/2024 08:28:59 09/01/20 24 09/02/2024 VITAM IN [...] Alex cabrera DC: [facility] . 2. Maikol schmitz MF, Belle rios [place], Dilma off-F errar i GILLETTE, et al. Evalu ation , treat ment, and preve ntion of vitam in D defic iency : an Endoc rine Socie ty clini amilcar pract ice guide line. JCEM. 2010; 96(7) :1911 -30. Not Available [facility] ([facility]) [address] [facility], [place], [address], 09/02/2024 08:29:00 10/29/19 25 10/29/2024 CT, chest + abdom en + pelvi s, w/ contr ast No observ ation record ed. [facility] [address], [place], [address], 11/03/2024 13:48:27 10/29/19 25 10/29/2024 CT, chest + abdom en + pelvi s, w/ contr ast No observ ation record ed. [facility] [address], [place], [address], 11/03/2024 13:48:28 Result Notes None recorded. Problems Name Problem SNOMED Code Status Onset Date Resolution Date Notes Provider Name and Address Organization Details Recorded Time Malignant tumor of colon 665811782 Active 2023 OPAL Barney, [place] - [facility] 4 10:30:15 Fatigue 19704408 Active 2023 Nathan Ruffin [place] null, [place] - [facility] 4 10:30:16 Vitamin D deficiency 97293685 Active 2023 Nathan Ruffin [place], [place] [facility] 4 11:00:20 Screening for cardiovascular system disease Active 2023 Nathan Ruffin [place], [place] [facility] 4 11:00:21 Abdominal pain 16191055 Active 2024 Nathan Ruffin [place] null, [place] [facility] 5 11:26:52 Carcinoma of colon, stage IV 332892676 Active 2024 Ashley Balderas MD Attn: Esvin varghese,[id number] [facility], [place], [address], [place] - [facility] 5 20:05:46 Swelling of lower leg 308464718 Active 2024 Nathan Ruffin [place] null, [place] [facility] 5 12:41:22 Disorder of lipid metabolism 672169745 Active Soham Daly MD Attn: Esvin [id number] [facility], [place], [address], [place] - [facility] 6 14:21:43 Trying to give up smoking 871520410 Active Soham Daly MD Attn: Esvin g,[address] [facility], [place], [address], [place] - [facility] 6 13:28:00 Acute bronchitis 68514891 Active Soham Daly MD Attn: Esvin halima,[address] [facility], [place], [address], [place] [facility] 6 14:21:43 Chronic obstructive pulmonary disease [id number] Active Soham Daly MD Attn: Esvin halima,[address] [facility], [place], [address], [place] [facility] 6 14:21:43 Problem Notes None recorded. Procedures Surgical History Date Name Laterality Status Provider Name and Address Organization Details Recorded Time 4 Repair rotator cuff acute completed Soham Daly MD Attn: Accounting,[address] [facility], [place], [address], [place] [facility] 10/12/2014 11:37:15 Imaging Results Imaging Date Name Status LastModified by Organiz ation Details LastModified Time 10/29/2024 CT, chest + abdomen + pelvis, w/ contrast completed [place] [address] [place] [address], [id number], 11/03/2024 13:48:27 10/29/2024 CT, chest + abdomen + pelvis, w/ contrast completed [facility] [address] [place] [place] [address], [address], 11/03/2024 13:48:28 Procedure Notes None recorded. Medical Equipment None [...] Not Available prednison e 10 mg tablet 2024 active Not Available Not Available Not Avai lable atorvasta tin 10 mg tablet Take 1 [...] completed Not Available Not Available Not Available furosemid e 20 mg tablet TAKE 1 TABLET BY MOUTH ONCE DAILY NEEDED FOR EDEMA active Not Available Not Available No t Available albuterol sulfate HFA 90 mcg/actua tion aerosol inhaler Inhale 2 puffs every 4 hours by inhalati on route. 2024 active Not Available Not Available Not Avai lable Vitamin D2 1,250 mcg (50,000 unit) capsule [...] Updated DateTime 4 157.48 cm 17.4 kg/m2 35166.4 2 g 70 /min 95 % 95 % 2 L/min 0 104 mm[Hg] 68 mm[Hg] CORY Garcia [place] - [facility] 4 11:29:48 Date Recorded Body height Body mass index (BMI) Body weight Heart rate Oxygen saturation Oxygen saturation in Arterial blood by Pulse oximetry Inhaled oxygen flow rate Systolic blood pressure Diastolic blood pressure Provider Name and Address Organization Details Last Updated DateTime 4 157.48 cm 16.1 kg/m2 83121.8 5 g 87 /min 98 % 98 % 3 L/min 100 mm[Hg] 72 mm[Hg] Selam Perez [place] - [facility] 4 11:10:13 Date Recorded Body height Body mass index (BMI) Body weight Oxygen saturation Oxygen saturation in Arterial blood by Pulse oximetry Inhaled oxygen flow rate Heart rate Systolic blood pressure Diastolic blood pressure Provider Name and Address Organization Details Last Updated DateTime 4 157.48 cm 15.9 kg/m2 21178.9 g 90 % 90 % 3 L/min 92 /min 110 mm[Hg] 82 mm[Hg] Selam [facility] - [facility] 4 10:07:44 Date Recorded Body height Body mass index (BMI) Body weight Heart rate Oxygen saturation Oxygen saturation in Arterial blood by Pulse oximetry Inhaled oxygen flow rate Systolic blood pressure Diastolic blood pressure Provider Name and Address Organization Details Last Updated DateTime 5 157.48 cm 15.8 kg/m2 83960.6 6 g 76 /min 93 % 93 % 3 L/min 98 mm[Hg] 64 mm[Hg] [facility] - [facility] 5 10:37:12 Date Recorded Body height Body mass index (BMI) Body weight Heart rate Provider Name and Address Organization Details Last Updated DateTime 12/28/2024 157.48 cm 15.7 kg/m2 80825.94 g 84 /min [facility] - [facility] 12/28/2024 11:41:56 Social History Question Answer Notes LastModified by Organizat ion Details LastModified Time Tobacco Smoking Status [place] [facility] 10/12/2014 11:26:12 Do You Have [...] Date Of Your Most Recent Tobacco Screening? 12/28/2024 Information not available 12/28/2024 How Many Children Do You Have? 2 [...] What Date Was Tobacco Cessation Counseling Provided? 12/28/2024 Information not available 12/28/2024 How Many Years Have You Smoked Tobacco? [...] split virus, quadrivalent, preservative 7 completed Maddison Payton RMA null, [place] [facility] 03/15/2024 11:24:06 [...] split virus, quadrivalent, PF 8 completed Maddison Pay[place] R[place] [facility] 03/15/2024 11:24:07 pneumococcal polysaccharide PPV23 1 completed Soham Daly MD Attn: Accounting,[address] [facility], [place], [address], [place] [facility] 04/19/2015 11:56:55 Influenza, high-dose, trivalent, PF 4 completed Soham Daly MD Attn: Accounting,[address], [place], [address], [facility] - [facility] 04/19/2015 11:57:26 Pneumococcal conjugate PCV 13 5 completed Soham Daly MD Attn: Accounting,[address] [facility], [place], [address], [facility] - [facility] 11/20/2015 12:51:26 Influenza, split virus, quadrivalent, preservative 5 completed Not Available [facility] 10/09/2019 02:49:11 Influenza, split virus, trivalent, preservative 4 completed Ashley Balderas MD Attn: Accounting,[address] [facility], [place], [address], [facility] - [facility] 06/08/2024 21:31:31 Past Encounters Encounter ID Performer Location Encounter Start Date Encounter Closed Date Diagnosis/Indication Diagnosis SNOMED-CT Code Diagnosis ICD10 Code Diagnosis Note [id number] December OPAL Rojas (Adult Med) [address] [place] [address] 10/12/2014 10:55:06 10/12/2014 12:10:05 Chronic obstructive pulmonary disease 55904350 Follows up with Dr. Cannon she is not sure if she needs a referral. Flu vaccine is current and Pneumovax was administer ed in ? She will need Prevnar 13 from her local pharmacist and a handwritte n script was given to the patient. 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 Labs have been ordered and she would benefit from Prevnar 13. Last CXR was ?, she stopped in 2012. Her records from Dr. Balderas will also be useful. [id number] David (Adult Med) [address] [place] [address] 01/18/2015 12:05:05 01/18/2015 13:36:40 Chronic obstructive pulmonary disease 99814429 Pneumovax was administer ed in ? She really needs Prevnar 13 from her local pharmacist and a handwritte n script was again given to the patient. CXR findings were discussed, there are issues with her new insurance and her out of pocket expenses, I have reassured her that we will see her regardless of her insurance status. Disorder o f lipid metabolism 405853430 Low CHO, low fat diet and then repeat labs in 6 weeks. Screening for cancer 52219892 MMG as scheduled, she will reconsider the colonoscop y as previously ordered. [id number] Anna Rojas MA [facility] (Adult Med) [address] [place] [id number] 04/19/2015 11:37:03 04/19/2015 12:12:47 Chronic obstructive pulmonary disease 43066686 Prevnar 13 from her local pharmacist . Labs as previously ordered Tobacco use was discontinu ed in 2012, she however still smokes e-cigarett es, I have discourage d this as well [id number] Anna Rojas MA [facility] (Adult Med) [address] [place] [address] 06/28/2015 10:57:15 06/28/2015 13:56:31 Influenza vaccine needed 7101476699 106 Z28.3 Disorder o f lipid metabolism 086802854 E78.9 Continue low CHO, low fat diet and start Pravastati n 40mg po daily. Side effects were discussed Repeat labs in 6 weeks Chronic ob structive pulmonary disease 88908713 J44.9 Tobacco use was discontinu ed in 2012, she however still smokes e-cigarett es, I have discourage d this as well [id number] Soham Daly MD [facility] (Adult Med) [address] [place] [phone] 11/20/2015 11:52:48 11/20/2015 13:25:09 Screening for cancer 94191745 Z12.9 MMG to be scheduled, she will reconsider the colonoscop y, [employer] for Pap. Screening for malignant neoplasm of colon 314330571 Z12.11 Screening for malignant neoplasm of breast 454907103 Z12.39 Trying to give up smoking 575147590 Z72.0 She was advised to discontinu e the e-cigarett e Disorder o f lipid metabolism 040531538 E78.9 Ms. Wilson returns, she is not really sure why she is here today, the plan was start Pravastati n, obtain labs in 6 weeks and then follow up. She shoud restart her Pravastati n 40mg po daily. Labs in 6 weeks Chronic ob structive pulmonary disease 85116617 J44.9 Tobacco use was discontinu ed in 2012, she however still smokes e-cigarett es, I have discourage d this as well [id number] MD David Richard (Adult Med) [address] [place] [id number] 05/21/2016 11:50:22 05/21/2016 12:51:36 Disorder of lipid metabolism 775178698 E78.9 She shoud remain on the Pravastati n 40mg po daily, I have once again explained this to her as the issue appears to have been her detuctible and the cost of the medication . Chronic ob structive pulmonary disease 78513356 J44.9 Tobacco use was discontinu ed in 2012, she however still smokes e-cigarett es, I have discourage d this once again. Her pulmonolog ist, Dr. Cannon is moving to [place]. Adult [facility] examination 877260136 Z00.00 Acute bronchitis 2430384 2 J20.9 She reports an illness 3 weeks ago, she is better somewhat. Screening for malignant neoplasm of colon 858331362 Z12.11 Refused You can't talk me into it yet [id number] Ashley Balderas MD [facility] [address] [place] [address] 03/15/2024 11:00:42 03/15/2024 12:15:12 Underweight 036082686 R63.6 Chronic ob structive pulmonary disease 89758317 J44.9 Chronic hy poxemic respiratory failure 749196622 J96.11 Anxiety 64795050 F41.9 Metastatic malignant neoplasm to colorectum 4362368997 C80.1 [id number] MD David Ramos (Adult Med) [address] [place] [id number] 06/08/2024 10:55:42 06/08/2024 11:57:08 Underweight 444510876 R63.6 Administra tion of influenza vaccine 66303384 Z23 Screening for cardiovascular system disease 639564077 Z13.6 Hyperlipidemia 05268618 E78.5 Chronic hy poxemic respiratory failure 416304386 J96.11 Chronic ob structive pulmonary disease 97749364 J44.9 Moderate protein-calorie malnutrition (weight for age 60-74 percent of standard) 108448521 E44.0 [id number] MD David Ramos (Adult Med) [address] [place] [address] 09/01/2024 09:47:46 09/01/2024 10:32:43 Underweight 932498607 R63.6 Malignant tumor of colon 430274720 C18.9 Fatigue 48812412 R53.83 Chronic ob structive pulmonary disease 67641539 J44.9 Screening for cardiovascular system disease 944978374 Z13.6 Vitamin D deficiency 347 40426 E55.9 Carcinoma of colon, stage IV 529589219 C18.9 [id number] Ashley Balderas MD [facility] [address] [place] [address] 10/21/2024 10:23:42 10/21/2024 11:29:41 Underweight 283478394 R63.6 Abdominal pain 11866349 R10.9 Chronic ob structive pulmonary disease 11273440 J44.9 Carcinoma of colon, stage IV 177318136 C18.9 [id number] David (Adult Med) [address] [place] [phone] 12/28/2024 11:13:35 12/28/2024 12:35:28 Body mass index less than 20 312660308 Z68.1 Underweight 336122768 R6 3.6 Swelling of lower leg 44 3606038 R22.40 R60.0 Carcinoma of colon, stage IV 218636166 C18.9 Health Concerns Section Related Observation LastModified by Organization Detai ls LastModified Time None Recorded Concern Status LastModified by Organization Details LastModified Time None Recorded Advance Directives Directive Y: Payers Encounter Date Sequence Insurance Name Policy Number Policy San Covered Member ID San Member ID Guarantor Name 03/15/2024 2 [employer] Manfred Wilson [id number] Manfred Wilson 03/15/2024 1 [place] Manfred Wilson [id number] Manfred Wilson 06/08/2024 2 [employer] Rothmann Wilson [id number] Manfred Wilson 06/08/2024 [place] - RHC - FQHC Manfred Wilson [id number] Manfred Wilson 09/01/2024 1 [place] Manfred R Wilson [id number] Manfred Wilson 09/01/2024 2 [employer] (MEDICARE SUPPLEMENT) Manfred R Wilson [id number] Manfred Wilson 10/21/2024 1 [place] Manfred R Wilson [id number] Manfred Wilson 10/21/2024 2 [employer] (MEDICARE SUPPLEMENT) Manfred R Wilson [id number] Manfred Wilson Notes Date Note Type Note Provider Name and Address Organization Details Recorded Time 03/15/2024 text/html 63-year-old metastatic colon cancer chronic hypoxic respiratory failure on 2 L oxygen anxiety dyslipidemia but she is not taking her statin overall seems to be doing fine she has been seeing a pain management doctor and getting some medical marijuana Ashley Balderas MD Attn: Accounting,[address] [place], [address], [facility] - [facility] 03/20/2024 14:02:34 06/08/2024 text/html 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 Breathing okay. Does have some fatigue Ashley Balderas MD Attn: Accounting,[address] [place], [address], [place] [facility] 09/04/2024 20:18:48 10/21/2024 text/html she has been hav ing some left upper quadrant pain a feeling of fullness no nausea vomiting bowel movements not affect. She has lost few lb since last visit. COPD her breathing has been stable and she continues to use the oxygen Ashley Balderas MD Attn: Accounting,[address] [facility], [place], [address], [facility] - [facility] 10/23/2024 20:07:47 OBGyn Episode No OBEpisode recorded.
== END 2024-12-28 15:50 | disposition home or self-care (01) ==
PROVIDERS: PCP Internal Medicine; Visit Provider Internal Medicine
DX: R22.40 Localized swelling, mass and lump, unspecified lower limb (principal)
CPT/HCPCS: 93971